=== PATIENT | male | born 1980 | race Caucasian/White ===

== ENCOUNTER 2017-03-26 13:15 | Emergency (ER) | payer OTHER ==
[2017-03-26] MEDS ORDERED: ASPIRIN 325 MG TABLET, ENT COATED PO ONE (13:55)
[2017-03-26] MEDS ORDERED: CLONIDINE HCL 0.2 MG TABLET PO ONE (13:55)
[2017-03-26] MEDS ORDERED: ASPIRIN 325 MG TABLET PO ONE (13:55)
--- NOTE | 2017-03-26 13:58 | ER Document Report ---
ED Medical Screen (RME) - General Chief Complaint: Cough Stated Complaint: CHEST PAIN Time Seen by Provider: 03/26/17 13:54 Mode of Arrival: Wheelchair Information source: Patient, Relative TRAVEL OUTSIDE OF THE [place] IN LAST 30 DAYS: No - HPI Patient complains to provider of: CP/legs swelling Onset: Other - Pt with SSCP for the past several days (has h/o IDDM and HTN) and bilateral leg swelling for the past several months. [place]. - Related Data Allergies/Adverse Reactions: clarithromycin [From Biaxin] Allergy (Verified 03/26/17 13:24) Past Medical History Renal/ Medical History: Denies: Hx Peritoneal Dialysis Physical Exam - Vital signs Vitals: Temp Pulse Resp BP Pulse Ox 98.1 F 87 14 209/116 H 96 03/26/17 13:23 03/26/17 13:23 03/26/17 13:23 03/26/17 13:23 03/26/17 13:23 Course - Vital Signs Vital signs: Temp Pulse Resp BP Pulse Ox 98.1 F 87 14 209/116 H 96 03/26/17 13:23 03/26/17 13:23 03/26/17 13:23 03/26/17 13:23 03/26/17 13:23
--- NOTE | 2017-03-26 14:43 | RADIOLOGY REPORT (SQ) ---
EXAM DESCRIPTION: CHEST PA/LAT COMPLETED DATE/TIME: 03/26/2017 2:32 pm REASON FOR STUDY: CP COMPARISON: None. EXAM PARAMETERS: NUMBER OF VIEWS: two views TECHNIQUE: Digital Frontal and Lateral radiographic views of the chest acquired. RADIATION DOSE: NA LIMITATIONS: none FINDINGS: LUNGS AND PLEURA: No opacities, masses or pneumothorax. No pleural effusion. MEDIASTINUM AND HILAR STRUCTURES: No masses or contour abnormalities. HEART AND VASCULAR STRUCTURES: Heart normal size. No evidence for failure. BONES: No acute findings. HARDWARE: None in the chest. OTHER: No other significant finding. IMPRESSION: NO SIGNIFICANT RADIOGRAPHIC FINDING IN THE CHEST. TECHNICAL DOCUMENTATION: JOB ID: [id number] [employer]- All Rights Reserved
[2017-03-26 14:44] LABS: ABSOLUTE BASOPHILS # (AUTO) 0.1 10^3/uL (0.0-0.2); ABSOLUTE EOSINOPHILS # (AUTO) 0.3 10^3/uL (0.0-0.6); ABSOLUTE LYMPHOCYTES (AUTO) 1.6 10^3/uL (0.5-4.7); ABSOLUTE MONOCYTES (AUTO) 0.5 10^3/uL (0.1-1.4); BASOPHILS % (AUTO) 1.8 % (0-2); HEMATOCRIT 37.5 % (37.9-51.0); HEMOGLOBIN 12.7 g/dL (13.5-17.0); HGB HCT DIFFERENCE 0.6; LYMPHOCYTES % (AUTO) 21.3 % (13-45); MEAN CORPUSCULAR HEMOGLOBIN 27.5 pg (27.0-33.4); MEAN CORPUSCULAR HGB CONC 33.7 g/dL (32.0-36.0); MEAN CORPUSCULAR VOLUME 82 fl (80-97); MONOCYTES % (AUTO) 6.4 % (3-13); RED CELL DISTRIBUTION WIDTH 12.5 % (11.5-14.0); SEGMENTED NEUTROPHILS % (AUTO) 66.5 % (42-78); WHITE BLOOD COUNT 7.5 10^3/uL (4.0-10.5)
[2017-03-26 14:51] LABS: ALANINE AMINOTRANSFERASE 31 U/L (21-72); ALBUMIN 3.4 g/dL (3.5-5.0); ALKALINE PHOSPHATASE 240 U/L (38-126); ANION GAP 10 (5-19); ASPARTATE AMINO TRANSFERASE 16 U/L (17-59); BILIRUBIN,DIRECT 0.4 mg/dL (0.0-0.4); BILIRUBIN,TOTAL 0.5 mg/dL (0.2-1.3); BLOOD UREA NITROGEN 28 mg/dL (7-20); CALCIUM 8.7 mg/dL (8.4-10.2); CARBON DIOXIDE 29 mmol/L (22-30); CHLORIDE 92 mmol/L (98-107); CREATINE KINASE 259 U/L (55-170); POTASSIUM 4.5 mmol/L (3.6-5.0); SODIUM 131.4 mmol/L (137-145); TOTAL PROTEIN 6.1 g/dL (6.3-8.2)
[2017-03-26 14:52] LABS: CREATININE RESULT 1.54 mg/dL (0.52-1.25)
[2017-03-26 15:03] LABS: CREATINE KINASE MB 7.44 ng/mL (<4.55)
[2017-03-26 15:08] LABS: TROPONIN I 0.036 ng/mL
[2017-03-26 15:09] LABS: GLUCOSE 502 mg/dL (75-110)
[2017-03-26] MEDS ORDERED: INSULIN REG, HUMAN 100 UNIT/ML 3 ML VIAL (PYX) SUBCUT ONE (15:14)
[2017-03-26] MEDS ORDERED: NORMAL SALINE 1000 ML 1,000 ML IV PRN (15:14)
[2017-03-26] MEDS ORDERED: FUROSEMIDE 20 MG TABLET PO ONE (15:46)
--- NOTE | 2017-03-26 17:02 | RADIOLOGY REPORT (SQ) ---
EXAM DESCRIPTION: HIP RIGHT AP/LATERAL COMPLETED DATE/TIME: 03/26/2017 4:50 pm REASON FOR STUDY: pain COMPARISON: None. NUMBER OF VIEWS: Two views. TECHNIQUE: AP pelvis and additional frog-leg view of the right hip. LIMITATIONS: None. FINDINGS: MINERALIZATION: Normal. RIGHT HIP: No fracture or dislocation. No worrisome bone lesions. No contour deformity. No joint sp eliecer narrowing. LEFT HIP: No fracture or dislocation. No worrisome bone lesions. PUBIS AND ISCHIUM: No fracture. PELVIS: No fracture. SACRUM: No fracture or dislocation. No worrisome bone lesions. LOWER LUMBAR SPINE: No fracture or dislocation. No worrisome bone lesions. No significant disc disea se. SOFT TISSUES: No findings. OTHER: No other significant finding. IMPRESSION: NEGATIVE STUDY OF THE RIGHT HIP. NO EXPLANATION FOR PAIN. TECHNICAL DOCUMENTATION: JOB ID: [id number] [employer]- All Rights Reserved
--- NOTE | 2017-03-26 17:32 | ER Document Report ---
ED Respiratory Problem - General Chief Complaint: Cough Stated Complaint: CHEST PAIN Time Seen by Provider: 03/26/17 13:54 Mode of Arrival: Wheelchair Information source: Patient TRAVEL OUTSIDE OF THE [place] IN LAST 30 DAYS: No - HPI Patient complains to provider of: Cough, Short of breath Onset: Other - 3 days Duration: Worse/persistent Quality of pain: Achy Severity: Mild Short of Breath: Mild Associated symptoms: Ankle/leg swelling, Congestion, Cough, Short of breath Notes: She is a 37-year-old male with a history of diabetes which is poorly controlled on metformin, presenting to the emergency room complaining of lower extremity swelling that has been going on for quite some time, with some chest tightness and coughing which led to vomiting earlier today, and right-sided hip pain, he denies any injury, no fevers, cough is nonproductive, he does also nonhealing wounds to the plantar surface of his right great toe that has been there for greater than 1 year - Related Data Allergies/Adverse Reactions: clarithromycin [From Biaxin] Allergy (Verified 03/26/17 13:24) Past Medical History - General Information source: Patient, Relative - Social History Smoking Status: Former Smoker Frequency of alcohol use: Rare Drug Abuse: None Family History: Reviewed & Not Pertinent - Past Medical History Cardiac Medical History: Reports: Hx Hypertension Endocrine Medical History: Reports: Hx Diabetes Mellitus Type 2 Renal/ Medical History: Denies: Hx Peritoneal Dialysis Review of Systems - Review of Systems Constitutional: No symptoms reported EENT: No symptoms reported Cardiovascular: See HPI Respiratory: See HPI Gastrointestinal: See HPI Genitourinary: No symptoms reported Male Genitourinary: No symptoms reported Musculoskeletal: See HPI Skin: No symptoms reported Hematologic/Lymphatic: No symptoms reported Neurological/Psychological: No symptoms reported -: Yes All other systems reviewed and negative Physical Exam - Vital signs Vitals: Temp Pulse Resp BP Pulse Ox 98.1 F 87 14 209/116 H 96 03/26/17 13:23 03/26/17 13:23 03/26/17 13:23 03/26/17 13:23 03/26/17 13:23 Interpretation: Hypertensive - General General appearance: Appears well, Alert In distress: None - HEENT Head: Normocephalic, Atraumatic Eyes: Normal Pupils: PERRL - Respiratory Respiratory status: No respiratory distress Chest status: Nontender Breath sounds: Normal Chest palpation: Normal - Cardiovascular Rhythm: Regular Heart sounds: Normal auscultation Murmur: No - Abdominal Inspection: Normal Distension: No distension Bowel sounds: Normal Tenderness: Nontender Organomegaly: No organomegaly - Back Back: Normal, Nontender - Extremities General upper extremity: Normal inspection, Nontender, Normal color, Normal ROM , Normal temperature General lower extremity: Tender - Tenderness to palpate over right greater trochanter laterally, Edema - Pitting to mid calf, Normal color, Normal ROM, Normal temperature, Normal weight bearing. No: Narda's sign Foot: Other - On the plantar surface of the right great toe is a 2 cm ulceration , it is mildly erythematous with granulation tissue, no active bleeding or drainage, no signs of infection - Neurological Neuro grossly intact: Yes Cognition: Normal Orientation: AAOx4 [place] Coma Scale Eye Opening: Spontaneous [place] Coma Scale Verbal: Oriented [place] Coma Scale Motor: Obeys Commands Patti Coma Scale Total: 15 Speech: Normal Motor strength normal: LUE, RUE, LLE, RLE Sensory: Normal - Psychological Associated symptoms: Normal affect, Normal mood - Skin Skin Temperature: Warm Skin Moisture: Dry Skin Color: Normal Course - Re-evaluation Re-evalutation: 03/26/17 18:07 Lab and imaging findings were discussed with patient and spouse at bedside including elevated blood sugar, insulin was ordered, however patient refused stating that that is not why he came to the emergency room and her blood sugar 502 is relatively low for him, his main complaint is the lower extremity swelling, the nonproductive cough and the chest tightness, as well as the right hip pain, symptoms are otherwise related to peripheral edema, I did discuss the implications of having long-term uncontrolled blood sugars in the end or begin damage that can come along with it including peripheral vascular disease leading to lower extremity edema and poor wound healing, I made a referral for patient to the wound care clinic, and he was given a prescription to increase his Lasix dosing to 60 mg once a day for the next week, advised to follow-up with a primary care provider for repeat lab work and evaluation order return if symptoms worsen, patient and spouse acknowledge understanding and agreement with this plan - Vital Signs Vital signs: Temp Pulse Resp BP Pulse Ox 98.1 F 79 16 164/93 H 94 03/26/17 13:23 03/26/17 17:46 03/26/17 17:46 03/26/17 17:46 03/26/17 17:46 - Laboratory Result Diagrams: 03/26/17 14:17 03/26/17 14:17 Laboratory results interpreted by me: 03/26/17 03/26/17 03/26/17 14:17 14:17 14:17 Hgb 12.7 L Hct 37.5 L Sodium 131.4 L Chloride 92 L BUN 28 H Creatinine 1.54 H Est GFR (Non-Af Amer) 51 L Glucose 502 H* AST 16 L Alkaline Phosphatase 240 H Creatine Kinase 259 H CK-MB (CK-2) 7.44 H Total Protein 6.1 L Albumin 3.4 L - Diagnostic Test Radiology reviewed: Image reviewed, Reports reviewed - EKG Interpretation by Me EKG shows normal: Sinus rhythm Rate: Normal Rhythm: NSR [place]/QRS: LAHB/LAFB Voltage: Consistant with [facility] Discharge - Discharge Clinical Impression: Peripheral edema, Hyperglycemia Hypertension Qualifiers: Hypertension type: unspecified Qualified Code(s): I10 - Essential (primary) hypertension Condition: Stable Disposition: HOME, SELF-CARE Instructions: Bursitis ([facility]), Dependent Edema ([facility]), High Blood Pressure ([facility]) , Hyperglycemia ([facility]) Additional Instructions: Follow up with your primary care provider in one to 2 days. Return to the emergency room immediately if symptoms worsen or any additional concerns. Prescriptions: Furosemide [Lasix 20 mg Tablet] 60 mg PO QAM #21 tablet Forms: Return to School
[2017-03-26 17:58] VITALS: BP 164/93
--- NOTE | 2017-03-26 19:27 | EKG REPORT ---
SEVERITY:- ABNORMAL ECG - SINUS RHYTHM LEFT ANTERIOR FASCICULAR BLOCK CONSIDER LEFT VENTRICULAR HYPERTROPHY : Confirmed by: Frankie Gordon MD 26-Mar-2017 19:26:46
== END 2017-03-26 17:49 | disposition home or self-care (01) ==
LOC: ER 13:15
DX: I10 Essential (primary) hypertension (principal); E11.65 Type 2 diabetes mellitus with hyperglycemia; Z79.84 Long term (current) use of oral hypoglycemic drugs; E11.621 Type 2 diabetes mellitus with foot ulcer; L97.519 Non-pressure chronic ulcer of other part of right foot with unspecified severity; R60.0 Localized edema; I44.4 Left anterior fascicular block; R05 Cough; R06.02 Shortness of breath; R07.89 Other chest pain; M25.551 Pain in right hip; R11.10 Vomiting, unspecified; Z88.1 Allergy status to other antibiotic agents; Z53.29 Procedure and treatment not carried out because of patient's decision for other reasons; Z79.899 Other long term (current) drug therapy
CPT/HCPCS: 93005; 99285; 36415; 82553; 82550; 85025; 80053; 84484; 71020; 73502; 93010; J1815

== ENCOUNTER 2017-07-29 15:49 | Inpatient (IN) | payer OTHER ==
[2017-07-29 19:33] LABS: APPEARANCE,URINE CLEAR; BILIRUBIN,URINE NEGATIVE (NEGATIVE); COLOR,URINE STRAW; GLUCOSE, URINE >=500 mg/dL (NEGATIVE); KETONES,URINE NEGATIVE (NEGATIVE); LEUKOCYTE ESTERASE,URINE NEGATIVE (NEGATIVE); NITRITE,URINE NEGATIVE (NEGATIVE); PROTEIN,URINE >=500 mg/dL (NEGATIVE); URINE SPECIFIC GRAVITY 1.012; UROBILINOGEN,URINE NEGATIVE mg/dL (<2.0)
--- NOTE | 2017-07-29 19:46 | ER Document Report ---
ED Medical Screen (RME) - General Chief Complaint: Swelling of Lower Extremity Stated Complaint: COUGH Time Seen by Provider: 07/29/17 19:37 Mode of Arrival: Ambulatory Information source: Patient Notes: 37-year-old male presents to ED for high blood pressure acute renal failure diabetes. He was sent over here by his program therapist Dr. Curtis for a blood pressure 210/120 diabetes type 2 and swelling up to his thigh. Patient states he has been in renal failure before and has a cardiovascular surgeon but is not sure of the doctor's name. His lungs at this time are clear he does have swelling up to his thigh. He states he has been having a cough. I have greeted and performed a rapid initial assessment of this patient. A comprehensive ED assessment and evaluation of the patient, analysis of test results and completion of medical decision making process will be conducted by an additional ED providers. TRAVEL OUTSIDE OF THE [place] IN LAST 30 DAYS: No - Related Data Allergies/Adverse Reactions: clarithromycin [From Biaxin] Allergy (Verified 07/29/17 15:51) Past Medical History - Social History Frequency of alcohol use: None Drug Abuse: None - Past Medical History Cardiac Medical History: Reports: Hx Hypertension Endocrine Medical History: Reports: Hx Diabetes Mellitus Type 2 Renal/ Medical History: Denies: Hx Peritoneal Dialysis Physical Exam - Vital signs Vitals: Temp Pulse Resp BP Pulse Ox 98.5 F 99 18 190/102 H 96 07/29/17 16:02 07/29/17 16:02 07/29/17 16:02 07/29/17 16:02 07/29/17 16:02 Course - Vital Signs Vital signs: Temp Pulse Resp BP Pulse Ox 97.9 F 96 16 193/114 H 95 07/29/17 19:31 07/29/17 19:31 07/29/17 19:31 07/29/17 19:31 07/29/17 19:31 - Laboratory Laboratory results interpreted by me: 07/29/17 18:25 Urine Protein >=500 H Urine Glucose (UA) >=500 H Urine Blood LARGE H
[2017-07-29 20:25] LABS: ABSOLUTE BASOPHILS # (AUTO) 0.1 10^3/uL (0.0-0.2); ABSOLUTE EOSINOPHILS # (AUTO) 0.4 10^3/uL (0.0-0.6); ABSOLUTE LYMPHOCYTES (AUTO) 1.5 10^3/uL (0.5-4.7); ABSOLUTE MONOCYTES (AUTO) 0.5 10^3/uL (0.1-1.4); ABSOLUTE NEUT (AUTO) 5.2 10^3/uL (1.7-8.2); BASOPHILS % (AUTO) 1.4 % (0-2); EOSINOPHILS % (AUTO) 5.2 % (0-6); HEMATOCRIT 33.5 % (37.9-51.0); HEMOGLOBIN 11.5 g/dL (13.5-17.0); LYMPHOCYTES % (AUTO) 19.6 % (13-45); MEAN CORPUSCULAR HEMOGLOBIN 27.6 pg (27.0-33.4); MEAN CORPUSCULAR HGB CONC 34.3 g/dL (32.0-36.0); MEAN CORPUSCULAR VOLUME 81 fl (80-97); MONOCYTES % (AUTO) 6.1 % (3-13); PLATELET COUNT 284 10^3/uL (150-450); RED BLOOD COUNT 4.16 10^6/uL (4.35-5.55); RED CELL DISTRIBUTION WIDTH 13.6 % (11.5-14.0); SEGMENTED NEUTROPHILS % (AUTO) 67.7 % (42-78); TOTAL CELLS COUNTED % (AUTO) 100 %; WHITE BLOOD COUNT 7.7 10^3/uL (4.0-10.5)
[2017-07-29 20:35] LABS: ALANINE AMINOTRANSFERASE 31 U/L (21-72); ALBUMIN 3.3 g/dL (3.5-5.0); ALKALINE PHOSPHATASE 135 U/L (38-126); ANION GAP 10 (5-19); ASPARTATE AMINO TRANSFERASE 20 U/L (17-59); BILIRUBIN,DIRECT 0.3 mg/dL (0.0-0.4); BILIRUBIN,TOTAL 0.4 mg/dL (0.2-1.3); BLOOD UREA NITROGEN 63 mg/dL (7-20); CALCIUM 9.3 mg/dL (8.4-10.2); CARBON DIOXIDE 26 mmol/L (22-30); CHLORIDE 100 mmol/L (98-107); CREATINE KINASE 324 U/L (55-170); POTASSIUM 4.9 mmol/L (3.6-5.0); SODIUM 136.4 mmol/L (137-145); TOTAL PROTEIN 6.1 g/dL (6.3-8.2)
[2017-07-29 20:48] LABS: GLUCOSE 478 mg/dL (75-110)
[2017-07-29] MEDS ORDERED: NORMAL SALINE 1000 ML 1,000 ML IV ONE (21:09)
[2017-07-29 21:29] LABS: VENOUS BLOOD BASE EXCESS 1.2 mmol/L; VENOUS BLOOD PCO2 47.8 mmHg (35-63); VENOUS BLOOD PH 7.37 (7.30-7.42)
[2017-07-29] MEDS ORDERED: IPRATROPIUM/ALBUTEROL 0.5-2.5 MG/3 ML AMPUL NEB ONE (22:35)
--- NOTE | 2017-07-29 22:36 | ER Document Report ---
ED General - General Mode of Arrival: Ambulatory Information source: Patient TRAVEL OUTSIDE OF THE [place] IN LAST 30 DAYS: No <AUTUMN STRINGER - Last Filed: 07/30/17 03:20> <ABENA HICKS - Last Filed: 07/30/17 04:01> - General Chief Complaint: Swelling of Lower Extremity Stated Complaint: COUGH Time Seen by Provider: 07/29/17 19:37 Notes: Patient is a 37-year-old male who presents to the emergency department today with complaints of "bad kidney function". Patient states he has a history of "kidney problems" but has had limited workups secondary to "not having enough money". Patient states he has only urinated twice today. Patient admits to having very uncontrolled diabetes. Patient now has a cough with associated wheezing. Patient denies any nausea, vomiting, or abdominal pain. (AUTUMN STRINGER) - Related Data Allergies/Adverse Reactions: clarithromycin [From Biaxin] Allergy (Verified 07/29/17 15:51) Past Medical History - General Information source: Patient - Social History Smoking Status: Former Smoker Cigarette use (# per day): No Frequency of alcohol use: None Drug Abuse: None Lives with: Family Family History: Reviewed & Not Pertinent Patient has suicidal ideation: No Patient has homicidal ideation: No - Past Medical History Cardiac Medical History: Reports: Hx Hypertension Endocrine Medical History: Reports: Hx Diabetes Mellitus Type 2 Surgical Hx: Negative <AUTUMN STRINGER - Last Filed: 07/30/17 03:20> Review of Systems - Review of Systems Constitutional: No symptoms reported EENT: No symptoms reported Cardiovascular: No symptoms reported Respiratory: See HPI, Cough, Wheezing Gastrointestinal: denies: Nausea, Vomiting Genitourinary: No symptoms reported Male Genitourinary: No symptoms reported Musculoskeletal: No symptoms reported Skin: No symptoms reported Hematologic/Lymphatic: No symptoms reported Neurological/Psychological: No symptoms reported -: Yes All other systems reviewed and negative <AUTUMN STRINGER - Last Filed: 07/30/17 03:20> Physical Exam <AUTUMN STRINGER - Last Filed: 07/30/17 03:20> <ABENA HICKS - Last Filed: 07/30/17 04:01> - Vital signs Vitals: Temp Pulse Resp BP Pulse Ox 98.5 F 99 18 190/102 H 96 07/29/17 16:02 07/29/17 16:02 07/29/17 16:02 07/29/17 16:02 07/29/17 16:02 - Notes Notes: Physical Exam: General: Alert, appears well. HEENT: Normocephalic. Atraumatic. PERRL. Extraocular movements intact. Oropharynx clear. Dry mucous membranes. Neck: Supple. Non-tender. Respiratory: No respiratory distress. Wheezing at the bases bilaterally. Cough. Cardiovascular: Regular rate and rhythm. Abdominal: Normal Inspection. Non-tender. No distension. Normal Bowel Sounds. Back: Non-tender. No deformity or step off. Extremities: Moves all four extremities. Upper extremities: Normal inspection. Normal ROM. Lower extremities: No pitting edema, mild edema bilaterally. Normal ROM. Neurological: Normal cognition. AAOx4. Normal speech. Psychological: Normal affect. Normal Mood. Skin: Warm. Dry. Normal color. No rashes. (AUTUMN STRINGER) Course - Laboratory Result Diagrams: 07/29/17 20:04 07/29/17 20:04 <AUTUMN STRINGER - Last Filed: 07/30/17 03:20> - Laboratory Result Diagrams: 07/29/17 20:04 07/29/17 20:04 - Diagnostic Test Radiology reviewed: Image reviewed, Reports reviewed <ABENA HICKS - Last Filed: 07/30/17 04:01> - Re-evaluation Re-evalutation: Patient is a 37-year-old male who presents from his doctor's office with concerns of renal failure. Patient states that he has had some lower extremity swelling. Also states that he has had a cough and has been wheezing recently. Patient does have a expiratory wheeze at his bases bilaterally. Some concern for fluid overload. Renal function is worse since the patient's last visit in March. Patient's blood sugar here in the emergency department is over 400. states that this is normal for the patient. Initially she did not want him to receive insulin because 400 is a normal blood sugar. Explained that I would strongly recommend that during this hospital stay we get the patient's blood sugar under control so he could be given a regimen to better control at home. Doppler of renal function performed with no acute findings. Some mild congestion on chest x-ray. Patient was discussed with the hospitalist service and will be admitted for further evaluation and treatment of his hyperglycemia. Consult has been placed to nephrology. Patient is agreeable to workup and staying in the hospital. Stable time of admission. (ABENA HICKS) - Vital Signs Vital signs: Temp Pulse Resp BP Pulse Ox 97.9 F 101 H 16 178/88 H 90 L 07/30/17 02:36 07/30/17 02:16 07/30/17 02:16 07/30/17 02:16 07/30/17 02:16 - Laboratory Laboratory results interpreted by me: 07/29/17 07/29/17 07/29/17 18:25 20:04 20:04 RBC 4.16 L Hgb 11.5 L Hct 33.5 L Sodium 136.4 L BUN 63 H Creatinine 3.08 H Est GFR ( Amer) 28 L Est GFR (Non-Af Amer) 23 L Glucose 478 H* POC Glucose Alkaline Phosphatase 135 H Creatine Kinase 324 H CK-MB (CK-2) Total Protein 6.1 L Albumin 3.3 L Urine Protein >=500 H Urine Glucose (UA) >=500 H Urine Blood LARGE H 07/29/17 07/29/17 20:04 22:19 RBC Hgb Hct Sodium BUN Creatinine Est GFR ( Amer) Est GFR (Non-Af Amer) Glucose POC Glucose 403 H* Alkaline Phosphatase Creatine Kinase CK-MB (CK-2) 15.10 H Total Protein Albumin Urine Protein Urine Glucose (UA) Urine Blood Discharge <AUTUMN STRINGER - Last Filed: 07/30/17 03:20> - Discharge Admitting Provider: Hospitalist [facility] Admitted: Telemetry <ABENA HICKS - Last Filed: 07/30/17 04:01> - Discharge Clinical Impression: Acute renal insufficiency, Uncontrolled hypertension, Wheezing Hyperglycemia due to type 2 diabetes mellitus Qualifiers: 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 insulin use: with termite renewal inspector use Qualified Code(s): E11.65 - Type 2 diabetes mellitus with hyperglycemia; Z79.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 (ABENA HICKS) Scribe Documentation - Scribe Written by Scribe:: Jesus Jarquin, 07/30/2017 0325 acting as scribe for :: Malik <AUTUMN STRINGER - Last Filed: 07/30/17 03:20>
--- NOTE | 2017-07-30 00:09 | RADIOLOGY REPORT (SQ) ---
EXAM DESCRIPTION: CHEST PA/LAT COMPLETED DATE/TIME: 07/29/2017 10:47 pm REASON FOR STUDY: cough, wheezing COMPARISON: Chest x-ray 03/26/2017. EXAM PARAMETERS: NUMBER OF VIEWS: two views TECHNIQUE: Digital Frontal and Lateral radiographic views of the chest acquired. RADIATION DOSE: NA LIMITATIONS: none FINDINGS: LUNGS AND PLEURA: No consolidation, pneumothorax or pleural effusion. MEDIASTINUM AND HILAR STRUCTURES: No masses or contour abnormalities. HEART AND VASCULAR STRUCTURES: Heart normal size. There is mild central vascular congestion. BONES: No acute findings. HARDWARE: None in the chest. IMPRESSION: Mild central vascular congestion. TECHNICAL DOCUMENTATION: JOB ID: [id number] [employer]- All Rights Reserved
--- NOTE | 2017-07-30 00:20 | RADIOLOGY REPORT (SQ) ---
EXAM DESCRIPTION: U/S LTD DUPLEX ART/RAGHAV FLOW COMPLETED DATE/TIME: 07/29/2017 11:41 pm REASON FOR STUDY: renal failure, evaluate blood flow . Diabetic patient. COMPARISON: None. TECHNIQUE: Grayscale images acquired of the kidneys and the urinary bladder. Selected color Doppler, velocities and spectral images recorded. LIMITATIONS: None. FINDINGS: RIGHT KIDNEY: RENAL ARTERY VELOCITIES: 103.1 cm/sec. Segmental artery velocity 77.6 cm/sec. RENAL VEIN: Patent. VELOCITY RATIO: 0.67. Normal waveforms. KIDNEY: Measures 11.3 cm in length. No hydronephrosis. LEFT KIDNEY: RENAL ARTERY VELOCITIES: 92.3 cm/sec. Segmental artery velocity 75.6 cm/sec. RENAL VEIN: Patent. VELOCITY RATIO: 0.60. Normal waveforms. KIDNEY: Measures 13 cm in length. No hydronephrosis. BLADDER: Bilateral ureteral jets were visualized. IMPRESSION: NO DOPPLER EVIDENCE OF HEMODYNAMICALLY SIGNIFICANT RENAL ARTERY STENOSIS. COMMENT: NORMAL RENAL ARTERY/AORTA VELOCITY RATIO IS LESS THAN OR EQUAL TO 3.5. TECHNICAL DOCUMENTATION: JOB ID: [id number] 2010 [employer] All Rights Reserved
[2017-07-30] MEDS ORDERED: ACETAMINOPHEN 325 MG TABLET PO PRN (01:58)
[2017-07-30] MEDS ORDERED: DEXTROSE 50%-WATER 25 GM/50 ML DISP.SYRIN IV PRN ×2 (02:10)
[2017-07-30] MEDS ORDERED: DEXTROSE 40% GEL 15 GM TUBE PO PRN ×2 (02:10)
[2017-07-30] MEDS ORDERED: MORPHINE SULFATE 10 MG/ML INJ IV ONE (02:10)
[2017-07-30] MEDS ORDERED: GLUCAGON,HUMAN RECOMB 1 MG INJ IM PRN (02:10)
[2017-07-30] MEDS ORDERED: INSULIN GLARGINE,HUM.REC.ANLOG 300 UNIT/3 ML INSULN.PEN SUBCUT ONE ×2 (02:30→02:42)
[2017-07-30] MEDS: NITROGLYCERIN 2% OINTMENT 1 GM PACKET TP SCH ×2 (02:43→06:07)
[2017-07-30 03:21] LABS: CREATINE KINASE MB 11.3 ng/mL (<4.55); TROPONIN I 0.034 ng/mL
[2017-07-30 03:27] LABS: FREE T4 (FREE THYROXINE) 1.33 ng/dL (0.78-2.19)
[2017-07-30 03:41] LABS: THYROID STIMULATING HORMONE 5.99 uIU/mL (0.47-4.68)
[2017-07-30] MEDS: HEPARIN SOD (PORCINE) 5,000 UNIT/ML 1 ML SYRINGE SUBCUT SCH ×2 (06:06→15:21)
--- NOTE | 2017-07-30 07:55 | EKG REPORT ---
SEVERITY:- ABNORMAL ECG - SINUS TACHYCARDIA PROBABLE LEFT ATRIAL ABNORMALITY LEFT ANTERIOR FASCICULAR BLOCK ABNRM R PROG, CONSIDER ASMI OR LEAD PLACEMENT NONSPECIFIC ST-T CHANGES- LATERAL LEADS : Confirmed by: Frankie Gordon MD 30-Jul-2017 07:54:31
[2017-07-30] MEDS ORDERED: HYDRALAZINE HCL INJ/PF 20 MG/1 ML SDV IV PRN (08:07)
--- NOTE | 2017-07-30 08:13 | PDOC H&P ---
History of Present Illness Admission Date/PCP: 07/30/17 00:38 HUGO RYDER MD History of Present Illness: CECILIO ALCAZAR JR is a 37 year old male With past medical history of hypertension , chronic kidney disease, poorly controlled diabetes mellitus who presents to the emergency department with acute renal failure. Patient was reported to be instructed to come to the emergency departmentby his revenue cycle administrator. He was found to have a blood pressure of 210/120. He reports he has been seeing endocrinology for his blood glucose and had this has been improving although normally his blood sugars in the 900-1000 range. He reports swelling in his lower extremities up to his thighs that has been worsening. He reports dyspnea on exertion as well as orthopnea. He has symptoms at rest. He is referred to the hospital service for acute on chronic renal failure, poorly controlled diabetes mellitus, and acute congestive heart failure. Patient does not have his medication list. Current list is automatically generated by [employer] and does not reflect an accurate description of his medications Past Medical History Cardiac Medical History: Reports: Hypertension Endocrine Medical History: Reports: Diabetes Mellitus Type 2 Past Surgical History Past Surgical History: Reports: None Social History Smoking Status: Former Smoker - Advance Directive Resuscitation Status: Full Code Surrogate healthcare decision maker:: Ev Gee, Family History Family History: CAD, DM Parental Family History Reviewed: Yes Children Family History Reviewed: No Sibling(s) Family History Reviewed.: Yes Medication/Allergy Allergies/Adverse Reactions: clarithromycin [From Biaxin] Allergy (Verified 07/29/17 15:51) Review of Systems Constitutional: PRESENT: fatigue. ABSENT: chills, fever(s), headache(s), weight gain, weight loss Eyes: ABSENT: visual disturbances Ears: ABSENT: hearing changes Cardiovascular: PRESENT: dyspnea on exertion, edema, orthropnea. ABSENT: chest pain, palpitations Respiratory: PRESENT: cough, dyspnea. ABSENT: hemoptysis, sputum Gastrointestinal: ABSENT: abdominal pain, constipation, diarrhea, hematemesis, hematochezia, melena, nausea, vomiting Genitourinary: ABSENT: dysuria, hematuria Musculoskeletal: ABSENT: joint swelling Integumentary: ABSENT: rash, wounds Neurological: ABSENT: abnormal gait, abnormal speech, confusion, dizziness, focal weakness, syncope Psychiatric: ABSENT: anxiety, depression, homidical ideation, suicidal ideation Endocrine: ABSENT: cold intolerance, heat intolerance, polydipsia, polyuria Hematologic/Lymphatic: ABSENT: easy bleeding, easy bruising Physical Exam Vital Signs: Temp Pulse Resp BP Pulse Ox 97.9 F 101 H 16 178/88 H 90 L 07/30/17 02:16 07/30/17 02:16 07/30/17 02:16 07/30/17 02:16 07/30/17 02:16 General appearance: PRESENT: mild distress, obese, well-developed, well- nourished Head exam: PRESENT: atraumatic, normocephalic Eye exam: PRESENT: conjunctiva pink, EOMI, PERRLA. ABSENT: scleral icterus Ear exam: PRESENT: normal external ear exam Mouth exam: PRESENT: moist, tongue midline Neck exam: PRESENT: JVD. ABSENT: lymphadenopathy, thyromegaly, tracheal deviation Respiratory exam: PRESENT: rales. ABSENT: rhonchi, wheezes Cardiovascular exam: PRESENT: RRR, +S1, +S2. ABSENT: diastolic murmur, rubs, systolic murmur Pulses: PRESENT: normal dorsalis pedis pul Vascular exam: PRESENT: normal capillary refill GI/Abdominal exam: PRESENT: normal bowel sounds, soft. ABSENT: distended, guarding, mass, organolmegaly, rebound, tenderness Rectal exam: PRESENT: deferred Extremities exam: PRESENT: full ROM, other - 3+ bilateral lower extremity edema. ABSENT: calf tenderness, clubbing Neurological exam: PRESENT: alert, awake, oriented to person, oriented to place , oriented to time, oriented to situation, CN II-XII grossly intact. ABSENT: motor sensory deficit Psychiatric exam: PRESENT: appropriate affect, normal mood. ABSENT: homicidal ideation, suicidal ideation Skin exam: PRESENT: dry, intact, warm. ABSENT: cyanosis, rash Results Impressions: Chest X-Ray 07/29/17 22:35 IMPRESSION: Mild central vascular congestion. Vascular Ultrasound 07/29/17 22:36 IMPRESSION: NO DOPPLER EVIDENCE OF HEMODYNAMICALLY SIGNIFICANT RENAL ARTERY STENOSIS. Assessment & Plan - Diagnosis (1) Acute congestive heart failure Qualifiers: Congestive heart failure type: unspecified Qualified Code(s): I50.9 - Heart failure, unspecified Is this a current diagnosis for this admission?: Yes Plan: Obtain echo. At this time avoid JOSUÉ/ARB secondary to renal dysfunction. No beta-taylor at this time due to patient's acute congestive heart failure status (2) Hyperglycemia due to type 2 diabetes mellitus Qualifiers: Diabetes mellitus prison insulin use: with prison use Qualified Code( s): E11.65 - Type 2 diabetes mellitus with hyperglycemia; Z79.4 - termination clerk ( current) use of insulin; Z79.4 - penitentiary (current) use of insulin; Z79.4 - penitentiary (current) use of insulin; Z79.4 - penitentiary (current) use of insulin Is this a current diagnosis for this admission?: Yes Plan: Continue patient on Lantus and increase this. Lispro before meals. ADA diet (3) Uncontrolled hypertension Is this a current diagnosis for this admission?: Yes Plan: PRN hydralazine (4) Acute on chronic renal failure Is this a current diagnosis for this admission?: Yes Plan: Consult Dr. Freedman of nephrology. Ultrasound of the kidney reveals no BRIA. Obtain a 24-hour urineCreatinine and protein. Concern for glomerulonephritis or glomerular nephrotic syndrome. Concern for glomerulonephritis comes from patient's hematuria. - Time Time Spent: 30 to 50 Minutes Medications reviewed and adjusted accordingly: Yes
[2017-07-30] MEDS: INSULIN LISPRO 100 UNIT/ML 3 ML VIAL SUBCUT SCH ×3 (09:06→16:32)
[2017-07-30] MEDS: BUMETANIDE INJ/PF 1 MG/4 ML SDV IV SCH ×2 (09:25→17:07)
[2017-07-30] MEDS: ONDANSETRON HCL INJ/PF 4 MG/2 ML SDV IV PRN ×2 (09:26→17:23)
[2017-07-30] MEDS: ASPIRIN 81 MG TABLET, ENT COATED PO SCH (09:27)
[2017-07-30] MEDS: AMLODIPINE BESYLATE 5 MG TABLET PO SCH ×2 (09:27→23:51)
[2017-07-30 10:15] LABS: ANION GAP 10 (5-19); BLOOD UREA NITROGEN 56 mg/dL (7-20); CALCIUM 9.3 mg/dL (8.4-10.2); CARBON DIOXIDE 26 mmol/L (22-30); CHLORIDE 104 mmol/L (98-107); CHOLESTEROL 170.73 mg/dL (0-200); CREATINE KINASE 302 U/L (55-170); GLUCOSE 241 mg/dL (75-110); POTASSIUM 4.2 mmol/L (3.6-5.0); SODIUM 139.9 mmol/L (137-145); TRIGLYCERIDES 104 mg/dL (<150)
[2017-07-30 10:20] LABS: TROPONIN I 0.055 ng/mL
[2017-07-30 10:26] LABS: DIRECT LDL 87 mg/dL (<100)
[2017-07-30] MEDS ORDERED: NITROGLYCERIN 2% OINTMENT 1 GM PACKET TP SCH (12:00)
--- NOTE | 2017-07-30 13:49 | PROGRESS NOTE E ---
Progress Note NAME: CECILIO ALCAZAR : 1980 AGE: 37Y DATE: 07/30/2017 ROOM: 415 SUBJECTIVE: The patient is lying in bed. The patient is quite easily agitated and is not very forthcoming with history. The patient states that he has been awakened too much and that the facility is not comfortable for him. The patient denies any shortness of breath, dizziness, or chest pain. The patient apparently had some nausea earlier this morning and has not taken his cardiac medications because of this, although the patient denied nausea to me. The patient has had no fevers, chills. No shortness of breath, dizziness. The patient states that he has only urinated once since being in the facility, and the patient does not voice any other concerns at this time. REVIEW OF SYSTEMS: Rest of review of systems negative. MEDICATIONS: Medications have been reviewed. OBJECTIVE: GENERAL: The patient is a 37-year-old male who is awake, alert. He is oriented to person, place, time, and situation. He does not appear to be distressed. VITAL SIGNS: Temperature is 98.2, pulse 92, respirations 16, blood pressure is 168/98, oxygen saturation is 95% on room air. SKIN: Warm and dry. He is quite pale. No rash. He is not diaphoretic. HEENT: Pupils equal, round, and reactive to light and accommodation. Conjunctiva is pink. The patient does have JVP up to the right ear. CARDIOVASCULAR SYSTEM: Heart is regular. I cannot appreciate a gallop. No rub. CHEST: Clear, symmetrical, unlabored. ABDOMEN: Soft, nontender, nondistended. BACK: No sacral edema. EXTREMITIES: The patient does have bilateral lower extremity trace pitting edema, much more so in his thighs. PSYCHIATRIC: The patient is not pleasant or verbally cooperative. DIAGNOSTICS: Lab values are as follows: Hematology obtained on 07/29/2017: WBCs are 7.7, hemoglobin is 11.5, hematocrit is 33.5, platelet count is 284,000. Chemistry obtained on 07/30/2017: Sodium is 139, potassium 4.2, chloride is 104, carbon dioxide 26, BUN 56, creatinine 3, glucose 241, calcium is 9.3, CK is 302. Troponin is 0.055. Triglycerides are 104, cholesterol 170, LDL 87, VLDL is 21, HDL is 40. IMPRESSION AND PLAN: 1. VOLUME OVERLOAD. THIS IS CHF VERSUS RENAL FAILURE. UNCERTAIN OF THE EXACT ETIOLOGY OF THIS. Echocardiogram is pending. Will continue to diurese the patient. Will appreciate Nephrology input with this. Do have a high suspicion for cardiomyopathy due to his poorly controlled hypertension and diabetes. 2. HYPERTENSIVE URGENCY. The patient is refusing medications. Will continue to cover with p.r.n. IV medications and follow. 3. ACUTE ON CHRONIC KIDNEY DISEASE, UNABLE TO FURTHER STAGE. It appears the patient did have a creatinine in the 1.9 range back in March, most likely an underlying stage 3. However, will await Nephrology's input for further classification. 4. DIABETES MELLITUS, MOST LIKELY TYPE 1. Will continue the patient's home insulins. The patient's glucose is much better controlled at this time. DISPOSITION: The patient is a FULL CODE. Pending patient's symptomatology and diagnostic findings, we will re-evaluate in the a.m. Time spent on this followup including assessment, plan, physical examination, patient education, review of records, specialty collaboration is 60 minutes. DICTATING PHYSICIAN: RONALD SWANSON NP [id number] PHY#: [id number] ID: [id number] JOB#: [id number] ACCT: [id number] cc: >
[2017-07-30 14:54] LABS: CREATINE KINASE MB 8.84 ng/mL (<4.55); TROPONIN I 0.046 ng/mL
--- NOTE | 2017-07-30 15:59 | PDOC CONSULTATION ---
Consultation Consult Date: 07/30/17 Attending physician:: GLEN SWANSON Consult reason:: I was asked by Dr. Peraza from the emergency room and the hospitalist service with Glen Swanson to see this patient because of worsening kidney failure. History of Present Illness Admission Date/PCP: 07/30/17 00:38 HUGO RYDER MD History of Present Illness: CECILIO ALCAZAR JR is a 37 year old male With past medical history of hypertension , chronic kidney disease, poorly controlled diabetes mellitus who presents to the emergency department with acute renal failure. Patient was reported to be instructed to come to the emergency departmentby his records supervisor. He was found to have a blood pressure of 210/120. He reports he has been seeing endocrinology for his blood glucose and had this has been improving although normally his blood sugars in the 900-1000 range. He reports swelling in his lower extremities up to his thighs that has been worsening. He reports dyspnea on exertion as well as orthopnea. He has symptoms at rest. He was admitted by hospital service for acute on chronic renal failure, poorly controlled diabetes mellitus, and acute congestive heart failure. I saw the patient in my office last month for the first time. His BUN/ creatinine from April 20, 2017 were 31 and 2.0 with EGFR of 39.09. Prior to that on March 26, 2017 had a BUN of 28, creatinine of 1.54 and EGFR of 51. When he came in this 1 this time he has a BUN of 63 and creatinine of 2.08 with estimated GFR of 23. Today he has a BUN of 56 creatinine 3.02 and estimated GFR 24. He is making some urine. Patient has significant proteinuria and microhematuria. He presented with this findings when I saw him a month ago and I did order blood work and urine testing which unfortunately the patient did not do. I was supposed to see him this week to review all the workup that he was supposed to do but he also canceled that because he went to [place]. Patient and his spouse went to [place] for 10 days for the holidays and just got back couple of days ago. Patient continues to experience above symptoms. He tells me he feels drained and his shortness of breath has been worse for the last couple of days. When I saw him last month in June he was having nausea and vomiting and so he was unable to tolerate his oral medications including blood pressure medications. His blood pressure usually runs 190-200/ 100-120. I gave him a clonidine patch 0.2 mg which he only use for a week. He claims that the nausea and vomiting improved after a week of seeing me and so he started taking his oral blood pressure medications. For his nausea and vomiting he was seeing filling mixer Dr. Broderick. He underwent EGD and colonoscopy showing antral erosions and some colon polyps. He was also seeing an cleaner and dyer at [facility] but his blood sugar is really running very high anyways. Currently he said his appetite is decreased today. He has some nonproductive cough and denies any fever no chills. At home he tells me that he is taking Lasix 20 mg 3 tablets once a day but reportedly his legs continues to swell. He could not really tell me what blood pressure medications he was taking at home orally. He is agreeable to doing workup for his kidney disease. 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 [employer] Lives with: Spouse/Significant other Smoking Status: Former Smoker Number of Years Smokin Frequency of Alcohol Use: Rare Hx Recreational Drug Use: No Drugs: None - Advance Directive Resuscitation Status: Full Code Family History Family History: CAD - Father, DM - Maternal grandmother and mother, Hypertension - Mother and father Parental Family History Reviewed: Yes Children Family History Reviewed: NA Sibling(s) Family History Reviewed.: Yes Medication/Allergy Allergies/Adverse Reactions: clarithromycin [From Biaxin] Allergy (Verified 07/29/17 15:51) Review of Systems All systems: reviewed and no additional remarkable complaints except as stated Review of Systems: Constitutional: ABSENT: chills, fever(s), headache(s), weight gain, weight loss ; admits fatigue, decrease in appetite Eyes: ABSENT: visual disturbances Ears: ABSENT: hearing changes Cardiovascular: ABSENT: chest pain, orthropnea, palpitations; admits worsening shortness of breath and lower extremity edema Respiratory: ABSENT: Hemoptysis; admits dry cough Gastrointestinal: ABSENT: abdominal pain, constipation, diarrhea, hematemesis, hematochezia; admits nausea, vomiting Genitourinary: ABSENT: dysuria, hematuria Musculoskeletal: ABSENT: joint swelling Integumentary: ABSENT: rash, wounds Neurological: ABSENT: abnormal gait, abnormal speech, confusion, dizziness, focal weakness, numbness, syncope Psychiatric: ABSENT: anxiety, depression Endocrine: ABSENT: cold intolerance, heat intolerance, polydipsia, polyuria Hematologic/Lymphatic: ABSENT: easy bleeding, easy bruising, lymphadenopathy Physical Exam Vital Signs: Temp Pulse Resp BP Pulse Ox 97.2 F 88 16 138/73 H 96 07/30/17 10:52 07/30/17 10:52 07/30/17 10:52 07/30/17 10:52 07/30/17 10:52 Intake & Output 07/29/17 07/30/17 07/31/17 06:59 06:59 06:59 Intake Total 50 Output Total 650 Balance -600 Weight 108.3 kg Exam: General appearance: no acute distress, cooperative, well-developed, well- nourished Head exam: PRESENT: atraumatic, normocephalic Eye exam: PRESENT: Conjunctiva mildly pale, EOMI, PERRLA. ABSENT: conjunctival injection, scleral icterus Mouth exam: PRESENT: moist, neck supple, tongue midline Neck exam: PRESENT: full ROM. ABSENT: carotid bruit, JVD, lymphadenopathy, thyromegaly Respiratory exam: PRESENT: clear to auscultation bilaterally. ABSENT: rales, rhonchi, stridor, wheezes Cardiovascular exam: PRESENT: RRR, +S1, +S2. ABSENT: systolic murmur Pulses: PRESENT: normal radial pulses, normal dorsalis pedis pulses GI/Abdominal exam: PRESENT: normal bowel sounds, soft. ABSENT: guarding, mass, tenderness Rectal exam: deferred Extremities exam: PRESENT: full ROM. Grade 2 bilateral lower extremity pitting edema which seems to have improved according to the patient and spouse ABSENT: calf tenderness Musculoskeletal: PRESENT: full ROM. ABSENT: deformity Neurological exam: PRESENT: alert, Awake, Oriented to person, Oriented to place , Oriented to time, reflexes normal, CN II-XII grossly intact. ABSENT: motor sensory deficit Psychiatric exam: PRESENT: appropriate affect, normal mood. ABSENT: homicidal ideation, suicidal ideation Skin exam: PRESENT: intact, dry, warm. ABSENT: rash Results Laboratory Results: 07/30/17 08:47 07/30/17 07/30/17 02:40 08:47 Sodium 139.9 Potassium 4.2 Chloride 104 Carbon Dioxide 26 Anion Gap 10 BUN 56 H Creatinine 3.02 H Est GFR ( Amer) 29 L Est GFR (Non-Af Amer) 24 L Glucose 241 H Calcium 9.3 Triglycerides 104 Cholesterol 170.73 LDL Cholesterol Direct 87 VLDL Cholesterol 21.0 HDL Cholesterol 40 TSH 5.99 H Free T4 1.33 07/30/17 07/30/17 07/30/17 02:40 02:40 08:47 Creatine Kinase 298 H 302 H CK-MB (CK-2) 11.30 H Troponin I 0.034 07/30/17 07/30/17 07/30/17 08:47 13:55 13:55 Creatine Kinase 260 H CK-MB (CK-2) 10.00 H 8.84 H Troponin I 0.055 0.046 Impressions: Chest X-Ray 07/29/17 22:35 IMPRESSION: Mild central vascular congestion. Vascular Ultrasound 07/29/17 22:36 IMPRESSION: NO DOPPLER EVIDENCE OF HEMODYNAMICALLY SIGNIFICANT RENAL ARTERY STENOSIS. Assessment & Plan - Diagnosis (1) Acute kidney injury superimposed on chronic kidney disease Is this a current diagnosis for this admission?: Yes Plan: This is most likely secondary to uncontrolled hypertension, hemodynamic factors and uncontrolled diabetes mellitus. Patient seems to have a very progressive chronic kidney disease because of the above. High likelihood that the patient has diabetic nephropathy and hypertensive nephrosclerosis however due to the presence of microhematuria with possible nephrotic range proteinuria we also need to rule out other glomerular disease. I will do workup to rule this out. Patient will also need a percutaneous renal biopsy with CT guidance for definitive diagnosis which can affect therapy and prognostication. At this time the patient does not need any renal replacement therapy. Continue to monitor kidney function and electrolytes. Agree with reinitiation of diuretics with Bumex. Hold off on any JOSUÉ inhibitors or ARB's. Avoid any further nephrotoxic agents including nonsteroidal anti-inflammatory agents and contrast. Adjust medications according to kidney function. I will arrange percutaneous kidney biopsy hopefully to be done on Wednesday. We will send all serologies for workup. I discussed my assessment and plan with the patient and her spouse at bedside. I also explained to them that the patient's kidney function seems to be deteriorating fast likely due to uncontrolled hypertension and diabetes which needs to be both controlled slowly. I also told him the possibility of patient ending up possibility on dialysis if his kidney function continues to deteriorate. I will monitor closely while here in the hospital. (2) Proteinuria Is this a current diagnosis for this admission?: Yes (3) Microhematuria Is this a current diagnosis for this admission?: Yes (4) Uncontrolled hypertension Is this a current diagnosis for this admission?: Yes Plan: Since the patient is very used to systolic blood pressure of 190s-200s, I think our target systolic blood pressure should not be any less than 150-170s. I change parameters for his as needed hydralazine. Lowering the blood pressure of this patient to fast may actually cause damage to the kidneys more. His initial duplex of renal arteries did not show any renal artery stenosis. We will workup further for any other secondary causes of hypertension here in the hospital. (5) Uncontrolled type 2 diabetes mellitus Qualifiers: Diabetes mellitus complication status: with neurologic complications Diabetes mellitus complication detail: with autonomic neuropathy Is this a current diagnosis for this admission?: Yes Plan: Defer to the hospitalist service. (6) Anemia in chronic kidney disease (CKD) Is this a current diagnosis for this admission?: Yes (7) Hypervolemia Is this a current diagnosis for this admission?: Yes Plan: Continue Bumex. (8) Nausea and vomiting Is this a current diagnosis for this admission?: Yes Plan: With a history of uncontrolled diabetes mellitus there is a very high likelihood that the patient has diabetic gastroparesis. - Notes Notes: Thank you very much for allowing me to participate in the care of this patient. Discussed impression and plan with the patient and his spouse. Also discussed the case with Glen Swanson and the patient's nurse for today. - Time Time Spent: Greater than 70 Minutes
[2017-07-31] MEDS ORDERED: INSULIN GLARGINE,HUM.REC.ANLOG 300 UNIT/3 ML INSULN.PEN SUBCUT ONE
[2017-07-31] MEDS: HEPARIN SOD (PORCINE) 5,000 UNIT/ML 1 ML SYRINGE SUBCUT SCH ×2 (00:04→05:38)
[2017-07-31] MEDS: INSULIN GLARGINE,HUM.REC.ANLOG 300 UNIT/3 ML INSULN.PEN SUBCUT SCH ×2 (00:13→21:24)
[2017-07-31 03:55] LABS: 24 HR URINE CREAT RESULT 0.9 mg/day (0.8-2.0); URINE CREATININE 45.9 mg/dL (24-392)
[2017-07-31 04:02] LABS: 24 HOUR URINE PROTEIN RESULT 6213 mg/day (42-225)
[2017-07-31] MEDS: TRAMADOL HCL 50 MG TABLET PO PRN ×2 (04:36→21:28)
[2017-07-31 04:42] LABS: URINE CREATININE 45.9 mg/dL (24-392)
[2017-07-31 05:16] LABS: ABSOLUTE BASOPHILS # (AUTO) 0.1 10^3/uL (0.0-0.2); ABSOLUTE EOSINOPHILS # (AUTO) 0.5 10^3/uL (0.0-0.6); ABSOLUTE LYMPHOCYTES (AUTO) 1.8 10^3/uL (0.5-4.7); ABSOLUTE MONOCYTES (AUTO) 0.5 10^3/uL (0.1-1.4); ABSOLUTE NEUT (AUTO) 3.9 10^3/uL (1.7-8.2); BASOPHILS % (AUTO) 1.9 % (0-2); EOSINOPHILS % (AUTO) 6.7 % (0-6); HEMATOCRIT 26.8 % (37.9-51.0); LYMPHOCYTES % (AUTO) 26.9 % (13-45); MEAN CORPUSCULAR HGB CONC 35.3 g/dL (32.0-36.0); MEAN CORPUSCULAR VOLUME 79 fl (80-97); MONOCYTES % (AUTO) 7.2 % (3-13); PLATELET COUNT 248 10^3/uL (150-450); RED BLOOD COUNT 3.38 10^6/uL (4.35-5.55); RED CELL DISTRIBUTION WIDTH 13.8 % (11.5-14.0); SEGMENTED NEUTROPHILS % (AUTO) 57.3 % (42-78); TOTAL CELLS COUNTED % (AUTO) 100 %; WHITE BLOOD COUNT 6.9 10^3/uL (4.0-10.5)
[2017-07-31 05:17] LABS: INTERNATIONAL RATION (INR) 0.99; PARTIAL THROMBOPLASTIN TIME 33.1 SEC (23.5-35.8); PROTHROMBIN TIME 13.8 SEC (11.4-15.4)
[2017-07-31 05:18] LABS: HEMOGLOBIN 9.4 g/dL (13.5-17.0)
[2017-07-31 05:23] LABS: CREATININE 3.26 mg/dL (0.52-1.25)
[2017-07-31 05:59] LABS: ANION GAP 9 (5-19); BLOOD UREA NITROGEN 54 mg/dL (7-20); CALCIUM 8.9 mg/dL (8.4-10.2); CARBON DIOXIDE 25 mmol/L (22-30); CHLORIDE 106 mmol/L (98-107); GLUCOSE 102 mg/dL (75-110); SODIUM 139.6 mmol/L (137-145)
[2017-07-31] MEDS: INSULIN LISPRO 100 UNIT/ML 3 ML VIAL SUBCUT SCH ×3 (07:38→16:55)
[2017-07-31] MEDS: BUMETANIDE INJ/PF 1 MG/4 ML SDV IV SCH (09:49)
[2017-07-31] MEDS: ASPIRIN 81 MG TABLET, ENT COATED PO SCH (09:51)
[2017-07-31] MEDS: AMLODIPINE BESYLATE 5 MG TABLET PO SCH (09:51)
[2017-07-31] MEDS ORDERED: ONDANSETRON 4 MG TAB.RAPDIS PO PRN (11:01)
[2017-07-31] MEDS ORDERED: HYOSCYAMINE SULFATE 0.125 MG TABLET PO PRN (11:02)
--- NOTE | 2017-07-31 12:04 | PROGRESS NOTE E ---
Progress Note NAME: CECILIO ALCAZAR : 1980 AGE: 37Y DATE: 07/31/2017 ROOM: 415 SUBJECTIVE: The patient is currently lying in bed. The patient would hardly open his eyes to engage, stating that he was resting. The patient has had no reported episodes of vomiting nor diarrhea today. He did have some nausea last night with his dinner. The patient was seen by Dr. Freedman and has agreed to complete nephrologic workup. Blood pressures have been low for him with systolics in the 130s, and the patient does not voice any other concerns at this time. REVIEW OF SYSTEMS: Rest of the review of systems negative. MEDICATIONS: Have been reviewed. OBJECTIVE: GENERAL: The patient is a 37-year-old male who will awaken. He does not appear to be distressed. VITAL SIGNS: Temperature is 98.4, pulse 86, respirations 18, blood pressure 136/74, oxygen saturation is 98% on room air. SKIN: Warm and dry. No rash. He is not diaphoretic. HEENT: Pupils equal, round, reactive to light and accommodation. Conjunctivae are pink. There is no evidence of JVP. CARDIOVASCULAR: Heart is regular. There is no murmur or rub. CHEST: Clear, symmetrical, unlabored. ABDOMEN: Soft, nontender, nondistended. BACK: No CVA tenderness or sacral edema. EXTREMITIES: No clubbing, cyanosis, or edema. PSYCHIATRIC: Appropriate affect. Pleasant mood. DIAGNOSTICS: Lab values are as follow: Hematology obtained on 07/31/2017: WBCs are 6.9, hemoglobin is 9.4, hematocrit is 26.8, platelet count is 248,000. Chemistry obtained on 07/31/2017: Sodium is 139, potassium 4.0, chloride is 106, carbon dioxide 25, BUN 54, creatinine 3.15, glucose 102, calcium is 8.9, magnesium is 2.0. IMPRESSION AND PLAN: 1. [id number] KIDNEY DISEASE. Unable to further stage. The patient has been seen by Nephrology. Will have a kidney biopsy on Wednesday. Workup is ongoing. 2. VOLUME OVERLOAD. Workup again is ongoing. Echocardiogram is pending. Will transition to oral diuresis tomorrow since his edema has resolved. 3. HYPERTENSIVE URGENCY. Will hopefully maintain blood pressures between 150 and 160. 4. DIABETES MELLITUS, MOST LIKELY TYPE 1. Will continue the patient's home insulin. His glucose has been well controlled. DISPOSITION: The patient is a FULL CODE. Pending patient's symptomatology and diagnostic findings, we will re-evaluate in the a.m. Time spent on this followup including assessment, plan, physical examination, patient education, review of records, and specialty collaboration is 35 minutes. DICTATING PHYSICIAN: RONALD SWANSON NP [id number] PHY#: [id number] ID: [id number] JOB#: [id number] ACCT: [id number] cc: >
[2017-08-01 07:38] LABS: HEPATITS B SURFACE ANTIGEN Negative (Negative)
[2017-08-01] MEDS: INSULIN LISPRO 100 UNIT/ML 3 ML VIAL SUBCUT SCH (08:45)
[2017-08-01 08:55] LABS: HEPATITIS B CORE AB TOT Negative (Negative); HEPATITIS B SURFACE AB QUANT <3.1 mIU/mL (Immunity>9.9)
[2017-08-01] MEDS: FUROSEMIDE 20 MG TABLET PO SCH (10:41)
[2017-08-01] MEDS: METOPROLOL SUCCINATE 25 MG TAB.SR.24H PO SCH (10:42)
--- NOTE | 2017-08-01 11:15 | RADIOLOGY REPORT (SQ) ---
EXAM DESCRIPTION: HIP BILATERAL COMPLETED DATE/TIME: 08/01/2017 11:01 am REASON FOR STUDY: Pain COMPARISON: None. NUMBER OF VIEWS: Two views TECHNIQUE: AP pelvis and additional frog-leg view of both hips. LIMITATIONS: None. FINDINGS: MINERALIZATION: Normal. HIPS: No acute fracture or dislocation. No worrisome bone lesions. Mild degenerative changes with quirino int space narrowing. PELVIS AND SACRUM: No acute fracture or dislocation. No worrisome bone lesions. PUBIS AND ISCHIUM: No acute fracture. LOWER LUMBAR SPINE: No significant findings as visualized. SOFT TISSUES: No findings. OTHER: No other significant finding. IMPRESSION: Mild degenerative changes. TECHNICAL DOCUMENTATION: JOB ID: [id number] [employer]- All Rights Reserved
--- NOTE | 2017-08-01 19:24 | PROGRESS NOTE E ---
Progress Note NAME: CECILIO ALCAZAR : 1980 AGE: 37Y DATE: 08/01/2017 ROOM: 415 SUBJECTIVE: The patient is lying in bed. The patient is aware he is to have a kidney biopsy in the a.m. The patient has had no reported episodes of vomiting or diarrhea. The patient does complain of a right hip pain, which he says is bursitis. The patient has been afebrile. His blood pressures have been in the target area. Blood sugars have been a little on the low side. I did discuss decreasing basal dose of insulin and the patient does appear to be in a persistent state of irritation, and does admit to some lightheadedness. BRIEF HISTORY: The patient is a 37-year-old male with a past medical history of uncontrolled diabetes mellitus type 2, as well as hypertension. The patient presented to the emergency department, due to edema of the lower extremities. The patient has been seen on an outpatient basis by Dr. Freedman; however, he was sent out for labs, and the patient has never returned to follow up with his marine geologist. The patient was also referred to Endocrinology; however, the patient stated that the installation and repair technician could not get his blood sugars below "1000." The patient on admission was found to have a creatinine of 3.08, and current creatinine is 3.15. The patient did not appear to be intravascularly volume-depleted and actually appeared to be volume-overloaded and subsequently was diuresed. The patient did have improvement of the edema of his extremities, except for his feet. The patient claims that "Lasix does not work on me." The patient is scheduled for a kidney biopsy in the a.m. Additionally, I have discussed obtaining images of his hips, given that the patient states that he is having persistent hip pain, to ensure there is no other underlying etiology. REVIEW OF SYSTEMS: The rest of the review of systems was negative. MEDICATIONS: Reviewed. OBJECTIVE: GENERAL: The patient is a 37-year-old male, who is awake, alert. He is oriented to person, place, time, situation. Interaction does appear to be inconvenient for him. He does not appear to be distressed. VITAL SIGNS: Temperature is 98.2, pulse 84, respirations 18, blood pressure is 154/86, oxygen saturation 98% on room air. SKIN: Pale. No rash. He is not diaphoretic. HEENT: Pupils are reactive. NECK: There is no evidence of JVP. CVS: Heart is regular. No rub. CHEST: Clear, symmetrical, unlabored. ABDOMEN: Nondistended. EXTREMITIES: The patient does have nonpitting bilateral lower extremity edema; however, the edema from the knees through the thighs appears to have resolved. PSYCHIATRIC: The patient is very easily agitated. DIAGNOSTICS: Lab values are as follows: Hematology obtained on 07/31/2017: WBC 6.9, hemoglobin 9.4, hematocrit is 26.8, platelet count is 248,000. Chemistry obtained on 07/31/2017: Sodium is 136, potassium 4.0, chloride is 106, carbon dioxide 25, BUN 54, creatinine 3.15, glucose 102, calcium is 8.9, magnesium is 2.0. IMPRESSION AND PLAN: 1. ACUTE ON CHRONIC KIDNEY DISEASE, UNABLE TO FURTHER STAGE. The patient has been seen by Nephrology and will have a kidney biopsy in the a.m. Other workup is still ongoing. 2. VOLUME OVERLOAD. Again, workup is ongoing. Echocardiogram is pending. The patient has been transitioned to oral diuresis and the most significant edema has resolved. He still has some edema of his lower extremities. 3. HYPERTENSIVE URGENCY. The patient's blood pressure goal at this time is between a systolic of 150 and 160, given his chronic elevations. 4. DIABETES MELLITUS, TYPE 2, POORLY CONTROLLED. The patient's glycemic control has been excellent in the hospital, although his A1c is nearly 12. The patient's presenting glucose was 403. Actually had a low of 59. Have decreased basal dose insulin by 10 units and will only use sliding scale coverage. DISPOSITION: The patient is a FULL CODE. Pending patient's symptomatology and diagnostic findings, will reevaluate in the a.m. Time spent on this followup, including assessment, plan, physical examination, patient education, review of records is 25 minutes. DICTATING PHYSICIAN: RONALD SWANSON NP [id number] PHY#: [id number] ID: [id number] JOB#: [id number] ACCT: [id number] cc: >
[2017-08-02] MEDS: INSULIN GLARGINE,HUM.REC.ANLOG 300 UNIT/3 ML INSULN.PEN SUBCUT SCH ×2 (00:02→22:20)
[2017-08-02] MEDS: HYDRALAZINE HCL INJ/PF 20 MG/1 ML SDV IV PRN (01:16)
[2017-08-02] MEDS ORDERED: BUMETANIDE INJ/PF 1 MG/4 ML SDV IV ONE (01:18)
[2017-08-02] MEDS ORDERED: NITROGLYCERIN 2% OINTMENT 1 GM PACKET TP ONE (01:18)
[2017-08-02 07:05] LABS: ABSOLUTE BASOPHILS # (AUTO) 0.1 10^3/uL (0.0-0.2); ABSOLUTE EOSINOPHILS # (AUTO) 0.4 10^3/uL (0.0-0.6); ABSOLUTE LYMPHOCYTES (AUTO) 1.9 10^3/uL (0.5-4.7); ABSOLUTE MONOCYTES (AUTO) 0.7 10^3/uL (0.1-1.4); ABSOLUTE NEUT (AUTO) 4.1 10^3/uL (1.7-8.2); BASOPHILS % (AUTO) 1.8 % (0-2); EOSINOPHILS % (AUTO) 5.5 % (0-6); HEMATOCRIT 28.3 % (37.9-51.0); HEMOGLOBIN 9.8 g/dL (13.5-17.0); LYMPHOCYTES % (AUTO) 26.3 % (13-45); MEAN CORPUSCULAR HEMOGLOBIN 27.6 pg (27.0-33.4); MEAN CORPUSCULAR HGB CONC 34.5 g/dL (32.0-36.0); MEAN CORPUSCULAR VOLUME 80 fl (80-97); MONOCYTES % (AUTO) 9.8 % (3-13); PLATELET COUNT 261 10^3/uL (150-450); RED BLOOD COUNT 3.54 10^6/uL (4.35-5.55); SEGMENTED NEUTROPHILS % (AUTO) 56.6 % (42-78); TOTAL CELLS COUNTED % (AUTO) 100 %; WHITE BLOOD COUNT 7.2 10^3/uL (4.0-10.5)
[2017-08-02 07:26] LABS: ALANINE AMINOTRANSFERASE 28 U/L (21-72); ALBUMIN 2.4 g/dL (3.5-5.0); ALKALINE PHOSPHATASE 78 U/L (38-126); ANION GAP 7 (5-19); ASPARTATE AMINO TRANSFERASE 24 U/L (17-59); BILIRUBIN,DIRECT 0.2 mg/dL (0.0-0.4); BILIRUBIN,TOTAL 0.2 mg/dL (0.2-1.3); BLOOD UREA NITROGEN 46 mg/dL (7-20); CALCIUM 8.7 mg/dL (8.4-10.2); CARBON DIOXIDE 29 mmol/L (22-30); CHLORIDE 104 mmol/L (98-107); GLUCOSE 77 mg/dL (75-110); MAGNESIUM 1.9 mg/dL (1.6-2.3); POTASSIUM 4.5 mmol/L (3.6-5.0); SODIUM 140.2 mmol/L (137-145); TOTAL PROTEIN 4.9 g/dL (6.3-8.2)
[2017-08-02 09:37] LABS: HEPATITIS C QUANTITATION HCV Not Detected IU/mL (.)
[2017-08-02] MEDS: FUROSEMIDE 20 MG TABLET PO SCH (10:21)
[2017-08-02] MEDS: METOPROLOL SUCCINATE 25 MG TAB.SR.24H PO SCH (10:21)
[2017-08-02 11:14] LABS: GLOMERULAR BASMENT MEMBRANE AB 3 units (0-20)
--- NOTE | 2017-08-02 13:14 | XCELERA REPORT ---
[address] [address] Transthoracic Echocardiogram Report Name: CECILIO ALCAZAR JR Age: 37 yrs Gender: Male : 1980 Patient Status: Inpatient Patient Location: [address] [place] [address] Study Date: 08/02/2017 11:53 AM Height: 74 in Weight: 238 lb BSA: 2.3 m2 Procedure: A two-dimensional transthoracic echocardiogram with color flow and Doppler was performed. Study Quality: Fair. Reason For Study: chf History: CHF. Ordering Physician: MYRTLE MORALES Performed By: Sejal Cabrera Interpretation Summary The left ventricle is normal in size. There is normal left ventricular wall thickness. LV EF is 55% Left ventricular systolic function is low normal. LV diastolic function not assessed. The left ventricular wall motion is normal. There is no thrombus. The right ventricle is grossly normal size. The right ventricular apex is not well visualized. The right atrium is normal. The left atrium is mildly dilated. The interatrial septum is intact with no evidence for an atrial septal defect. There is no evidence of mitral valve prolapse. There is no vegetation seen on the mitral valve. There is no mitral valve stenosis. There is a mild amount of mitral regurgitation There is no aortic valvular vegetation. There is no aortic valve stenosis There is no LVOT obstruction. No aortic regurgitation is present. There is no tricuspid stenosis. There is a mild amount of tricuspid regurgitation There is servere pulmonary hypertension by echo RVSP is 86 to 91 mm of Hg , with RA mean of 5 to 10. The aortic root is normal size. There is no pericardial effusion. Moderate size left pleural effusion. MMode/2D Measurements & Calculations RVDd: 2.7 cm LVIDd: 5.3 cm FS: 29.6 % Ao root diam: 2.3 cm IVSd: 0.96 cm LVIDs: 3.7 cm EDV(Teich): 132.8 ml LVPWd: 0.99 cm ESV(Teich): 58.1 ml Ao root area: 4.3 cm2 EF(Teich): 56.3 % Doppler Measurements & Calculations MV E max [place]: MV dec slope: Ao V2 max: LV V1 max P.0 cm/sec 110.5 cm/sec 3.8 mmHg 607.2 cm/sec2 Ao max PG: LV V1 max: MV dec time: 4.9 mmHg 98.0 cm/sec 0.16 sec PA V2 max: TR max [place]: 92.4 cm/sec 450.0 cm/sec PA max PG: TR max P.0 mmHg 3.4 mmHg Left Ventricle The left ventricle is normal in size. There is normal left ventricular wall thickness. LV EF is 55%. Left ventricular systolic function is low normal. LV diastolic function not assessed. The left ventricular wall motion is normal. There is no thrombus. There is no ventricular septal defect visualized. Right Ventricle The right ventricle is grossly normal size. The right ventricular apex is not well visualized. Atria The right atrium is normal. The left atrium is mildly dilated. The interatrial septum is intact with no evidence for an atrial septal defect. Mitral Valve There is no evidence of mitral valve prolapse. There is no vegetation seen on the mitral valve. There is no mitral valve stenosis. There is a mild amount of mitral regurgitation. Aortic Valve There is no aortic valvular vegetation. There is no aortic valve stenosis. There is no LVOT obstruction. No aortic regurgitation is present. Tricuspid Valve There is no tricuspid stenosis. There is a mild amount of tricuspid regurgitation. There is servere pulmonary hypertension by echo. RVSP is 86 to 91 mm of Hg , with RA mean of 5 to 10. Pulmonic Valve There is no pulmonic valvular stenosis. There is no pulmonic valvular regurgitation. Great Vessels The aortic root is normal size. The inferior vena cava appeared normal and decreased > 50% with respiration (RAP 5-10 mmHg). Effusions There is no pericardial effusion. Moderate size left pleural effusion. : MYRTLE MORALES > Etelvina Sewell
[2017-08-02 14:15] LABS: VITAMIN D 25-HYDROXY 11.8 ng/mL (30.0-100.0)
[2017-08-02 16:39] LABS: ALBUMIN URINE 24HR 71.4 % (.); ALPHA-1-GLOBULIN URINE 24HR 0.7 % (.); ALPHA-2-GLOBULIN URINE 24HR 4.6 % (.); GAMMA GLOBULIN URINE 24HR 12.5 % (.); PROTEIN TOTAL UR 24HR 5713 mg/24 hr (30-150)
--- NOTE | 2017-08-02 16:47 | PDOC PROGRESS REPORT ---
Subjective Progress Note for:: 08/02/17 Subjective:: He did not feel well this morning. His blood sugar had decreased to 70 and he is used to it being in the 400-600 range. His sugar readings have been doing better today on his current insulin regiment and by watching his diet. He was NPO this morning due to renal biopsy. The renal biopsy has been postponed until tomorrow. His renal function has improved slightly since admission but for the most part has remained close to Cr of 3. Still unsure of his exact baseline. Nephrology continues to follow. His echocardiogram this morning was unremarkable with of EF 55% Reason For Visit: ACUTE HEART FAILURE HEMATURIA Physical Exam Vital Signs: Temp Pulse Resp BP Pulse Ox 98.0 F 89 20 162/91 H 95 08/02/17 12:00 08/02/17 14:00 08/02/17 12:00 08/02/17 12:00 08/02/17 12:00 Intake & Output 08/01/17 08/02/17 08/03/17 06:59 06:59 06:59 Intake Total 1450 1249 Output Total 825 Balance 1450 424 Weight 101.4 kg 95 kg General appearance: PRESENT: no acute distress, cooperative Head exam: PRESENT: normocephalic Mouth exam: PRESENT: moist Throat exam: ABSENT: tonsillogmegaly Neck exam: PRESENT: full ROM. ABSENT: carotid bruit, JVD, lymphadenopathy, thyromegaly, tracheal deviation Respiratory exam: PRESENT: clear to auscultation juan pablo. ABSENT: accessory muscle use, retraction Cardiovascular exam: PRESENT: RRR. ABSENT: gallop, rubs Pulses: PRESENT: normal carotid pulses, +1 pedal pulses bilateral Vascular exam: PRESENT: normal capillary refill GI/Abdominal exam: PRESENT: normal bowel sounds, soft. ABSENT: ascites, guarding, organolmegaly, tenderness Extremities exam: ABSENT: calf tenderness Neurological exam: PRESENT: alert, oriented to person, oriented to place, oriented to time, oriented to situation Skin exam: PRESENT: normal color. ABSENT: pallor, rash, skin tears Results Laboratory Results: 08/02/17 06:38 08/02/17 06:38 08/02/17 08/02/17 06:38 06:38 WBC 7.2 RBC 3.54 L Hgb 9.8 L Hct 28.3 L MCV 80 MCH 27.6 MCHC 34.5 RDW 14.0 Plt Count 261 Seg Neutrophils % 56.6 Lymphocytes % 26.3 Monocytes % 9.8 Eosinophils % 5.5 Basophils % 1.8 Absolute Neutrophils 4.1 Absolute Lymphocytes 1.9 Absolute Monocytes 0.7 Absolute Eosinophils 0.4 Absolute Basophils 0.1 Sodium 140.2 Potassium 4.5 Chloride 104 Carbon Dioxide 29 Anion Gap 7 BUN 46 H Creatinine 2.96 H Est GFR ( Amer) 29 L Est GFR (Non-Af Amer) 24 L Glucose 77 Calcium 8.7 Magnesium 1.9 Total Bilirubin 0.2 AST 24 ALT 28 Alkaline Phosphatase 78 Total Protein 4.9 L Albumin 2.4 L 07/30/17 07/30/17 07/30/17 02:40 02:40 08:47 Creatine Kinase 298 H 302 H CK-MB (CK-2) 11.30 H Troponin I 0.034 NT-Pro-B Natriuret Pep 07/30/17 07/30/17 07/30/17 08:47 13:55 13:55 Creatine Kinase 260 H CK-MB (CK-2) 10.00 H 8.84 H Troponin I 0.055 0.046 NT-Pro-B Natriuret Pep 07/31/17 04:38 Creatine Kinase CK-MB (CK-2) Troponin I NT-Pro-B Natriuret Pep 3150 H Impressions: Chest X-Ray 07/29/17 22:35 IMPRESSION: Mild central vascular congestion. Vascular Ultrasound 07/29/17 22:36 IMPRESSION: NO DOPPLER EVIDENCE OF HEMODYNAMICALLY SIGNIFICANT RENAL ARTERY STENOSIS. Hip X-Ray 08/01/17 00:00 IMPRESSION: Mild degenerative changes. Assessment & Plan - Diagnosis (1) Acute congestive heart failure Qualifiers: Congestive heart failure type: unspecified Qualified Code(s): I50.9 - Heart failure, unspecified Is this a current diagnosis for this admission?: Yes Plan: continue current medications. appears to be euvolemic at this point. still awaiting normal renal function for patient (2) Acute on chronic renal failure Qualifiers: Acute renal failure type: unspecified Is this a current diagnosis for this admission?: Yes Plan: awaiting renal biopsy in AM, will be NPO after midnight in anticipation of biopsy in the morning (3) Uncontrolled hypertension Is this a current diagnosis for this admission?: Yes Plan: better on current regiment. will need better compliance and home monitoring outpatient (4) Uncontrolled type 2 diabetes mellitus Qualifiers: Diabetes mellitus complication status: with neurologic complications Diabetes mellitus complication detail: with autonomic neuropathy Is this a current diagnosis for this admission?: Yes Plan: also has nephropathy secondary to uncontrolled BP and DM. Currently with better control during admission. have discussed the need for compliance with diet and medications. Supposed to be meeting with sql database administrator this afternoon - Time Time Spent with patient: 25-34 minutes Medications reviewed and adjusted accordingly: Yes Anticipated discharge: Home Within: within 48 hours
[2017-08-02] MEDS: INSULIN LISPRO 100 UNIT/ML 3 ML VIAL SUBCUT PRN (17:15)
--- NOTE | 2017-08-02 18:47 | PDOC PROGRESS REPORT ---
Subjective Progress Note for:: 08/02/17 Subjective:: Events overnight and throughout the weekend noted. Patient relates that yesterday he started being short of breath and he was given a dose of IV Bumex. He was also given Nitropaste. He claims that he does not think that the Lasix is working as good as the Bumex. He claims that her leg swelling today is worse than yesterday. He is making urine but not a lot. Unfortunately his kidney biopsy was postponed today by radiology. It is rescheduled for tomorrow morning. This morning he also had an episode of hypoglycemia relative to his usual blood sugars at home. Blood sugar went down to as low as 68 so he needed to be given D50 /50 intravenously. His blood sugars is been quite acceptable within our goal. He said when his blood sugar is too low he feels weak and he feels dizzy. Patient is requesting me to complete some paperwork for his insurance. Reason For Visit: DEBI/CKD Physical Exam Vital Signs: Temp Pulse Resp BP Pulse Ox 98.0 F 89 20 162/91 H 95 08/02/17 12:00 08/02/17 14:00 08/02/17 12:00 08/02/17 12:00 08/02/17 12:00 Intake & Output 08/01/17 08/02/17 08/03/17 06:59 06:59 06:59 Intake Total 1450 1249 0 Output Total 825 Balance 1450 424 0 Weight 101.4 kg 95 kg Exam: General appearance: PRESENT: no acute distress, cooperative, well-developed, well-nourished Head exam: PRESENT: atraumatic, normocephalic Eye exam: PRESENT: conjunctiva pink, PERRLA. ABSENT: scleral icterus Neck exam: ABSENT: JVD Respiratory exam: PRESENT: Normal breath sounds. ABSENT: crackles, rales, rhonchi, unlabored, wheezes Cardiovascular exam: PRESENT: Regular rate rhythm -+S1, +S2. ABSENT: diastolic murmur, systolic murmur GI/Abdominal exam: PRESENT: normal bowel sounds, soft. ABSENT: guarding, mass, tenderness Extremities exam: Grade 1 bilateral lower extremity pitting edema Neurological exam: PRESENT: alert, awake, oriented to person, place and time. Skin exam: PRESENT: dry, warm, Results Laboratory Results: 08/02/17 06:38 01/15/18 06:38 08/02/17 08/02/17 06:38 06:38 WBC 7.2 RBC 3.54 L Hgb 9.8 L Hct 28.3 L MCV 80 MCH 27.6 MCHC 34.5 RDW 14.0 Plt Count 261 Seg Neutrophils % 56.6 Lymphocytes % 26.3 Monocytes % 9.8 Eosinophils % 5.5 Basophils % 1.8 Absolute Neutrophils 4.1 Absolute Lymphocytes 1.9 Absolute Monocytes 0.7 Absolute Eosinophils 0.4 Absolute Basophils 0.1 Sodium 140.2 Potassium 4.5 Chloride 104 Carbon Dioxide 29 Anion Gap 7 BUN 46 H Creatinine 2.96 H Est GFR ( Amer) 29 L Est GFR (Non-Af Amer) 24 L Glucose 77 Calcium 8.7 Magnesium 1.9 Total Bilirubin 0.2 AST 24 ALT 28 Alkaline Phosphatase 78 Total Protein 4.9 L Albumin 2.4 L 07/30/17 07/30/17 07/30/17 02:40 02:40 08:47 Creatine Kinase 298 H 302 H CK-MB (CK-2) 11.30 H Troponin I 0.034 NT-Pro-B Natriuret Pep 07/30/17 07/30/17 07/30/17 08:47 13:55 13:55 Creatine Kinase 260 H CK-MB (CK-2) 10.00 H 8.84 H Troponin I 0.055 0.046 NT-Pro-B Natriuret Pep 07/31/17 04:38 Creatine Kinase CK-MB (CK-2) Troponin I NT-Pro-B Natriuret Pep 3150 H Impressions: Chest X-Ray 07/29/17 22:35 IMPRESSION: Mild central vascular congestion. Vascular Ultrasound 07/29/17 22:36 IMPRESSION: NO DOPPLER EVIDENCE OF HEMODYNAMICALLY SIGNIFICANT RENAL ARTERY STENOSIS. Hip X-Ray 08/01/17 00:00 IMPRESSION: Mild degenerative changes. Assessment & Plan - Diagnosis (1) Acute kidney injury superimposed on chronic kidney disease Is this a current diagnosis for this admission?: Yes Plan: This is most likely secondary to uncontrolled hypertension, hemodynamic factors and uncontrolled diabetes mellitus. Patient seems to have a very progressive chronic kidney disease because of the above. High likelihood that the patient has diabetic nephropathy and hypertensive nephrosclerosis however due to the presence of microhematuria with possible nephrotic range proteinuria we also need to rule out other glomerular disease. Worked up currently pending. Patient will also need a percutaneous renal biopsy with CT guidance for definitive diagnosis which can affect therapy and prognostication. This was rescheduled for tomorrow morning. At this time the patient does not need any renal replacement therapy. Continue to monitor kidney function and electrolytes. Agree with reinitiation of diuretics with Bumex. Hold off on any JOSUÉ inhibitors or ARB's. Avoid any further nephrotoxic agents including nonsteroidal anti-inflammatory agents and contrast. Adjust medications according to kidney function. At this time his kidney function seems to be stable if not slightly better which indicated that he probably does not have a rapidly progressive glomerulonephritis and we can wait for a kidney biopsy report prior to initiation of any further treatment if needed. I discussed my assessment and plan with the patient and her spouse at bedside last week. I also explained to them that the patient's kidney function seems to be deteriorating fast likely due to uncontrolled hypertension and diabetes which needs to be both controlled slowly. I also told him the possibility of patient ending up possibility on dialysis if his kidney function continues to deteriorate. I will monitor closely while here in the hospital. Some of the preliminary results of the workup included a 24-hour urine proteinuria of 6213 mg with a creatinine clearance of 19 mL/min. He has normal complement levels, normal anti-GBM, and normal hepatitis B and C panels. His vitamin D is low. We will start him in some vitamin D supplementation. All the risks of the workup are still pending. (2) Proteinuria Is this a current diagnosis for this admission?: Yes Plan: This is within nephrotic range based on a 24 hour urine showing about 6213 mg of proteinuria. (3) Microhematuria Is this a current diagnosis for this admission?: Yes (4) Uncontrolled hypertension Is this a current diagnosis for this admission?: Yes Plan: I will change his Lasix to Bumex 1 mg p.o. twice daily to start with. If blood pressure continues to be still slightly elevated we will need to increase the Toprol. (5) Uncontrolled type 2 diabetes mellitus Qualifiers: Diabetes mellitus complication status: with neurologic complications Diabetes mellitus complication detail: with autonomic neuropathy Is this a current diagnosis for this admission?: Yes Plan: Defer to the hospitalist service. (6) Anemia in chronic kidney disease (CKD) Qualifiers: Chronic kidney disease stage: stage 4 (severe) Qualified Code(s): N18.4 - Chronic kidney disease, stage 4 (severe); D63.1 - Anemia in chronic kidney disease; D63.1 - Anemia in chronic kidney disease Is this a current diagnosis for this admission?: Yes Plan: We will check iron panel. (7) Hypervolemia Is this a current diagnosis for this admission?: Yes Plan: Continue Bumex. (8) Vitamin D deficiency Is this a current diagnosis for this admission?: Yes Plan: Start vitamin D supplementation. (9) Nausea and vomiting Is this a current diagnosis for this admission?: Yes Plan: Resolved. - Notes Notes: Plan discussed with patient. Answered all questions. - Time Time with patient: Greater than 35 minutes
[2017-08-02] MEDS ORDERED: BUMETANIDE 1 MG TABLET PO ONE (20:00)
[2017-08-02 23:36] LABS: NORMETANEPHRINE 16 pg/mL (0-145)
[2017-08-03] MEDS: HYDRALAZINE HCL INJ/PF 20 MG/1 ML SDV IV PRN ×2 (00:43→21:31)
[2017-08-03 06:33] LABS: ABSOLUTE BASOPHILS # (AUTO) 0.2 10^3/uL (0.0-0.2); ABSOLUTE EOSINOPHILS # (AUTO) 0.4 10^3/uL (0.0-0.6); ABSOLUTE LYMPHOCYTES (AUTO) 1.8 10^3/uL (0.5-4.7); ABSOLUTE MONOCYTES (AUTO) 0.7 10^3/uL (0.1-1.4); ABSOLUTE NEUT (AUTO) 4.6 10^3/uL (1.7-8.2); ABSOLUTE RETICS # 0.064 10^6/uL (0.028-0.122); BASOPHILS % (AUTO) 2.1 % (0-2); EOSINOPHILS % (AUTO) 5.2 % (0-6); HEMATOCRIT 28.4 % (37.9-51.0); HEMOGLOBIN 9.7 g/dL (13.5-17.0); LYMPHOCYTES % (AUTO) 23.9 % (13-45); MEAN CORPUSCULAR HEMOGLOBIN 27.5 pg (27.0-33.4); MEAN CORPUSCULAR HGB CONC 34.3 g/dL (32.0-36.0); MEAN CORPUSCULAR VOLUME 80 fl (80-97); MONOCYTES % (AUTO) 8.7 % (3-13); PLATELET COUNT 257 10^3/uL (150-450); RED BLOOD COUNT 3.54 10^6/uL (4.35-5.55); RED CELL DISTRIBUTION WIDTH 13.9 % (11.5-14.0); RETICULOCYTE COUNT (AUTO) 1.81 % (0.66-2.85); SEGMENTED NEUTROPHILS % (AUTO) 60.1 % (42-78); TOTAL CELLS COUNTED % (AUTO) 100 %; WHITE BLOOD COUNT 7.7 10^3/uL (4.0-10.5)
[2017-08-03 07:00] LABS: ANION GAP 6 (5-19); BLOOD UREA NITROGEN 45 mg/dL (7-20); CALCIUM 8.7 mg/dL (8.4-10.2); CARBON DIOXIDE 31 mmol/L (22-30); CHLORIDE 103 mmol/L (98-107); GLUCOSE 200 mg/dL (75-110); IRON(TIBC) 20.6 ug/dL (49-181); POTASSIUM 4.8 mmol/L (3.6-5.0)
[2017-08-03 07:23] LABS: METANEPHRINE <10 pg/mL (0-62); PROTEIN TOTAL URINE 300.7 mg/dL (Not Estab.)
[2017-08-03] MEDS ORDERED: MIDAZOLAM 2 MG/2 ML INJ ONE (09:02)
[2017-08-03] MEDS ORDERED: FENTANYL CITRATE INJ/PF 100 MCG/2 ML AMPUL ONE (09:02)
[2017-08-03 11:40] LABS: A/G RATIO. 0.9 (0.7-1.7); ALBUMIN 3 2.4 g/dL (2.9-4.4); ALPHA-1-GLOBULIN 0.2 g/dL (0.0-0.4); BETA GLOBULIN 0.9 g/dL (0.7-1.3); GAMMA GLOBULINS 0.8 g/dL (0.4-1.8); IMMUNOGLOBULIN A 353 mg/dL (90-386); IMMUNOGLOBULIN G 885 mg/dL (700-1600); IMMUNOGLOBULIN M 90 mg/dL (20-172); MONOCLONAL-SPIKE Not Observed g/dL (Not Observed); PROTEIN TOTAL SERUM 5.1 g/dL (6.0-8.5)
--- NOTE | 2017-08-03 11:53 | RADIOLOGY REPORT (SQ) ---
EXAM DESCRIPTION: CT BIOPSY RENAL; CT NEEDLE PLACEMENT COMPLETED DATE/TIME: 08/03/2017 9:48 am; 08/03/2017 9:47 am REASON FOR STUDY: DEBI/CKD, Proteinuria,hematuria; RENAL BIOPSY COMPARISON: None. RADIATION DOSE: CT Rad equipment meets quality standard of care and radiation dose reduction techniq ues were employed. CTDIvol: 4.0 - 20.3 mGy. DLP: 569 mGy-cm. mGy. LIMITATIONS: None. PROCEDURE: Procedure was discussed with the patient and the patient agreed to the procedure. Preliminary CT scanning to localize the biopsy site was performed. A site was marked on the left low er pole kidney and time out was performed. Procedure was performed using CT fluoroscopy. Total expos ure time: 4.8 s. IV sedation was administered and physician direction by the registered nurse using 1.5 milligrams of Versed and 75 micrograms of fentanyl. Physiologic monitoring was provided before, during, and after s edation. The total sedation time was 38 minutes. Documentation face to face time, the performing proceduralist, spent monitoring the patient: 1 8minut es. After sterile skin prep with ChloraPrep, local lidocaine for skin and deep tissue anesthesia, the lef t lower pole kidney was localized. A coaxial 18 gauge needle was used to obtain 6 cores of tissue fro m the left lower pole kidney. The biopsy tract was embolized with Gelfoam. All CT scanners at this facility use dose modulation, iterative reconstruction, and/or weight based d osing when appropriate to reduce radiation dose to as low as reasonably achievable (ALARA). [facility]: Dose Right [facility]: CareDose [facility]: Dose Right [facility]: Teradose 4D [facility]: Meetmeals FINDINGS: There were no immediate complications. Specimen was carried to cytology on sterile saline gauze and submitted to the ux visual designer for processing. Pathology is pending at the time of dict ation. IMPRESSION: CT GUIDED LEFT KIDNEY CORTICAL BIOPSY. COMMENT: Patient medication list reviewed:Yes- Quality ID# [id number]:Eligible professional attests to docu menting in the medical record they obtained, updated, or reviewed the patient's current medications.. TECHNICAL DOCUMENTATION: JOB ID: [id number] Quality ID #[id number]: Final reports for procedures using fluoroscopy that document radiation exposure erum emiliano, or exposure time and number of fluorographic images (if radiation exposure indices are not avail able) Quality ID # [id number]: Final reports with documentation of one or more dose reduction techniques (e.g., Au tomated exposure control, adjustment of the mA and/or kV according to patient size, use of iterative reconstruction technique) 2010 [employer]- All Rights Reserved
--- NOTE | 2017-08-03 11:53 | RADIOLOGY REPORT (SQ) ---
EXAM DESCRIPTION: CT BIOPSY RENAL; CT NEEDLE PLACEMENT COMPLETED DATE/TIME: 08/03/2017 9:48 am; 08/03/2017 9:47 am REASON FOR STUDY: DEBI/CKD, Proteinuria,hematuria; RENAL BIOPSY COMPARISON: None. RADIATION DOSE: CT Rad equipment meets quality standard of care and radiation dose reduction techniq ues were employed. CTDIvol: 4.0 - 20.3 mGy. DLP: 569 mGy-cm. mGy. LIMITATIONS: None. PROCEDURE: Procedure was discussed with the patient and the patient agreed to the procedure. Preliminary CT scanning to localize the biopsy site was performed. A site was marked on the left low er pole kidney and time out was performed. Procedure was performed using CT fluoroscopy. Total expos ure time: 4.8 s. IV sedation was administered and physician direction by the registered nurse using 1.5 milligrams of Versed and 75 micrograms of fentanyl. Physiologic monitoring was provided before, during, and after s edation. The total sedation time was 38 minutes. Documentation face to face time, the performing proceduralist, spent monitoring the patient: 1 8minut es. After sterile skin prep with ChloraPrep, local lidocaine for skin and deep tissue anesthesia, the lef t lower pole kidney was localized. A coaxial 18 gauge needle was used to obtain 6 cores of tissue fro m the left lower pole kidney. The biopsy tract was embolized with Gelfoam. All CT scanners at this facility use dose modulation, iterative reconstruction, and/or weight based d osing when appropriate to reduce radiation dose to as low as reasonably achievable (ALARA). [facility]: Dose Right [facility]: CareDose [facility]: Dose Right [facility]: Teradose 4D [facility]: VetDC FINDINGS: There were no immediate complications. Specimen was carried to cytology on sterile saline gauze and submitted to the electric motor winder for processing. Pathology is pending at the time of dict ation. IMPRESSION: CT GUIDED LEFT KIDNEY CORTICAL BIOPSY. COMMENT: Patient medication list reviewed:Yes- Quality ID# [id number]:Eligible professional attests to docu menting in the medical record they obtained, updated, or reviewed the patient's current medications.. TECHNICAL DOCUMENTATION: JOB ID: [id number] Quality ID #[id number]: Final reports for procedures using fluoroscopy that document radiation exposure erum emiliano, or exposure time and number of fluorographic images (if radiation exposure indices are not avail able) Quality ID # [id number]: Final reports with documentation of one or more dose reduction techniques (e.g., Au tomated exposure control, adjustment of the mA and/or kV according to patient size, use of iterative reconstruction technique) 2010 [employer]- All Rights Reserved
[2017-08-03 14:39] LABS: EPINEPHRINE 34 pg/mL (0-62); NOREPINEPHRINE 241 pg/mL (0-874)
[2017-08-03 15:04] LABS: DOPAMINE <30 pg/mL (0-48)
[2017-08-03] MEDS: BUMETANIDE 1 MG TABLET PO SCH ×2 (15:18→18:35)
[2017-08-03] MEDS: INSULIN LISPRO 100 UNIT/ML 3 ML VIAL SUBCUT PRN ×2 (15:19→18:31)
[2017-08-03] MEDS: METOPROLOL SUCCINATE 25 MG TAB.SR.24H PO SCH (15:19)
[2017-08-03] MEDS: TRAMADOL HCL 50 MG TABLET PO PRN (16:13)
--- NOTE | 2017-08-03 16:49 | PDOC PROGRESS REPORT ---
Subjective Progress Note for:: 08/03/17 Subjective:: Patient underwent a successful CT-guided percutaneous kidney biopsy today by the interventional radiologist. It was uneventful. Patient just complains of some soreness on his back. He did not have any initial microhematuria when he went to the bathroom. He complains of his hip pain other than that he does not have any other complaints. His blood pressure seems to be at target goal, however he still required a dose of hydralazine steel manager today. Blood sugar seems to be acceptable as well. Reason For Visit: DEBI/CKD Physical Exam Vital Signs: Temp Pulse Resp BP Pulse Ox 98.2 F 95 14 162/85 H 97 08/03/17 15:33 08/03/17 15:33 08/03/17 15:33 08/03/17 15:33 08/03/17 15:33 Intake & Output 08/02/17 08/03/17 08/04/17 06:59 06:59 06:59 Intake Total 1249 985 Output Total 825 Balance 424 985 Weight 95 kg 97.6 kg Exam: General appearance: PRESENT: no acute distress, cooperative, well-developed, well-nourished Head exam: PRESENT: atraumatic, normocephalic Eye exam: PRESENT: conjunctiva pale, PERRLA. ABSENT: scleral icterus Neck exam: ABSENT: JVD Respiratory exam: PRESENT: Normal breath sounds. ABSENT: crackles, rales, rhonchi, unlabored, wheezes Cardiovascular exam: PRESENT: Regular rate rhythm -+S1, +S2. ABSENT: diastolic murmur, systolic murmur GI/Abdominal exam: PRESENT: normal bowel sounds, soft. ABSENT: guarding, mass, tenderness Extremities exam: Grade 1 bilateral lower extremity pitting edema, seems slightly better today. Neurological exam: PRESENT: alert, awake, oriented to person, place and time. Skin exam: PRESENT: dry, warm, Results Laboratory Results: 08/03/17 05:30 08/03/17 05:30 07/30/17 07/30/17 08/03/17 16:10 16:10 05:30 WBC 7.7 RBC 3.54 L Hgb 9.7 L Hct 28.4 L MCV 80 MCH 27.5 MCHC 34.3 RDW 13.9 Plt Count 257 Seg Neutrophils % 60.1 Lymphocytes % 23.9 Monocytes % 8.7 Eosinophils % 5.2 Basophils % 2.1 H Absolute Neutrophils 4.6 Absolute Lymphocytes 1.8 Absolute Monocytes 0.7 Absolute Eosinophils 0.4 Absolute Basophils 0.2 Retic Count (auto) 1.81 Absolute Retic 0.064 Sodium Potassium Chloride Carbon Dioxide Anion Gap BUN Creatinine Est GFR ( Amer) Est GFR (Non-Af Amer) Glucose Calcium Iron TIBC % Saturation Ferritin Total Protein 5.1 L Albumin 2.4 L Vitamin B12 Folate Ur Albumin 24 Hour 71.4 Ur Total Protein 24 Hr 5713 H U PEP M-Nakul % 24 Hr Not Observed U PEP M-Nakul 24 Hr TNP 08/03/17 05:30 WBC RBC Hgb Hct MCV MCH MCHC RDW Plt Count Seg Neutrophils % Lymphocytes % Monocytes % Eosinophils % Basophils % Absolute Neutrophils Absolute Lymphocytes Absolute Monocytes Absolute Eosinophils Absolute Basophils Retic Count (auto) Absolute Retic Sodium 140.0 Potassium 4.8 Chloride 103 Carbon Dioxide 31 H Anion Gap 6 BUN 45 H Creatinine 3.15 H Est GFR ( Amer) 27 L Est GFR (Non-Af Amer) 22 L Glucose 200 H Calcium 8.7 Iron 20.6 L TIBC 241 L % Saturation 9 Ferritin 270.00 Total Protein Albumin Vitamin B12 365.0 Folate 9.90 Ur Albumin 24 Hour Ur Total Protein 24 Hr U PEP M-Nakul % 24 Hr U PEP M-Nakul 24 Hr 07/30/17 07/30/17 07/30/17 02:40 02:40 08:47 Creatine Kinase 298 H 302 H CK-MB (CK-2) 11.30 H Troponin I 0.034 NT-Pro-B Natriuret Pep 07/30/17 07/30/17 07/30/17 08:47 13:55 13:55 Creatine Kinase 260 H CK-MB (CK-2) 10.00 H 8.84 H Troponin I 0.055 0.046 NT-Pro-B Natriuret Pep 07/31/17 04:38 Creatine Kinase CK-MB (CK-2) Troponin I NT-Pro-B Natriuret Pep 3150 H Impressions: Chest X-Ray 07/29/17 22:35 IMPRESSION: Mild central vascular congestion. Vascular Ultrasound 07/29/17 22:36 IMPRESSION: NO DOPPLER EVIDENCE OF HEMODYNAMICALLY SIGNIFICANT RENAL ARTERY STENOSIS. Hip X-Ray 08/01/17 00:00 IMPRESSION: Mild degenerative changes. Guidance Needle Placement CT 08/03/17 00:00 IMPRESSION: CT GUIDED LEFT KIDNEY CORTICAL BIOPSY. Renal Biopsy CT 08/03/17 07:00 IMPRESSION: CT GUIDED LEFT KIDNEY CORTICAL BIOPSY. Assessment & Plan - Diagnosis (1) Acute kidney injury superimposed on chronic kidney disease Is this a current diagnosis for this admission?: Yes Plan: This is most likely secondary to uncontrolled hypertension, hemodynamic factors and uncontrolled diabetes mellitus. Patient seems to have a very progressive chronic kidney disease because of the above. High likelihood that the patient has diabetic nephropathy and hypertensive nephrosclerosis however due to the presence of microhematuria with nephrotic range proteinuria we also need to rule out other glomerular disease. Work-up currently pending. Patient underwent a percutaneous renal biopsy with CT guidance for definitive diagnosis which can affect therapy and prognostication. At this time the patient does not need any renal replacement therapy. Continue to monitor kidney function and electrolytes. Agree with reinitiation of diuretics with Bumex. Hold off on any JOSUÉ inhibitors or ARB's. Avoid any further nephrotoxic agents including nonsteroidal anti-inflammatory agents and contrast. Adjust medications according to kidney function. At this time his kidney function seems to be stable if not slightly better which indicated that he probably does not have a rapidly progressive glomerulonephritis and we can wait for a kidney biopsy report prior to initiation of any further treatment if needed. I discussed my assessment and plan with the patient and her spouse at bedside last week. I also explained to them that the patient's kidney function seems to be deteriorating fast likely due to uncontrolled hypertension and diabetes which needs to be both controlled slowly. I also told him the possibility of patient ending up possibility on dialysis if his kidney function continues to deteriorate. Some of the preliminary results of the workup included a 24-hour urine proteinuria of 6213 mg with a creatinine clearance of 19 mL/min. He has normal complement levels, normal anti-GBM, and normal hepatitis B and C panels. His vitamin D is low. We will start him in some vitamin D supplementation. His serum protein electrophoresis, urine protein electrophoresis and immune electrophoresis all came out to be negative for any monoclonal spike. All the rest of the workup are still pending. I think patient is almost at his baseline kidney function at this point. So basically he does have chronic kidney disease stage IV. Since the patient is stable he does not need to wait for the kidney biopsy results which can take about a week. I think he can go home tomorrow provided that he continues to be stable like today. I will need to see him in my office in about a week, sometime later next week to discuss the biopsy and further treatment. (2) Proteinuria Is this a current diagnosis for this admission?: Yes Plan: This is within nephrotic range based on a 24 hour urine showing about 6213 mg of proteinuria. (3) Microhematuria Is this a current diagnosis for this admission?: Yes (4) Uncontrolled hypertension Is this a current diagnosis for this admission?: Yes Plan: I will change his Lasix to Bumex 1 mg p.o. twice daily to start with. Increase Toprol to 50 mg daily starting tomorrow. Patient needs to be discharged with the same medications as he is receiving here in the hospital. (5) Uncontrolled type 2 diabetes mellitus Is this a current diagnosis for this admission?: Yes Plan: Defer to the hospitalist service. (6) Anemia in chronic kidney disease (CKD) Qualifiers: Qualified Code(s): N18.4 - Chronic kidney disease, stage 4 (severe); D63.1 - Anemia in chronic kidney disease; D63.1 - Anemia in chronic kidney disease Is this a current diagnosis for this admission?: Yes Plan: Patient has low iron and transferrin saturation. I will give him a dose of IV Feraheme 1 dose today prior to discharge. He needs to continue taking oral ferrous sulfate upon discharge. (7) Hypervolemia Is this a current diagnosis for this admission?: Yes Plan: Continue Bumex. Improved. (8) Vitamin D deficiency Is this a current diagnosis for this admission?: Yes Plan: Start vitamin D supplementation. - Notes Notes: From nephrology standpoint patient can be discharged home tomorrow if he remains to be stable. Follow-up with me later next week. - Time Time with patient: 15-25 minutes
--- NOTE | 2017-08-03 16:54 | PDOC PROGRESS REPORT ---
Subjective Progress Note for:: 08/03/17 Subjective:: The patient is seen on morning rounds following his guided kidney biopsy and remains quite tired. He does wake for a brief period of time to ask about the plans for discharge. He tells me that he was under the impression that he would remain in patient until his biopsy results came back. I informed him that I spoke with Dr. Freedman this morning who felt that he could comfortably be discharged in the morning after a day of observation following his procedure. The patient states that he would be comfortable with this along as the discharge could be arranged around his 's work schedule. He does complain of a slight headache and hip pain. He states that he is already spoken to his nurse about pain medications and that she should be bringing some shortly. He states that the headache is typical for him. He has no other questions or concerns at this time. Reason For Visit: ACUTE HEART FAILURE HEMATURIA Physical Exam Vital Signs: Temp Pulse Resp BP Pulse Ox 98.2 F 95 14 162/85 H 97 08/03/17 15:33 08/03/17 15:33 08/03/17 15:33 08/03/17 15:33 08/03/17 15:33 Intake & Output 08/02/17 08/03/17 08/04/17 06:59 06:59 06:59 Intake Total 1249 985 Output Total 825 Balance 424 985 Weight 95 kg 97.6 kg General appearance: PRESENT: no acute distress, well-developed, well-nourished Head exam: PRESENT: atraumatic, normocephalic Eye exam: PRESENT: conjunctiva pink, EOMI, PERRLA. ABSENT: scleral icterus Ear exam: PRESENT: normal external ear exam Mouth exam: PRESENT: moist, tongue midline Neck exam: ABSENT: carotid bruit, JVD, lymphadenopathy, thyromegaly Respiratory exam: PRESENT: clear to auscultation juan pablo, symmetrical, unlabored. ABSENT: rales, rhonchi, wheezes Cardiovascular exam: PRESENT: RRR, +S1, +S2. ABSENT: diastolic murmur, rubs, systolic murmur Pulses: PRESENT: normal dorsalis pedis pul Vascular exam: PRESENT: normal capillary refill GI/Abdominal exam: PRESENT: normal bowel sounds, soft. ABSENT: distended, guarding, mass, organolmegaly, rebound, tenderness Rectal exam: PRESENT: deferred Extremities exam: PRESENT: full ROM. ABSENT: calf tenderness, clubbing, pedal edema Neurological exam: PRESENT: alert, awake, oriented to person, oriented to place , oriented to time, oriented to situation, CN II-XII grossly intact. ABSENT: motor sensory deficit Psychiatric exam: PRESENT: appropriate affect, normal mood. ABSENT: homicidal ideation, suicidal ideation Skin exam: PRESENT: dry, intact, warm. ABSENT: cyanosis, rash Results Laboratory Results: 08/03/17 05:30 08/03/17 05:30 07/30/17 07/30/17 08/03/17 16:10 16:10 05:30 WBC 7.7 RBC 3.54 L Hgb 9.7 L Hct 28.4 L MCV 80 MCH 27.5 MCHC 34.3 RDW 13.9 Plt Count 257 Seg Neutrophils % 60.1 Lymphocytes % 23.9 Monocytes % 8.7 Eosinophils % 5.2 Basophils % 2.1 H Absolute Neutrophils 4.6 Absolute Lymphocytes 1.8 Absolute Monocytes 0.7 Absolute Eosinophils 0.4 Absolute Basophils 0.2 Retic Count (auto) 1.81 Absolute Retic 0.064 Sodium Potassium Chloride Carbon Dioxide Anion Gap BUN Creatinine Est GFR ( Amer) Est GFR (Non-Af Amer) Glucose Calcium Iron TIBC % Saturation Ferritin Total Protein 5.1 L Albumin 2.4 L Vitamin B12 Folate Ur Albumin 24 Hour 71.4 Ur Total Protein 24 Hr 5713 H U PEP M-Nakul % 24 Hr Not Observed U PEP M-Nakul 24 Hr TNP 08/03/17 05:30 WBC RBC Hgb Hct MCV MCH MCHC RDW Plt Count Seg Neutrophils % Lymphocytes % Monocytes % Eosinophils % Basophils % Absolute Neutrophils Absolute Lymphocytes Absolute Monocytes Absolute Eosinophils Absolute Basophils Retic Count (auto) Absolute Retic Sodium 140.0 Potassium 4.8 Chloride 103 Carbon Dioxide 31 H Anion Gap 6 BUN 45 H Creatinine 3.15 H Est GFR ( Amer) 27 L Est GFR (Non-Af Amer) 22 L Glucose 200 H Calcium 8.7 Iron 20.6 L TIBC 241 L % Saturation 9 Ferritin 270.00 Total Protein Albumin Vitamin B12 365.0 Folate 9.90 Ur Albumin 24 Hour Ur Total Protein 24 Hr U PEP M-Nakul % 24 Hr U PEP M-Nakul 24 Hr 07/30/17 07/30/17 07/30/17 02:40 02:40 08:47 Creatine Kinase 298 H 302 H CK-MB (CK-2) 11.30 H Troponin I 0.034 NT-Pro-B Natriuret Pep 07/30/17 07/30/17 07/30/17 08:47 13:55 13:55 Creatine Kinase 260 H CK-MB (CK-2) 10.00 H 8.84 H Troponin I 0.055 0.046 NT-Pro-B Natriuret Pep 07/31/17 04:38 Creatine Kinase CK-MB (CK-2) Troponin I NT-Pro-B Natriuret Pep 3150 H Impressions: Chest X-Ray 07/29/17 22:35 IMPRESSION: Mild central vascular congestion. Vascular Ultrasound 07/29/17 22:36 IMPRESSION: NO DOPPLER EVIDENCE OF HEMODYNAMICALLY SIGNIFICANT RENAL ARTERY STENOSIS. Hip X-Ray 08/01/17 00:00 IMPRESSION: Mild degenerative changes. Guidance Needle Placement CT 08/03/17 00:00 IMPRESSION: CT GUIDED LEFT KIDNEY CORTICAL BIOPSY. Renal Biopsy CT 08/03/17 07:00 IMPRESSION: CT GUIDED LEFT KIDNEY CORTICAL BIOPSY. Assessment & Plan - Diagnosis (1) Acute congestive heart failure Qualifiers: Congestive heart failure type: unspecified Qualified Code(s): I50.9 - Heart failure, unspecified Is this a current diagnosis for this admission?: Yes Plan: Resolved. The patient initially presented with acute CHF exacerbation and fluid volume overload. He appears to be euvolemic at this time. Echocardiogram was obtained and demonstrated LVEF of 55%. Systolic function was borderline normal and diastolic function was not assessed. We will continue metoprolol 50 mg daily, Bumex 1 mg twice daily, and daily aspirin. (2) Acute on chronic renal failure Qualifiers: Acute renal failure type: unspecified Is this a current diagnosis for this admission?: Yes Plan: Acutely worsened renal function. Creatinine is currently 3.15 which is up from 1.54 as of March 2017. Likely secondary to uncontrolled hypertension, uncontrolled diabetes mellitus, and acute CHF exacerbation. Nephrology has been consulted; appreciate their evaluation and recommendations. We will avoid nephrotoxic medications; including JOSUÉ/ARB. Kidney biopsy was competed this morning. (3) Uncontrolled hypertension Is this a current diagnosis for this admission?: Yes Plan: Improved; however, blood pressures do remain elevated at 155/81. This is improved from blood pressures of 187/100s earlier on during this admission. We will continue metoprolol 50 mg daily and Bumex 1 mg twice daily. He does have hydralazine 10 mg every 4 hours available as needed. He will continue to require further blood pressure medication adjustments as an outpatient. (4) Uncontrolled type 2 diabetes mellitus Qualifiers: Diabetes mellitus complication status: with neurologic complications Diabetes mellitus complication detail: with autonomic neuropathy Is this a current diagnosis for this admission?: Yes Plan: The patient's A1c is noted to be 11.7%. His blood glucose has been relatively well-controlled with a range of 59 to 221 over the last 72 hours. Is to continue on a consistent carb diet. Will ask the health educator and registered dietitian to meet with the patient as time allows. He is provided Lantus 30 units subcutaneous nightly with Humalog for sliding scale coverage. - Time Time Spent with patient: 25-34 minutes Medications reviewed and adjusted accordingly: Yes Anticipated discharge: Home
[2017-08-03] MEDS ORDERED: FERUMOXYTOL 510 MG in NORMAL SALINE 100 ML IV ONE (17:30)
[2017-08-03 17:37] LABS: ANTIMYELOPEROXIDASE (MPO) AB <9.0 U/mL (0.0-9.0); ANTIPROTEINASE 3 (PR-3) AB <3.5 U/mL (0.0-3.5); CYTOPLASMIC (C-ANCA) <1:20 titer (Neg:<1:20)
[2017-08-03] MEDS ORDERED: ERGOCALCIFEROL (VITAMIN D2) 50000 UNIT (1.25 MG) CAPSULE PO SCH (18:48)
[2017-08-03] MEDS: INSULIN GLARGINE,HUM.REC.ANLOG 300 UNIT/3 ML INSULN.PEN SUBCUT SCH (21:34)
[2017-08-04 07:38] LABS: ATYPICAL PANCA <1:20 titer (Neg:<1:20); PERINUCLEAR (P-ANCA) <1:20 titer (Neg:<1:20)
[2017-08-04] MEDS: BUMETANIDE 1 MG TABLET PO SCH (09:46)
[2017-08-04] MEDS ORDERED: METOPROLOL SUCCINATE 50 MG TAB.SR.24H PO SCH (10:00)
[2017-08-04] MEDS ORDERED: FERROUS SULFATE 325 MG TABLET PO SCH (10:00)
[2017-08-04] MEDS: TRAMADOL HCL 50 MG TABLET PO PRN (11:48)
[2017-08-04 12:32] VITALS: BP 172/96
--- NOTE | 2017-08-04 12:42 | PDOC DISCHARGE SUMMARY ---
General - Admit/Disc Date/PCP Admission Date/Primary Care Provider: 07/30/17 00:38 HUGO RYDER MD Discharge Date: 08/04/17 - Discharge Diagnosis (1) Acute congestive heart failure Is this a current diagnosis for this admission?: Yes (2) Acute on chronic renal failure Is this a current diagnosis for this admission?: Yes (3) Uncontrolled hypertension Is this a current diagnosis for this admission?: Yes (4) Uncontrolled type 2 diabetes mellitus Is this a current diagnosis for this admission?: Yes - Additional Information Resuscitation Status: Full Code Discharge Diet: Cardiac, Diabetic, Other (Comments) Discharge Activity: Activity As Tolerated, Balance Activity w/Rest, Weigh Daily Prescriptions: Aspirin [Ecotrin 81 mg EC Tablet] 162 mg PO DAILY #90 tabec Bumetanide [Bumex 1 mg Tablet] 1 mg PO BID #60 tablet Insulin Glargine,Hum.rec.anlog [Lantus Insulin 100 Unit/mL] 30 unit SUBCUT QHS # 3 insuln.pen Insulin Lispro [Humalog Insulin (Lispro) 100 unit/mL] 0 - 12 unit SUBCUT ACHSP PRN #100 unit PRN Reason: Syring-Needl,Disp,Insul,0.3 ml [Insulin Syringe 0.3 mL] 1 syr MC QIDP PRN #100 syringe PRN Reason: per sliding scale insulin Tramadol HCl [Ultram 50 mg Tablet] 50 mg PO Q8HP PRN #12 tablet PRN Reason: Home Medications: Hyoscyamine Sulfate [Levsin 0.125 Tablet] 0.125 mg PO Q4HP PRN 07/30/17 Metoprolol Succinate [Toprol Xl 25 mg Tab.sr] 25 mg PO DAILY 07/30/17 Ondansetron HCl [Zofran 8 mg Tablet] 8 mg PO Q8 07/30/17 Aspirin [Ecotrin 81 mg EC Tablet] 162 mg PO DAILY #90 tabec 08/04/17 Bumetanide [Bumex 1 mg Tablet] 1 mg PO BID #60 tablet 08/04/17 Insulin Glargine,Hum.rec.anlog [Lantus Insulin 100 Unit/mL] 30 unit SUBCUT QHS # 3 insuln.pen 08/04/17 Insulin Lispro [Humalog Insulin (Lispro) 100 unit/mL] 0 - 12 unit SUBCUT ACHSP PRN #100 unit 08/04/17 Syring-Needl,Disp,Insul,0.3 ml [Insulin Syringe 0.3 mL] 1 syr MC QIDP PRN #100 syringe 08/04/17 Tramadol HCl [Ultram 50 mg Tablet] 50 mg PO Q8HP PRN #12 tablet 08/04/17 History of Present Illness History of Present Illness: CECILIO ALCAZAR JR is a 37 year old male with a past medical history of hypertension, chronic kidney disease, poorly controlled diabetes mellitus who presents to the emergency department with acute renal failure. Patient was reported to be instructed to come to the emergency department by his grocery team member. He was found to have blood pressure of 210/120. He reports he has been seeing endocrinology for his blood glucose and that this has been improving although normally has blood sugars are in the 900-1000 range. He reports swelling in his lower extremities up to his thighs that has been worsening. He reports dyspnea on exertion as well as orthopnea. He has symptoms at rest. He is referred to the hospitalist service for acute on chronic renal failure, poorly controlled diabetes mellitus, and acute congestive heart failure. Hospital Course Hospital Course: The patient was managed with IV furosemide that was transitioned to p.o. Bumex with adequate response. An echocardiogram was obtained demonstrating LVEF is 55 % with low normal ventricular systolic function. His blood pressures were adequately maintained with metoprolol, bumex and as needed hydralazine. Blood glucose control was obtained with Lantus and sliding scale Humalog. Blood glucose over the last 24 hours has ranged from 124-212. Nephrology services were consulted. A renal ultrasound was obtained without Doppler evidence of hemodynamically significant renal artery stenosis. A follow -up renal biopsy was obtained on 08/03/17. His overall kidney function remains unimproved with a eGFR or 22. The patient is instructed to follow up with nephrology next week to review biopsy results. He is to follow-up with his grocery team member as scheduled and to follow-up with his primary care provider within 1-2 weeks. On day of discharge, the patient is stable and with adequate pain control. Physical Exam Vital Signs: Temp Pulse Resp BP Pulse Ox 98.7 F 80 18 153/92 H 95 08/04/17 07:20 08/04/17 07:20 08/04/17 07:20 08/04/17 07:20 08/04/17 07:20 Intake & Output 08/03/17 08/04/17 08/05/17 06:59 06:59 06:59 Intake Total 985 433 Balance 985 433 Weight 97.6 kg 93.5 kg General appearance: PRESENT: no acute distress, well-developed, well-nourished, other - overweight Head exam: PRESENT: atraumatic, normocephalic Eye exam: PRESENT: conjunctiva pink, EOMI, PERRLA. ABSENT: scleral icterus Ear exam: PRESENT: normal external ear exam Mouth exam: PRESENT: moist, tongue midline Neck exam: ABSENT: carotid bruit, JVD, lymphadenopathy, thyromegaly Respiratory exam: PRESENT: clear to auscultation juan pablo, symmetrical, unlabored. ABSENT: rales, rhonchi, wheezes Cardiovascular exam: PRESENT: RRR, +S1, +S2. ABSENT: diastolic murmur, rubs, systolic murmur Pulses: PRESENT: normal dorsalis pedis pul Vascular exam: PRESENT: normal capillary refill GI/Abdominal exam: PRESENT: normal bowel sounds, soft. ABSENT: distended, guarding, mass, organolmegaly, rebound, tenderness Rectal exam: PRESENT: deferred Extremities exam: PRESENT: full ROM. ABSENT: calf tenderness, clubbing, pedal edema Neurological exam: PRESENT: alert, awake, oriented to person, oriented to place , oriented to time, oriented to situation, CN II-XII grossly intact. ABSENT: motor sensory deficit Psychiatric exam: PRESENT: appropriate affect, normal mood. ABSENT: homicidal ideation, suicidal ideation Skin exam: PRESENT: dry, intact, warm. ABSENT: cyanosis, rash Results Laboratory Results: 08/03/17 05:30 08/03/17 05:30 07/30/17 08/03/17 16:10 05:30 Transferrin 168 L Total Protein 5.1 L Albumin 2.4 L 07/30/17 07/30/17 07/30/17 02:40 02:40 08:47 Creatine Kinase 298 H 302 H CK-MB (CK-2) 11.30 H Troponin I 0.034 NT-Pro-B Natriuret Pep 07/30/17 07/30/17 07/30/17 08:47 13:55 13:55 Creatine Kinase 260 H CK-MB (CK-2) 10.00 H 8.84 H Troponin I 0.055 0.046 NT-Pro-B Natriuret Pep 07/31/17 04:38 Creatine Kinase CK-MB (CK-2) Troponin I NT-Pro-B Natriuret Pep 3150 H Impressions: Chest X-Ray 07/29/17 22:35 IMPRESSION: Mild central vascular congestion. Vascular Ultrasound 07/29/17 22:36 IMPRESSION: NO DOPPLER EVIDENCE OF HEMODYNAMICALLY SIGNIFICANT RENAL ARTERY STENOSIS. Hip X-Ray 08/01/17 00:00 IMPRESSION: Mild degenerative changes. Guidance Needle Placement CT 08/03/17 00:00 IMPRESSION: CT GUIDED LEFT KIDNEY CORTICAL BIOPSY. Renal Biopsy CT 08/03/17 07:00 IMPRESSION: CT GUIDED LEFT KIDNEY CORTICAL BIOPSY. Qualifiers PATEINT BEING DISCHARGED WITH ANY OF THE FOLLOWING DIAGNOSIS?: No
[2017-08-04 13:27] LABS: ALDOSTERONE <1.0 ng/dL (0.0-30.0); RENIN ACTIVITY <0.167 ng/mL/hr (0.167-5.380)
== END 2017-08-04 14:29 | disposition home or self-care (01) | DRG 292 ==
LOC: ER 15:49 → EH 07-30 00:38 → 4N 07-30 03:12
PROVIDERS: ADMIT Family Medicine; ATTEND Family Medicine
PROC: 0TB13ZX Excision of Left Kidney, Percutaneous Approach, Diagnostic (ICD-10-PCS; principal; 2017-08-03)
DX: I13.0 Hypertensive heart and chronic kidney disease with heart failure and stage 1 through stage 4 chronic kidney disease, or unspecified chronic kidney disease (principal); N17.9 Acute kidney failure, unspecified; N18.4 Chronic kidney disease, stage 4 (severe); E11.22 Type 2 diabetes mellitus with diabetic chronic kidney disease; E11.65 Type 2 diabetes mellitus with hyperglycemia; I50.9 Heart failure, unspecified; D63.1 Anemia in chronic kidney disease; M19.90 Unspecified osteoarthritis, unspecified site; E11.43 Type 2 diabetes mellitus with diabetic autonomic (poly)neuropathy; Z87.891 Personal history of nicotine dependence; Z88.1 Allergy status to other antibiotic agents; E55.9 Vitamin D deficiency, unspecified
CPT/HCPCS: 36415; 50200; 71046; 73522; 77012; 80048; 80053; 80061; 81001; 82088; 82306; 82383; 82533; 82550; 82553; 82570; 82575; 82595; 82607; 82728; 82746; 82803; 82962; 83036; 83516; 83540; 83550; 83735; 83835; 83880; 83970; 84100; 84156; 84166; 84244; 84439; 84443; 84466; 84484; 85025; 85045; 85610; 85652; 85730; 86160; 86256; 86317; 86320; 86704; 87086; 87340; 87522; 88313; 88346; 88348; 93005; 93010; 93306; 93976; 94640; 99285; J0360; J1644; J1815; J2250; J2270; J2405; J3010; J3490; J7030; J7620; Q0138; S0119

== ENCOUNTER 2017-08-16 21:03 | Emergency (ER) | payer OTHER ==
[2017-08-16 22:36] LABS: ABSOLUTE BASOPHILS # (AUTO) 0.2 10^3/uL (0.0-0.2); ABSOLUTE EOSINOPHILS # (AUTO) 0.4 10^3/uL (0.0-0.6); ABSOLUTE LYMPHOCYTES (AUTO) 1.6 10^3/uL (0.5-4.7); ABSOLUTE MONOCYTES (AUTO) 0.5 10^3/uL (0.1-1.4); ABSOLUTE NEUT (AUTO) 4.9 10^3/uL (1.7-8.2); BASOPHILS % (AUTO) 2.2 % (0-2); EOSINOPHILS % (AUTO) 5.2 % (0-6); HEMOGLOBIN 11.9 g/dL (13.5-17.0); LYMPHOCYTES % (AUTO) 20.7 % (13-45); MEAN CORPUSCULAR HEMOGLOBIN 27.6 pg (27.0-33.4); MEAN CORPUSCULAR VOLUME 79 fl (80-97); MONOCYTES % (AUTO) 6.5 % (3-13); PLATELET COUNT 321 10^3/uL (150-450); RED BLOOD COUNT 4.32 10^6/uL (4.35-5.55); RED CELL DISTRIBUTION WIDTH 13.9 % (11.5-14.0); SEGMENTED NEUTROPHILS % (AUTO) 65.4 % (42-78); TOTAL CELLS COUNTED % (AUTO) 100 %; WHITE BLOOD COUNT 7.5 10^3/uL (4.0-10.5)
[2017-08-16 22:55] LABS: ALANINE AMINOTRANSFERASE 32 U/L (21-72); ALBUMIN 3.4 g/dL (3.5-5.0); ALKALINE PHOSPHATASE 109 U/L (38-126); ANION GAP 8 (5-19); ASPARTATE AMINO TRANSFERASE 23 U/L (17-59); BILIRUBIN,DIRECT 0.3 mg/dL (0.0-0.4); BILIRUBIN,TOTAL 0.3 mg/dL (0.2-1.3); BLOOD UREA NITROGEN 50 mg/dL (7-20); CALCIUM 9.1 mg/dL (8.4-10.2); CARBON DIOXIDE 30 mmol/L (22-30); CHLORIDE 99 mmol/L (98-107); GLUCOSE 142 mg/dL (75-110); POTASSIUM 4.9 mmol/L (3.6-5.0); SODIUM 137.4 mmol/L (137-145); TOTAL PROTEIN 6.5 g/dL (6.3-8.2)
[2017-08-16] MEDS ORDERED: OXYCODONE-ACETAMINOPHEN 5-325 MG TABLET PO ONE (23:10)
--- NOTE | 2017-08-16 23:10 | ER Document Report ---
ED General - General Chief Complaint: Flank Pain Stated Complaint: FLANK PAIN Time Seen by Provider: 08/16/17 22:37 Notes: Patient is a 37-year-old male who presents emergency department with a chief complaint of left lower chest/flank pain. Patient was recently discharged on August 04 after hospitalization for acute on chronic renal failure, acute on chronic congestive heart failure secondary to uncontrolled diabetes. Patient had a biopsy in the hospital and has not had those results yet. Patient denies any fevers, chills, decreased urinary output, worsening shortness of breath, difficulty breathing, lower extremity edema. He admits to constant ache/ stabbing pain in his left lower back above his left flank and is been persistent since his discharge. He does admit to some shortness of breath but that is only with exertion trying to walk further than his normal. Patient has been taking his home medications as directed. Patient has not followed up with his relay man or multimedia artist since discharge. Patient states that he is due to follow-up with nephrology on and cardiology on Wednesday. TRAVEL OUTSIDE OF THE [place] IN LAST 30 DAYS: No - Related Data Allergies/Adverse Reactions: clarithromycin [From [employer]] Allergy (Verified 07/29/17 15:51) Past Medical History - Social History Smoking Status: Smoker,Current Status Unk Family History: CAD, DM - Past Medical History Cardiac Medical History: Reports: Hx Hypertension Endocrine Medical History: Reports: Hx Diabetes Mellitus Type 2 Renal/ Medical History: Denies: Hx Peritoneal Dialysis Musculoskeltal Medical History: Reports Hx Arthritis Past Surgical History: Reports: Other - EGD and colonoscopy recently Review of Systems - Review of Systems Constitutional: No symptoms reported Cardiovascular: No symptoms reported Respiratory: See HPI Gastrointestinal: No symptoms reported Musculoskeletal: See HPI Skin: No symptoms reported -: Yes All other systems reviewed and negative Physical Exam - Vital signs Vitals: Temp Pulse Resp BP Pulse Ox 97.9 F 92 20 181/103 H 100 08/16/17 21:37 08/16/17 21:37 08/16/17 21:37 08/16/17 21:37 08/16/17 21:37 - Notes Notes: PHYSICAL EXAM GENERAL: Alert, interacts well. HEAD: Normocephalic, atraumatic. EYES: Pupils equal, round, and reactive to light. Extraocular movements intact. ENT: Oral mucosa moist, tongue midline. NECK: Full range of motion. Supple. Trachea midline. LUNGS: Clear to auscultation bilaterally, no wheezes, rales, or rhonchi. No respiratory distress. HEART: Regular rate and rhythm. No murmurs, gallops, or rubs. ABDOMEN: Soft, nondistended, nontender. No guarding, rebound, or rigidity.. Bowel sounds present in all 4 quadrants. EXTREMITIES: Moves all 4 extremities spontaneously. 1+ edema bilateral, radial and dorsalis pedis pulses 2/4 bilaterally. No cyanosis. NEUROLOGICAL: Alert and oriented x4. Normal speech. PSYCH: Normal affect, normal mood. SKIN: Warm, dry, normal turgor. No rashes or lesions noted. Course - Re-evaluation Re-evalutation: 08/17/17 02:30 Patient is a 37-year-old male who is hemodynamically stable, no acute distress and afebrile. CBC stable without evidence of leukocytosis or anemia. Chemistry is stable with baseline creatinine with comparison to previous labs prior to discharge. Troponin lower than before. BNP at 2300. Chest x-ray shows mild left pleural effusion. Renal ultrasound does not show any evidence of abscess which should be of concern status post biopsy. No evidence of renal stones, hydronephrosis. Patient able to ambulate on pulse ox with the lowest saturation of 97% on room air. Orthostatics also stable. I did consult Dr. Ness regarding this patient who agrees that patient's labs are consistent with his baseline from discharge and that he does not meet inpatient criteria for congestive heart failure. We will continue his home Bumex as directed and will have him follow-up with nephrology and cardiology as scheduled. Discussed strict return precautions. Patient and at the bedside are agreeable with plan. - Vital Signs Vital signs: Temp Pulse Resp BP Pulse Ox 98.6 F 76 18 186/103 H 96 08/17/17 03:00 08/17/17 03:00 08/17/17 03:00 08/17/17 03:00 08/17/17 03:00 - Laboratory Result Diagrams: 08/16/17 22:25 08/16/17 22:25 Laboratory results interpreted by me: 08/16/17 08/16/17 08/16/17 22:25 22:25 22:25 RBC 4.32 L Hgb 11.9 L Hct 34.0 L MCV 79 L Basophils % 2.2 H BUN 50 H Creatinine 3.17 H Est GFR ( Amer) 27 L Est GFR (Non-Af Amer) 22 L Glucose 142 H Creatine Kinase 189 H CK-MB (CK-2) NT-Pro-B Natriuret Pep Albumin 3.4 L Lipase 16.0 L Urine Protein Urine Glucose (UA) Urine Blood 08/16/17 08/16/17 22:25 22:25 RBC Hgb Hct MCV Basophils % BUN Creatinine Est GFR ( Amer) Est GFR (Non-Af Amer) Glucose Creatine Kinase CK-MB (CK-2) 12.60 H NT-Pro-B Natriuret Pep 2450 H Albumin Lipase Urine Protein >=500 H Urine Glucose (UA) 50 H Urine Blood MODERATE H - Diagnostic Test Radiology reviewed: Image reviewed, Reports reviewed - EKG Interpretation by Me EKG shows normal: Sinus rhythm Rate: Normal Rhythm: NSR When compared to previous EKG there are: No significant change Discharge - Discharge Clinical Impression: Left flank pain Chronic renal failure Qualifiers: Chronic kidney disease stage: unspecified stage Qualified Code(s): N18.9 - Chronic kidney disease, unspecified Congestive heart failure Qualifiers: Congestive heart failure type: unspecified Congestive heart failure chronicity : unspecified Qualified Code(s): I50.9 - Heart failure, unspecified Condition: Stable Disposition: HOME, SELF-CARE Additional Instructions: Your pain today is likely related to the biopsy you had done recently that has showed evidence of inflammatory fluid around your lung. Please take your pain medication as directed. Please follow-up with your relay man and multimedia artist as scheduled this week. Please continue to take your diuretic as you have been. Pleurisy Your chest pain has been diagnosed as pleuritis (pleurisy). This is an inflammation of the surface of the lung tissue. It can be caused by a virus or , occasionally, old scar tissue. It is painful but, for the most part, not a serious problem. This pain is usually made worse by deep breathing, coughing, or sudden movements of the upper body or arms. The treatment is relief of symptoms. It includes rest, antiinflammatory medication, and pain medicine. Resolution of the pain is usually rapid once antiinflammatory medication is started. Warning signs of a more serious problem include: a fever, shortness of breath, pain that radiates to your jaw, shoulders or arms, or coughing up bloody sputum. If any of these symptoms occur, call the physician at once. Prescriptions: Tramadol HCl 50 mg PO Q6HP PRN #15 tablet PRN Reason: Oxycodone HCl/Acetaminophen [Percocet 5-325 mg Tablet] 1 - 2 tab PO Q4H PRN #10 tablet PRN Reason: Forms: Parent Work Note Referrals: HUGO RYDER MD [Primary Care Provider] - Follow up in 1 week
[2017-08-16 23:41] LABS: CREATINE KINASE MB 12.6 ng/mL (<4.55); TROPONIN I 0.023 ng/mL
[2017-08-17 00:30] LABS: APPEARANCE,URINE SLIGHTLY-CLOUDY; BILIRUBIN,URINE NEGATIVE (NEGATIVE); COLOR,URINE YELLOW; GLUCOSE, URINE 50 mg/dL (NEGATIVE); KETONES,URINE NEGATIVE (NEGATIVE); LEUKOCYTE ESTERASE,URINE NEGATIVE (NEGATIVE); NITRITE,URINE NEGATIVE (NEGATIVE); PROTEIN,URINE >=500 mg/dL (NEGATIVE); UROBILINOGEN,URINE NEGATIVE mg/dL (<2.0)
--- NOTE | 2017-08-17 01:44 | RADIOLOGY REPORT (SQ) ---
EXAM DESCRIPTION: U/S RETROPERITON LTD CLINICAL HISTORY: 37 years, Male, left flank pain, previous bx COMPARISON: CR chest, 08/16/2017. LIMITATIONS: None. FINDINGS: Small left pleural effusion. Mild increased echogenicity of the left kidney. 10.5 cm right kidney, 13.1 cm left kidney, and urinary bladder appear otherwise unremarkable. Bilateral ureteral jet flow is demonstrated. IMPRESSION: Small left pleural effusion. No acute sonographic findings of the renal system.
--- NOTE | 2017-08-17 01:47 | RADIOLOGY REPORT (SQ) ---
EXAM DESCRIPTION: CHEST PA/LAT CLINICAL HISTORY: 37 years, Male, CASITLL[place], SOB h/o CHF COMPARISON: Ultrasound, retroperitoneum, 08/17/2017. NUMBER OF VIEWS: 2 LIMITATIONS: None. FINDINGS: Minimal left pleural effusion is also demonstrated on concurrent sonogram. Clear lungs. Normal cardiac silhouette. Minimal chronic anterior vertebral wedging of the thoracolumbar junctional levels. IMPRESSION: Minimal left pleural effusion. Else, unremarkable.
[2017-08-17 03:59] VITALS: BP 186/103
--- NOTE | 2017-08-17 07:41 | EKG REPORT ---
SEVERITY:- ABNORMAL ECG - SINUS RHYTHM LEFT ANTERIOR FASCICULAR BLOCK CONSIDER LEFT VENTRICULAR HYPERTROPHY : Confirmed by: Frankie Gordon MD 17-Aug-2017 07:41:23
== END 2017-08-17 03:00 | disposition home or self-care (01) ==
LOC: ER 21:03
DX: I50.9 Heart failure, unspecified (principal); N18.9 Chronic kidney disease, unspecified; R10.32 Left lower quadrant pain; E11.9 Type 2 diabetes mellitus without complications; M54.5 Low back pain; R06.02 Shortness of breath; R60.0 Localized edema; F17.200 Nicotine dependence, unspecified, uncomplicated
CPT/HCPCS: 36415; 71046; 76775; 80053; 81001; 82550; 82553; 83690; 83880; 84484; 85025; 93005; 93010; 99284

== ENCOUNTER 2017-09-24 13:34 | Emergency (ER) | payer BC, OTHER ==
[2017-09-24 13:46] VITALS: BP 179/109
--- NOTE | 2017-09-24 14:07 | ER Document Report ---
ED Medical Screen (RME) - General Chief Complaint: Flank Pain Stated Complaint: BACK/FLANK PAIN Notes: RME DISCLOSURE I have seen this patient as part of a Rapid Medical Evaluation and, if applicable, placed any initially appropriate orders. The patient will be seen and fully evaluated, including a full history and physical exam, by a provider ( in Main ED or Fast Track) when a room becomes available. 37-year-old male PMH acute renal failure here with complaints of leg swelling that started several days ago, both sides, and left flank pain that started this morning. He was hospitalized last month for renal failure and reports that his kidney function improved without dialysis. He did have a left kidney biopsy performed. His flank pain and his leg swelling then resolved after discharge until this episode. He is afraid he is in renal failure again. Exam BLE pitting edema present Mild to moderate left flank tenderness to palpation TRAVEL OUTSIDE OF THE [place] IN LAST 30 DAYS: No - Related Data Allergies/Adverse Reactions: clarithromycin [From Biaxin] Allergy (Verified 09/24/17 13:38) Past Medical History - Social History Frequency of alcohol use: Rare Drug Abuse: None - Past Medical History Cardiac Medical History: Reports: Hx Hypertension Endocrine Medical History: Reports: Hx Diabetes Mellitus Type 2 Renal/ Medical History: Denies: Hx Peritoneal Dialysis Musculoskeltal Medical History: Reports Hx Arthritis Past Surgical History: Reports: Other - EGD and colonoscopy recently - Immunizations History of Influenza Vaccine for 04/2017 - 09/2017 Season: Refused Physical Exam - Vital signs Vitals: Temp Pulse Resp BP Pulse Ox 98.5 F 79 18 179/109 H 95 09/24/17 13:45 09/24/17 13:45 09/24/17 13:45 09/24/17 13:45 09/24/17 13:45 Course - Vital Signs Vital signs: Temp Pulse Resp BP Pulse Ox 98.5 F 79 18 179/109 H 95 09/24/17 13:45 09/24/17 13:45 09/24/17 13:45 09/24/17 13:45 09/24/17 13:45
[2017-09-24] MEDS ORDERED: ACETAMINOPHEN 325 MG TABLET PO ONE (14:08)
[2017-09-24 14:34] LABS: ABSOLUTE BASOPHILS # (AUTO) 0.1 10^3/uL (0.0-0.2); ABSOLUTE EOSINOPHILS # (AUTO) 0.6 10^3/uL (0.0-0.6); ABSOLUTE LYMPHOCYTES (AUTO) 1.6 10^3/uL (0.5-4.7); ABSOLUTE MONOCYTES (AUTO) 0.5 10^3/uL (0.1-1.4); BASOPHILS % (AUTO) 1.5 % (0-2); EOSINOPHILS % (AUTO) 8.2 % (0-6); HEMATOCRIT 29.5 % (37.9-51.0); HEMOGLOBIN 10.3 g/dL (13.5-17.0); LYMPHOCYTES % (AUTO) 20.2 % (13-45); MEAN CORPUSCULAR HEMOGLOBIN 27.8 pg (27.0-33.4); MEAN CORPUSCULAR HGB CONC 34.8 g/dL (32.0-36.0); MEAN CORPUSCULAR VOLUME 80 fl (80-97); MONOCYTES % (AUTO) 6.1 % (3-13); PLATELET COUNT 294 10^3/uL (150-450); RED BLOOD COUNT 3.69 10^6/uL (4.35-5.55); TOTAL CELLS COUNTED % (AUTO) 100 %; WHITE BLOOD COUNT 7.9 10^3/uL (4.0-10.5)
[2017-09-24 15:06] LABS: APPEARANCE,URINE CLEAR; BILIRUBIN,URINE NEGATIVE (NEGATIVE); COLOR,URINE STRAW; GLUCOSE, URINE >=500 mg/dL (NEGATIVE); KETONES,URINE NEGATIVE (NEGATIVE); LEUKOCYTE ESTERASE,URINE NEGATIVE (NEGATIVE); NITRITE,URINE NEGATIVE (NEGATIVE); PROTEIN,URINE >=500 mg/dL (NEGATIVE); URINE SPECIFIC GRAVITY 1.012; UROBILINOGEN,URINE NEGATIVE mg/dL (<2.0)
[2017-09-24 15:40] LABS: ANION GAP 9 (5-19); BLOOD UREA NITROGEN 65 mg/dL (7-20); CALCIUM 8.8 mg/dL (8.4-10.2); CARBON DIOXIDE 24 mmol/L (22-30); CHLORIDE 104 mmol/L (98-107); GLUCOSE 223 mg/dL (75-110); POTASSIUM 5.1 mmol/L (3.6-5.0); SODIUM 136.7 mmol/L (137-145)
--- NOTE | 2017-09-24 15:55 | ER Document Report ---
ED General - General Chief Complaint: Flank Pain Stated Complaint: BACK/FLANK PAIN Time Seen by Provider: 09/24/17 14:08 Mode of Arrival: Ambulatory Information source: Patient, Parent TRAVEL OUTSIDE OF THE [place] IN LAST 30 DAYS: No - HPI Notes: 37-year-old male with a history of type 2 diabetes, chronic renal failure, hypertension presents today with complaints of bilateral lower leg swelling, left flank pain started 2 days ago. 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 Patient is currently on Bumex 1 mg twice a day which was prescribed by his manager cardiovascular Dr. Martinez. Patient states he only has 22% of his renal function, with stage V chronic kidney failure. Patient has not been seen by cardiology or nephrology until the last few months because of his health insurance, which recently changed her he is able to see more providers. Take metoprolol 50 mg once a day, Patient states his blood pressure is chronically elevated. Did have a stress test as well as echo done by Dr. Sewell approximately 3 months ago where everything came back normal.patient is also on Lantus for his diabetes. Patient states his A1c used to be 22, is now down to 12 though he does not know the exact number. Denies fevers, chills, chest pain,palpitations, shortness of breath, dyspnea, nausea , vomiting, diarrhea, abdominal pain, hematuria,blurred vision, double vision, loss of vision, speech changes, LH, dizziness, syncope, headaches, wheezing, ST , URI, neck pain, weakness, bowel or bladder dysfunction, saddle anesthesia, numbness or tingling in bilateral upper or lower extremities equally, muscle paralysis, weakness in bilateral upper or lower extremities equally or rash. Denies IV drug use. - Related Data Allergies/Adverse Reactions: clarithromycin [From Biaxin] Allergy (Verified 09/24/17 13:38) Past Medical History - General Information source: Patient, Relative - - Social History Smoking Status: Former Smoker Frequency of alcohol use: Rare Drug Abuse: None Family History: CAD, DM Patient has suicidal ideation: No Patient has homicidal ideation: No - Past Medical History Cardiac Medical History: Reports: Hx Hypertension, Other - Diabetes, stage V kidney failure, hypertension Endocrine Medical History: Reports: Hx Diabetes Mellitus Type 2 Renal/ Medical History: Denies: Hx Peritoneal Dialysis Musculoskeltal Medical History: Reports Hx Arthritis Past Surgical History: Reports: Other - EGD and colonoscopy recently Review of Systems - Review of Systems Notes: REVIEW OF SYSTEMS: CONSTITUTIONAL : Denies fever, chills, or sweats. Denies recent illness. EENT: Denies eye, ear, throat, or mouth pain or symptoms. Denies nasal or sinus congestion or discharge. Denies throat, tongue, or mouth swelling or difficulty swallowing. CARDIOVASCULAR: Denies chest pain. Denies palpitations or racing or irregular heart beat. Denies ankle edema. RESPIRATORY: Denies cough, cold, or chest congestion. Denies shortness of breath, difficulty breathing, or wheezing. GASTROINTESTINAL: + left flank pain. Denies abdominal pain or distention. Denies nausea, vomiting, or diarrhea. Denies blood in vomitus, stools, or per rectum. Denies black, tarry stools. Denies constipation. Left cva tenderness. GENITOURINARY: Denies difficulty urinating, painful urination, burning, frequency, blood in urine, or discharge. MUSCULOSKELETAL: Denies back or neck pain or stiffness. Denies joint pain or swelling. SKIN: Denies rash, lesions or sores. + bilateral leg swelling. HEMATOLOGIC : Denies easy bruising or bleeding. LYMPHATIC: Denies swollen, enlarged glands. NEUROLOGICAL: Denies confusion or altered mental status. Denies passing out or loss of consciousness. Denies dizziness or lightheadedness. Denies headache. Denies weakness or paralysis or loss of use of either side. Denies problems with gait or speech. Denies sensory loss, numbness, or tingling. Denies seizures. PSYCHIATRIC: Denies anxiety or stress. Denies depression, suicidal ideation, or homicidal ideation. ALL OTHER SYSTEMS REVIEWED AND NEGATIVE. Dictation was performed using [employer] voice recognition software PHYSICAL EXAMINATION: GENERAL: Well-appearing, well-nourished and in no acute distress. HEAD: Atraumatic, normocephalic. EYES: Pupils equal round and reactive to light, extraocular movements intact, sclera anicteric, conjunctiva are normal. ENT: Nares patent, oropharynx clear without exudates. Moist mucous membranes. NECK: Normal range of motion, supple without lymphadenopathy LUNGS: Breath sounds clear to auscultation bilaterally and equal. No wheezes rales or rhonchi. HEART: Regular rate and rhythm without murmurs ABDOMEN: Soft, nontender, nondistended abdomen. No guarding, no rebound. No masses appreciated. L sided CVA tenderness. No right-sided CVA tenderness appreciated. Musculoskeletal: Normal range of motion, no pitting or edema. No cyanosis. NEUROLOGICAL: Cranial nerves grossly intact. Normal speech, normal gait. Normal sensory, motor exams PSYCH: Normal mood, normal affect. SKIN: Warm, Dry, normal turgor, no rashes or lesions noted. Distal pulses +2 in bilateral lower extremities. Warm to touch. Noted pedal edema bilaterally equally. Homans test negative bilaterally. DTR +2 bilateral lower extremities equally. Full motor and sensory function in bilateral lower extremities equally. Strength 5 out of 5 in bilateral lower extremities equally. Normal gait. Cap refill less than 3 seconds in bilateral lower extremities equally. Physical Exam - Vital signs Vitals: Temp Pulse Resp BP Pulse Ox 98.5 F 79 18 179/109 H 95 09/24/17 13:45 09/24/17 13:45 09/24/17 13:45 09/24/17 13:45 09/24/17 13:45 Course - Re-evaluation Re-evalutation: A chronically ill but healthy-appearing male presents today for complaints of worsening bilateral leg swelling that has been occurring over the last months due to his chronic renal failure as well as left CVA tenderness. CBC unremarkable anemia or leukocytosis, creatinine 3.82. Potassium 5.1, urinalysis shows proteinuria, hematuria and glucouria. Chest x-ray negative for any acute findings, venous congestion noticed or pleural effusions consulted with Dr. Perez, nephrology on-call, regarding patient's creatinine. Advised to double his Bumex give him a IVP Bumex and to have him follow-up with Dr. maria on Wednesday which is his manager cardiovascular. Discussed findings with patient, all questions and concerns answered by this provider. Discussed with patient to continue taking all medications but I will be adding medications such as hydrochlorothiazide 12.5mg/losartan 25 mg orally for blood pressure as well as also a diuretic. Will double Bumex 2 4 mg in the morning and 4 mg at night as this is not exceed the 10 mg per day. Patient's potassium has remained in the high range of normal at 5.1 so I do not believe this to be an issue in regards to his potassium. Advised patient that reducing does need to speak with his manager cardiovascular on wednesday. Advised patient to return to the emergency room if not limited to fevers, chills, chest pain,palpitations, shortness of breath, dyspnea, nausea, vomiting, diarrhea, abdominal pain, hematuria,blurred vision, double vision, loss of vision, speech changes, LH, dizziness, syncope, headaches, wheezing, ST, URI, neck pain, weakness, bowel or bladder dysfunction, saddle anesthesia, numbness or tingling in bilateral upper or lower extremities equally, muscle paralysis, weakness in bilateral upper or lower extremities equally or rash. She verbalized understanding of these instructions and agree with plan of care. All questions and concerns answered by this provider. Patient discharged home, will be driving him. - Vital Signs Vital signs: Temp Pulse Resp BP Pulse Ox 98.5 F 79 18 179/109 H 95 09/24/17 13:45 09/24/17 13:45 09/24/17 13:45 09/24/17 13:45 09/24/17 13:45 - Laboratory Result Diagrams: 09/24/17 14:20 09/24/17 14:56 Laboratory results interpreted by me: 09/24/17 09/24/17 09/24/17 14:20 14:20 14:56 RBC 3.69 L Hgb 10.3 L Hct 29.5 L Eosinophils % 8.2 H Sodium 136.7 L Potassium 5.1 H BUN 65 H Creatinine 3.82 H Est GFR ( Amer) 22 L Est GFR (Non-Af Amer) 18 L Glucose 223 H NT-Pro-B Natriuret Pep Urine Protein >=500 H Urine Glucose (UA) >=500 H Urine Blood MODERATE H 09/24/17 14:56 RBC Hgb Hct Eosinophils % Sodium Potassium BUN Creatinine Est GFR ( Amer) Est GFR (Non-Af Amer) Glucose NT-Pro-B Natriuret Pep 3540 H Urine Protein Urine Glucose (UA) Urine Blood Discharge - Discharge Clinical Impression: Chronic renal failure, Hypertension Acute on chronic renal failure Qualifiers: Acute renal failure type: unspecified Chronic kidney disease stage: unspecified stage Qualified Code(s): N17.9 - Acute kidney failure, unspecified Condition: Good Instructions: High Blood Pressure ([facility]), Kidney Failure ([facility]) Additional Instructions: Kidney Failure When your kidneys no longer filter the blood adequately, we call this "kidney failure." While kidney failure can happen suddenly, usually it's the result of many years of slow damage. Kidneys can be injured by many different medical problems including infections, diabetes, high blood pressure, kidney stones, drug toxicity, and immune reactions. The symptoms of kidney failure do not develop until most of the normal kidney tissue has been lost. Early kidney failure usually has no symptoms. As it gets worse, symptoms can include weakness, confusion, high blood pressure, swelling, nausea, anemia, and itching. The seriousness of kidney failure is determined by measuring kidney function tests such as BUN or creatinine. The cause of kidney failure may be obvious from the medical history, but occasionally requires special tests such as an angiogram or kidney biopsy. Kidney failure can cause high blood pressure, and uncontrolled hypertension damages kidneys. Good control of blood pressure is important. If you have diabetes, good blood sugar control helps prevent further kidney damage. Fluid retention can be monitored by checking your weight daily. It's best to eat a diet low in protein, potassium, and salt. When kidney failure becomes severe, dialysis or kidney transplant may be required. Call the doctor or return if you develop significant weakness, repeated vomiting, severe lightheadedness, confusion, severe headache, or other serious change in your health. HYPERGLYCEMIA (HIGH BLOOD SUGAR): You have an abnormally high blood sugar. Not all high blood sugar requires long-term treatment. High blood sugar can be due to medications, , or the stress of illness. (These cases are "borderline diabetes.") If the doctor feels your high blood sugar might resolve with time, you may not require treatment now. It's very important that you follow through, to see if the blood sugar returns to normal levels. Uncontrolled high blood sugar leads to early heart disease, strokes, nerve damage, eye damage, and kidney damage. Call the physician if there is faintness, excess sleepiness, or very rapid breathing. DIABETES: You have an abnormally high blood sugar, suspicious for diabetes. Not all high blood sugar requires long-term treatment. High blood sugar can be due to medications, , or the stress of illness. (These cases are "borderline diabetes.") If the doctor feels your high blood sugar might get better with time, you may not require treatment now. It's very important that you follow through. Uncontrolled high blood sugar leads to early heart disease, strokes, nerve damage, eye damage, and kidney damage. All diabetics should follow a diet designed to control the blood sugar. Overweight diabetics should exercise regularly and lose weight. If this is not sufficient to control the blood sugar, pills or insulin shots are necessary. Younger people who develop diabetes almost always require insulin daily. Home testing of blood sugars or urine sugar is required. Diabetic teaching is available to help you figure insulin doses and monitor the blood sugar. Call the physician if there is faintness, excess sleepiness, or very rapid breathing. If hypoglycemia (LOW blood sugar) develops, symptoms are shakiness, weakness, sweating, and confusion. In this case, you should eat or drink something with sugar at once. INSULIN: Insulin is a natural hormone that lowers blood sugar. Normal blood sugar prevents complications of diabetes. For most diabetics, insulin is the best way to treat the illness. Be sure you know how to measure the insulin correctly. Insulin is measured in "units." There are three types of insulin: N (NPH or long acting), R (regular or short acting), and L (Lente or very long acting). Be sure you are using the right amount of each type. Insulin must be injected into the fat. You can use the abdomen, upper arms , and thighs. Select a different injection site every time. Wipe the site with alcohol before injecting. When first starting insulin, some adjusting of the insulin dose is necessary. Keep a record of each insulin dose and time of injection, and of the blood sugar and the time you test it. Sometimes insulin can make the blood sugar too low. If you become dizzy, sweaty, shaky, or confused, you may be having a hypoglycemic episode. Immediately use juice or some other sweet food. Call the doctor if the symptoms don't go away. FOLLOW-UP CARE: If you have been referred to a physician for follow-up care, call the physician s office for an appointment as you were instructed or within the next two days. If you experience worsening or a significant change in your symptoms, notify the physician immediately or return to the Emergency Department at any time for re-evaluation. follow-up with your manager cardiovascular on Wednesday. I will increase your Bumex, you will take 4 mg in the morning and 4 mg at night. start hydrochlorothiazide and losartan to help reduce her blood pressure. Monitor your blood pressures at home. Advised to elevate your legs while you are home. Follow low-sodium diet. Prescriptions: Bumetanide [Bumex 1 mg Tablet] 2 mg PO BID #10 tablet Losartan/Hydrochlorothiazide [Hyzaar 50-12.5 Tablet] 1 each PO DAILY #10 tablet Forms: Parent Work Note, Return to Work Referrals: HUGO RYDER MD [Primary Care Provider] - Follow up as needed KANDI MARTINEZ MD [ACTIVE STAFF] - 09/27/17
[2017-09-24] MEDS ORDERED: HYDROCODONE/ACETAMINOPHEN 5-325 MG TABLET PO ONE (15:56)
[2017-09-24] MEDS ORDERED: NORMAL SALINE 1000 ML 1,000 ML IV ONE (15:57)
[2017-09-24] MEDS ORDERED: LOSARTAN POTASSIUM 50 MG TABLET PO ONE (16:56)
[2017-09-24] MEDS ORDERED: NORMAL SALINE 500 ML IV PRN (17:04)
[2017-09-24] MEDS ORDERED: FUROSEMIDE INJ/PF 40 MG/4 ML SDV IV ONE (17:16)
--- NOTE | 2017-09-24 17:30 | RADIOLOGY REPORT (SQ) ---
EXAM DESCRIPTION: CT ABD/PELVIS NO ORAL OR IV COMPLETED DATE/TIME: 09/24/2017 4:58 pm REASON FOR STUDY: L flank pain COMPARISON: None. TECHNIQUE: CT scan of the abdomen and pelvis performed without intravenous or oral contrast. Images reviewed with lung, soft tissue, and bone windows. Reconstructed coronal and sagittal MPR images revi ewed. All images stored on PACS. All CT scanners at this facility use dose modulation, iterative reconstruction, and/or weight based d osing when appropriate to reduce radiation dose to as low as reasonably achievable (ALARA). [facility]: Dose Right [facility]: CareDose [facility]: Dose Right [facility]: Teradose 4D [facility]: Smart FanIQ RADIATION DOSE: CT Rad equipment meets quality standard of care and radiation dose reduction techniq ues were employed. CTDIvol: 14.0 mGy. DLP: 828 mGy-cm.mGy. LIMITATIONS: None. FINDINGS: LOWER CHEST: There are moderate bilateral pleural effusions with mild compressive atelecta sis in the lower lobes. NON-CONTRASTED LIVER, SPLEEN, ADRENALS: Evaluation limited by lack of IV contrast. No identified sign ificant masses. PANCREAS: No masses. No peripancreatic inflammatory changes. GALLBLADDER: No identified stones by CT criteria. No inflammatory changes to suggest cholecystitis. RIGHT KIDNEY AND URETER: No suspicious masses. Assessment limited by lack of IV contrast. No signif icant calcifications. No hydronephrosis or hydroureter. LEFT KIDNEY AND URETER: No suspicious masses. Assessment limited by lack of IV contrast. No signifi cant calcifications. No hydronephrosis or hydroureter. AORTA AND RETROPERITONEUM: No aneurysm. No retroperitoneal masses or adenopathy. BOWEL AND PERITONEAL CAVITY: No obvious masses or inflammatory changes. No free fluid. APPENDIX: Normal. PELVIS, BLADDER, AND ABDOMINAL WALL:No abnormal masses. No free fluid. Bladder normal. BONES: No significant findings. OTHER: There is mild subcutaneous edema. IMPRESSION: 1. Bilateral pleural effusions and mild subcutaneous edema. 2. There is no urinary pathology. COMMENT: Quality ID # [id number]: Final reports with documentation of one or more dose reduction techniques (e.g., Automated exposure control, adjustment of the mA and/or kV according to patient size, use of iterative reconstruction technique) TECHNICAL DOCUMENTATION: JOB ID: [id number]- All Rights Reserved Reading location - IP/workstation name: [email or web address]
--- NOTE | 2017-09-24 17:37 | RADIOLOGY REPORT (SQ) ---
EXAM DESCRIPTION: CHEST SINGLE VIEW COMPLETED DATE/TIME: 09/24/2017 5:26 pm REASON FOR STUDY: bilateral leg swelling COMPARISON: None. EXAM PARAMETERS: NUMBER OF VIEWS: One view. TECHNIQUE: Single frontal radiographic view of the chest acquired. RADIATION DOSE: NA LIMITATIONS: None. FINDINGS: LUNGS AND PLEURA: No opacities, masses or pneumothorax. No pleural effusion. MEDIASTINUM AND HILAR STRUCTURES: No masses. Contour normal. HEART AND VASCULAR STRUCTURES: Heart normal in size. Normal vasculature. BONES: No acute findings. HARDWARE: None in the chest. OTHER: No other significant finding. IMPRESSION: NO ACUTE RADIOGRAPHIC FINDING IN THE CHEST. TECHNICAL DOCUMENTATION: JOB ID: [id number] [employer]- All Rights Reserved Reading location - IP/workstation name: [email or web address]
[2017-09-24] MEDS ORDERED: BUMETANIDE 1 MG TABLET PO ONE (18:35)
[2017-09-24] MEDS ORDERED: HYDROCODONE/ACETAMINOPHEN 5-325 MG (6 TAB/ER DISP) PO PRN (18:36)
[2017-09-24] MEDS ORDERED: HYDROMORPHONE HCL INJ/PF 2 MG/ML AMPULE IV ONE (18:36)
[2017-09-24] MEDS ORDERED: BUMETANIDE INJ/PF 1 MG/4 ML SDV IV ONE (18:37)
== END 2017-09-24 19:21 | disposition home or self-care (01) ==
LOC: ER 13:34
DX: R10.9 Unspecified abdominal pain (principal); N17.9 Acute kidney failure, unspecified; I12.9 Hypertensive chronic kidney disease with stage 1 through stage 4 chronic kidney disease, or unspecified chronic kidney disease; E11.22 Type 2 diabetes mellitus with diabetic chronic kidney disease; N18.9 Chronic kidney disease, unspecified; Z79.4 Long term (current) use of insulin
CPT/HCPCS: 99284; 96361; 96374; 96375; 36415; 85025; 80048; 81001; 83880; 71045; 74176; J3490; J1170; J7030

== ENCOUNTER 2017-10-07 10:41 | Emergency (ER) | payer BC ==
[2017-10-07] MEDS ORDERED: METOCLOPRAMIDE HCL INJ/PF 10 MG/2 ML SDV IV ONE (11:40)
[2017-10-07] MEDS ORDERED: FENTANYL CITRATE INJ/PF 100 MCG/2 ML AMPUL IV ONE (11:40)
--- NOTE | 2017-10-07 11:41 | ER Document Report ---
ED Medical Screen (RME) - General Chief Complaint: Dizziness Stated Complaint: VOMITING Time Seen by Provider: 10/07/17 11:30 Mode of Arrival: Ambulatory Information source: Patient Notes: 37-year-old male stage IV kidney disease presents with complaints of flank pain as well as dizziness. Patient has history of diabetes hypertension seen by Dr. Freedman Patient noted to be hypotensive I have greeted and performed a rapid initial assessment of this patient. A comprehensive ED assessment and evaluation of the patient, analysis of test results and completion of the medical decision making process will be conducted by additional ED providers. PHYSICAL EXAMINATION: GENERAL: mild distress HEAD: Atraumatic, normocephalic. EYES: Pupils equal round extraocular movements intact, conjunctiva are normal. ENT: Nares patent NECK: Normal range of motion LUNGS: No respiratory distress Musculoskeletal: Normal range of motion NEUROLOGICAL: Normal speech, normal gait. PSYCH: Normal mood, normal affect. SKIN: Warm, Dry, normal turgor, no rashes or lesions noted. TRAVEL OUTSIDE OF THE [place] IN LAST 30 DAYS: No - Related Data Allergies/Adverse Reactions: clarithromycin [From Biaxin] Allergy (Verified 10/07/17 11:27) Past Medical History - Social History Chew tobacco use (# tins/day): No Frequency of alcohol use: None Drug Abuse: None - Past Medical History Cardiac Medical History: Reports: Hx Hypertension Endocrine Medical History: Reports: Hx Diabetes Mellitus Type 2 Renal/ Medical History: Denies: Hx Peritoneal Dialysis Musculoskeltal Medical History: Reports Hx Arthritis Past Surgical History: Reports: Other - EGD and colonoscopy recently - Immunizations History of Influenza Vaccine for 04/2017 - 09/2017 Season: Refused Physical Exam - Vital signs Vitals: Temp Pulse BP Pulse Ox 97.8 F 70 92/53 L 100 10/07/17 11:23 10/07/17 11:23 10/07/17 11:23 10/07/17 11:23 Course - Vital Signs Vital signs: Temp Pulse Resp BP Pulse Ox 97.8 F 70 92/53 L 100 10/07/17 11:23 10/07/17 11:23 10/07/17 11:23 10/07/17 11:23
--- NOTE | 2017-10-07 12:42 | ER Document Report ---
ED General - General Chief Complaint: Dizziness Stated Complaint: VOMITING Time Seen by Provider: 10/07/17 11:30 Mode of Arrival: Ambulatory Notes: The patient is a 37-year-old male, past medical history stage IV kidney disease , diabetes, hypertension, presents with left flank pain and feeling lightheaded. Patient vomited earlier today, but he no longer feels nausea. Patient has had multiple CAT scans for the same pain in the past, which do not show any acute abnormalities. He denies hematuria, fevers, dysuria, diarrhea or constipation. He follows with Dr. Martinez and has an appointment in 6 days. TRAVEL OUTSIDE OF THE [place] IN LAST 30 DAYS: No - Related Data Allergies/Adverse Reactions: clarithromycin [From Biaxin] Allergy (Verified 10/07/17 11:27) Past Medical History - General Information source: Patient - Social History Smoking Status: Former Smoker Chew tobacco use (# tins/day): No Frequency of alcohol use: None Drug Abuse: None Family History: CAD, DM Patient has suicidal ideation: No Patient has homicidal ideation: No - Past Medical History Cardiac Medical History: Reports: Hx Hypertension Endocrine Medical History: Reports: Hx Diabetes Mellitus Type 2 Renal/ Medical History: Denies: Hx Peritoneal Dialysis Musculoskeltal Medical History: Reports Hx Arthritis Past Surgical History: Reports: Other - EGD and colonoscopy recently Review of Systems - Review of Systems Notes: REVIEW OF SYSTEMS: CONSTITUTIONAL: -fevers, -chills EENT: -eye pain, -difficulty swallowing, -nasal congestion CARDIOVASCULAR: -chest pain, -syncope. RESPIRATORY: -cough, -SOB GASTROINTESTINAL: -abdominal pain, -nausea, -vomiting, -diarrhea GENITOURINARY: -dysuria, -hematuria MUSCULOSKELETAL: +flank pain, -neck pain SKIN: -rash or skin lesions. HEMATOLOGIC: -easy bruising or bleeding. LYMPHATIC: -swollen, enlarged glands. NEUROLOGICAL: -altered mental status or loss of consciousness, -headache, - neurologic symptoms PSYCHIATRIC: -anxiety, -depression. ALL OTHER SYSTEMS REVIEWED AND NEGATIVE. Physical Exam - Vital signs Vitals: Temp Pulse BP Pulse Ox 97.8 F 70 92/53 L 100 10/07/17 11:23 10/07/17 11:23 10/07/17 11:23 10/07/17 11:23 - Notes Notes: PHYSICAL EXAMINATION: GENERAL: Well-appearing, well-nourished and in no acute distress. Sleeping. HEAD: Atraumatic, normocephalic. EYES: Pupils equal round and reactive to light, extraocular movements intact, sclera anicteric, conjunctiva are normal. ENT: nares patent, oropharynx clear without exudates. Moist mucous membranes. NECK: Normal range of motion, supple without lymphadenopathy LUNGS: Breath sounds clear to auscultation bilaterally and equal. No wheezes rales or rhonchi. HEART: Regular rate and rhythm without murmurs ABDOMEN: Soft, nontender, normoactive bowel sounds. No guarding, no rebound. No masses appreciated. EXTREMITIES: Normal range of motion, no pitting or edema. No cyanosis. NEUROLOGICAL: Cranial nerves grossly intact. Normal speech, normal gait. Normal sensory and motor exams. PSYCH: Normal mood, normal affect. SKIN: Warm, Dry, normal turgor, no rashes or lesions noted. Course - Re-evaluation Re-evalutation: Patient with chronic left flank pain. He has already had multiple CT scans without evidence of an acute process. He is unable to urinate, but does not have fevers, CVA tenderness or leukocytosis to suggest pyelonephritis. 10/07/17 13:[address] Martinez (rn documentation specialist) about his updated renal function tests. The patient has an appointment with her this week. Will discharge patient home with return precautions. Patient asking for pain medications, but told that narcotics cannot be given for what seems to be a chronic pain issue without underlying etiology. He is to follow-up with his primary care physician for further evaluation and pain control. - Vital Signs Vital signs: Temp Pulse Resp BP Pulse Ox 97.8 F 70 14 128/83 H 96 10/07/17 11:23 10/07/17 11:23 10/07/17 12:20 10/07/17 12:20 10/07/17 12:20 - Laboratory Result Diagrams: 10/07/17 12:23 10/07/17 12:23 Laboratory results interpreted by me: 10/07/17 10/07/17 12:23 12:23 RBC 3.73 L Hgb 10.2 L Hct 29.7 L RDW 14.4 H Basophils % 2.2 H BUN 76 H Creatinine 4.56 H Est GFR ( Amer) 18 L Est GFR (Non-Af Amer) 15 L Albumin 3.2 L Discharge - Discharge Clinical Impression: Left flank pain Nausea and vomiting Qualifiers: Vomiting type: unspecified Vomiting Intractability: non-intractable Qualified Code(s): R11.2 - Nausea with vomiting, unspecified Condition: Stable Disposition: HOME, SELF-CARE Additional Instructions: Flank Pain We weren't able to prove an exact cause for your flank pain. Pain in the flank can be caused by a muscle strain or spasm. Sometimes a kidney stone causes pain, but can't be found on our tests. Infection in the kidney should be evident on a urine test. Early shingles can occasionally cause flank pain, without the rash that proves the diagnosis. On rare occasions, disease of the pancreas, aorta, spleen, or colon can create pain in the flank. At this time, there's no evidence of a dangerous condition, and it seems safe for you to be at home. If the pain goes away and does not come back, no further testing will be needed. If pain persists, or becomes more severe, we may need to repeat some tests or order additional new testing. Blood in the urine, urgency to urinate frequently, and pain that radiates to the groin can indicate a kidney stone. Fever may mean that the pain is due to infection, either of the kidney or the colon (diverticulitis). If your pain is early shingles, you should develop an eruption of blisters in the painful area within a few days. Call the doctor or return if you have pain that is spreading or becoming more severe, pain that does not resolve with time, fever, or any other new symptoms. Prescriptions: Ondansetron [Zofran Odt 4 mg Tablet] 1 - 2 tab PO Q4H PRN #15 tab.rapdis PRN Reason: For Nausea/Vomiting Forms: Elevated Blood Pressure, Return to Work Referrals: KANDI MARTINEZ MD [ACTIVE STAFF] - Follow up as needed
[2017-10-07 12:47] LABS: ABSOLUTE BASOPHILS # (AUTO) 0.2 10^3/uL (0.0-0.2); ABSOLUTE EOSINOPHILS # (AUTO) 0.5 10^3/uL (0.0-0.6); ABSOLUTE LYMPHOCYTES (AUTO) 1.9 10^3/uL (0.5-4.7); ABSOLUTE MONOCYTES (AUTO) 0.8 10^3/uL (0.1-1.4); ABSOLUTE NEUT (AUTO) 5.9 10^3/uL (1.7-8.2); BASOPHILS % (AUTO) 2.2 % (0-2); EOSINOPHILS % (AUTO) 5.6 % (0-6); HEMATOCRIT 29.7 % (37.9-51.0); HEMOGLOBIN 10.2 g/dL (13.5-17.0); LYMPHOCYTES % (AUTO) 20.1 % (13-45); MEAN CORPUSCULAR HEMOGLOBIN 27.5 pg (27.0-33.4); MEAN CORPUSCULAR HGB CONC 34.5 g/dL (32.0-36.0); MEAN CORPUSCULAR VOLUME 80 fl (80-97); MONOCYTES % (AUTO) 8.8 % (3-13); PLATELET COUNT 291 10^3/uL (150-450); RED BLOOD COUNT 3.73 10^6/uL (4.35-5.55); RED CELL DISTRIBUTION WIDTH 14.4 % (11.5-14.0); SEGMENTED NEUTROPHILS % (AUTO) 63.3 % (42-78); TOTAL CELLS COUNTED % (AUTO) 100 %; WHITE BLOOD COUNT 9.3 10^3/uL (4.0-10.5)
[2017-10-07 13:07] LABS: ALANINE AMINOTRANSFERASE 33 U/L (21-72); ALBUMIN 3.2 g/dL (3.5-5.0); ALKALINE PHOSPHATASE 116 U/L (38-126); ANION GAP 8 (5-19); ASPARTATE AMINO TRANSFERASE 17 U/L (17-59); BILIRUBIN,DIRECT 0.2 mg/dL (0.0-0.4); BILIRUBIN,TOTAL 0.2 mg/dL (0.2-1.3); BLOOD UREA NITROGEN 76 mg/dL (7-20); CALCIUM 8.9 mg/dL (8.4-10.2); CARBON DIOXIDE 30 mmol/L (22-30); CHLORIDE 99 mmol/L (98-107); GLUCOSE 100 mg/dL (75-110); POTASSIUM 4.3 mmol/L (3.6-5.0); TOTAL PROTEIN 6.3 g/dL (6.3-8.2)
[2017-10-07] MEDS ORDERED: NORMAL SALINE 500 ML IV ONE (13:37)
[2017-10-07 15:16] VITALS: BP 147/99
--- NOTE | 2017-10-07 21:53 | EKG REPORT ---
SEVERITY:- ABNORMAL ECG - SINUS RHYTHM ABNORMAL T, CONSIDER ISCHEMIA, LATERAL LEADS vs LVH RELATED ST ELEV, PROBABLE NORMAL EARLY REPOL PATTERN BORDERLINE PROLONGED QT INTERVAL : Confirmed by: Cindy Prater 07-Oct-2017 21:52:18
== END 2017-10-07 15:11 | disposition home or self-care (01) ==
LOC: ER 10:41
DX: R11.2 Nausea with vomiting, unspecified (principal); R10.9 Unspecified abdominal pain; R42 Dizziness and giddiness; E11.22 Type 2 diabetes mellitus with diabetic chronic kidney disease; I12.0 Hypertensive chronic kidney disease with stage 5 chronic kidney disease or end stage renal disease; N18.5 Chronic kidney disease, stage 5
CPT/HCPCS: 93005; 99284; 96361; 96374; 96375; 36415; 85025; 80053; 93010; J3010; J2765; J7040

== ENCOUNTER 2017-11-05 17:55 | Emergency (ER) | payer BC ==
[2017-11-05 19:06] LABS: HEMATOCRIT 31.1 % (37.9-51.0); HEMOGLOBIN 10.9 g/dL (13.5-17.0); MEAN CORPUSCULAR HEMOGLOBIN 27.4 pg (27.0-33.4); MEAN CORPUSCULAR HGB CONC 35.1 g/dL (32.0-36.0); MEAN CORPUSCULAR VOLUME 78 fl (80-97); PLATELET COUNT 313 10^3/uL (150-450); RED BLOOD COUNT 3.99 10^6/uL (4.35-5.55); RED CELL DISTRIBUTION WIDTH 13.4 % (11.5-14.0); WHITE BLOOD COUNT 8.9 10^3/uL (4.0-10.5)
--- NOTE | 2017-11-05 19:22 | ER Document Report ---
ED General - General Mode of Arrival: Ambulatory Information source: Patient TRAVEL OUTSIDE OF THE [place] IN LAST 30 DAYS: No <CHRISTIANO JOHNSON - Last Filed: 11/05/17 19:47> <EDOUARD VERGARA - Last Filed: 11/05/17 22:28> - General Chief Complaint: Nausea/Vomiting Stated Complaint: VOMITING,BACK PAIN Time Seen by Provider: 11/05/17 18:25 Notes: 37 y.o male with a PMHx of stage IV kidney disease, diabetes and HTN presents to the ED with chronic nausea and vomiting and chronic LT flank pain. He states that his vomiting was intermittent but has now become consistent for about a week. Patient's BP is 200/120 which he and his at bedside state is low for him. Patient has not started to do dialysis for his renal failure. (CHRISTIANO JOHNSON) - Related Data Allergies/Adverse Reactions: clarithromycin [From Biaxin] Allergy (Verified 11/05/17 17:57) Past Medical History - General Information source: Patient - Social History Smoking Status: Former Smoker - quit 2 years ago Chew tobacco use (# tins/day): No Frequency of alcohol use: None Drug Abuse: None Family History: CAD, DM Patient has suicidal ideation: No Patient has homicidal ideation: No - Past Medical History Cardiac Medical History: Reports: Hx Hypertension Endocrine Medical History: Reports: Hx Diabetes Mellitus Type 2 Renal/ Medical History: Denies: Hx Peritoneal Dialysis Musculoskeltal Medical History: Reports Hx Arthritis Past Surgical History: Reports: Other - EGD and colonoscopy recently <CHRISTIANO JOHNSON - Last Filed: 11/05/17 19:47> Review of Systems - Review of Systems Constitutional: No symptoms reported EENT: No symptoms reported Cardiovascular: No symptoms reported Respiratory: No symptoms reported Gastrointestinal: See HPI, Nausea, Vomiting Genitourinary: See HPI, Flank pain - LT Male Genitourinary: No symptoms reported Musculoskeletal: No symptoms reported Skin: No symptoms reported Hematologic/Lymphatic: No symptoms reported Neurological/Psychological: No symptoms reported -: Yes All other systems reviewed and negative <CHRISTIANO JOHNSON - Last Filed: 11/05/17 19:47> Physical Exam <CHRISTIANO JOHNSON - Last Filed: 11/05/17 19:47> <EDOUARD VERGARA - Last Filed: 11/05/17 22:28> - Vital signs Vitals: Temp Pulse Resp BP Pulse Ox 98.5 F 90 18 174/106 H 99 11/05/17 18:14 11/05/17 18:14 11/05/17 18:14 11/05/17 18:14 11/05/17 18:14 - Notes Notes: General: Alert, appears well. HEENT: Normocephalic. Atraumatic. PERRL. Extraocular movements intact. Oropharynx clear. Neck: Supple. Non-tender. Respiratory: No respiratory distress. Clear and equal breath sounds bilaterally. Cardiovascular: Regular rate and rhythm. Abdominal: Obese, soft. Non-tender. No distension. Normal Bowel Sounds. Back: No deformity or step off. Percussion over LT flank not tender. Back not tender to palpation. Extremities: Moves all four extremities. Upper extremities: Normal inspection. Normal ROM. Lower extremities: Normal inspection. No edema. Normal ROM. Neurological: Normal cognition. AAOx4. Normal speech. Psychological: Normal affect. Normal Mood. Skin: Warm. Dry. Normal color. (CHRISTIANO JOHNSON) Course - Laboratory Result Diagrams: 11/05/17 18:56 11/05/17 18:56 <CHRISTIANO JOHNSON - Last Filed: 11/05/17 19:47> - Laboratory Result Diagrams: 11/05/17 18:56 11/05/17 18:56 - EKG Interpretation by [place] EKG shows normal: Sinus rhythm, [place], QRS Complexes, ST-T Waves. abnormal: Intervals - QT interval Rate: Normal - 90 Rhythm: NSR [place]/QRS: LAHB/LAFB Voltage: Consistant with LVH P Waves: LAE When compared to previous EKG there are: No significant change <EDOUARD VERGARA - Last Filed: 11/05/17 22:28> - Re-evaluation Re-evalutation: 11/05/17 21:31 Patient's blood pressure is now down to 160/93, and his nausea is mostly controlled after receiving the hydralazine and Reglan IV. Patient states that Zofran used to help was nauseousness and he has been taking it since July but is not helping now. 11/05/17 22:07 The patient is supposed to be on sliding scale regular insulin and Lantus. His reports that he does take his medicines. He has not been checking his blood sugars recently because he did not feel good. This time the patient just wants to leave and go home and have his IV removed. The wants to know what were going to do about his chronic left flank pain that has been evaluated with multiple CT scans and no clear diagnosis. 11/05/17 22:26 The nurse just informed me that the patient refused the IV insulin that was ordered. His A1c is 11.9, his blood sugar was 418. I suspect the patient is upset because I informed them that I would not write narcotic prescriptions for his chronic pain. It is obvious the patient does not want to take his medications to control his blood pressure or his diabetes. (EDOUARD VERGARA) - Vital Signs Vital signs: Temp Pulse Resp BP Pulse Ox 98.5 F 90 20 160/93 H 97 11/05/17 18:14 11/05/17 18:14 11/05/17 21:03 11/05/17 21:03 11/05/17 21:03 - Laboratory Laboratory results interpreted by me: 11/05/17 11/05/17 11/05/17 18:56 18:56 18:56 RBC 3.99 L Hgb 10.9 L Hct 31.1 L MCV 78 L Eosinophils % (Manual) 8 H Absolute Eos (Manual) 0.7 H Sodium 135.3 L Chloride 96 L BUN 51 H Creatinine 4.23 H Est GFR ( Amer) 19 L Est GFR (Non-Af Amer) 16 L Glucose 418 H* Hemoglobin A1c % 11.9 H Alkaline Phosphatase 134 H Total Protein 6.2 L Albumin 3.1 L Urine Protein Urine Glucose (UA) Urine Blood 11/05/17 20:55 RBC Hgb Hct MCV Eosinophils % (Manual) Absolute Eos (Manual) Sodium Chloride BUN Creatinine Est GFR ( Amer) Est GFR (Non-Af Amer) Glucose Hemoglobin A1c % Alkaline Phosphatase Total Protein Albumin Urine Protein >=500 H Urine Glucose (UA) >=500 H Urine Blood MODERATE H Discharge <CHRISTIANO JOHNSON - Last Filed: 11/05/17 19:47> <EDOUARD VERGARA - Last Filed: 11/05/17 22:28> - Discharge Clinical Impression: Left flank pain, chronic, Uncontrolled hypertension, Chronic renal failure, stage 4 (severe) Hyperglycemia due to type 2 diabetes mellitus Qualifiers: Diabetes mellitus urban anthropologist insulin use: with urban anthropologist use Qualified Code(s): E11.65 - Type 2 diabetes mellitus with hyperglycemia Condition: Stable Disposition: HOME, SELF-CARE Additional Instructions: Flank Pain: We weren't able to prove an exact cause for your flank pain. Pain in the flank can be caused by a muscle strain or spasm. Sometimes a kidney stone causes pain, but can't be found on our tests. Infection in the kidney should be evident on a urine test. Early shingles can occasionally cause flank pain, without the rash that proves the diagnosis. On rare occasions, disease of the pancreas, aorta, spleen, or colon can create pain in the flank. At this time, there's no evidence of a dangerous condition, and it seems safe for you to be at home. If the pain goes away and does not come back, no further testing will be needed. If pain persists, or becomes more severe, we may need to repeat some tests or order additional new testing. Blood in the urine, urgency to urinate frequently, and pain that radiates to the groin can indicate a kidney stone. Fever may mean that the pain is due to infection, either of the kidney or the colon (diverticulitis). If your pain is early shingles, you should develop an eruption of blisters in the painful area within a few days. Call the doctor or return if you have pain that is spreading or becoming more severe, pain that does not resolve with time, fever, or any other new symptoms. Hyperglycemia (High Blood Sugar) You have an abnormally high blood sugar. Not all high blood sugar requires long-term treatment. Uncontrolled high blood sugar leads to early heart disease, strokes, nerve damage, eye damage, and kidney damage. Call the physician if there is faintness, excess sleepiness, or very rapid breathing. High Blood Pressure: When your blood pressure was taken today it was elevated. If left untreated, hypertension greatly enhances your risk for developing heart disease and strokes. Please don't ignore this problem. Chronic Pain Control: We do not manage chronic pain in the Emergency Department. We will try to appropriately help you through an acute flare of your chronic painful condition , but for on-going chronic pain that does not improve, you will need to see your private doctor or stage setting painter apprentice. We do not provide repeated medication management of chronic painful conditions. If you wish, we can provide the name of local pain management physicians. Take medications as prescribed for nausea and pain control. Be sure to check your sugars frequently and take your insulin. Be sure to check your blood pressure every day and take your blood pressure medications. Follow-up with a local medical doctor or the [facility] to help manage your diabetes and high blood pressure. RETURN TO THE EMERGENCY ROOM IF ANY NEW OR WORSENING SYMPTOMS. Prescriptions: Metoclopramide HCl [Reglan 10 mg Tablet] 1 - 2 tab PO ASDIR PRN #25 tablet PRN Reason: Tramadol HCl 50 mg PO Q6 PRN #20 tablet PRN Reason: Scribe Attestation: 11/05/17 21:26 I personally performed the services described in the documentation, reviewed and edited the documentation which was dictated to the scribe in my presence, and it accurately records my words and actions. (EDOUARD VERGARA) Scribe Documentation - Scribe Written by Jesus:: Jesus Parada 11/05/[id number] acting as scribe for :: Tracey <CHRSITIANO JOHNSON - Last Filed: 11/05/17 19:47>
[2017-11-05 19:24] LABS: ALANINE AMINOTRANSFERASE 35 U/L (21-72); ALBUMIN 3.1 g/dL (3.5-5.0); ALKALINE PHOSPHATASE 134 U/L (38-126); ANION GAP 11 (5-19); ASPARTATE AMINO TRANSFERASE 18 U/L (17-59); BILIRUBIN,DIRECT 0.3 mg/dL (0.0-0.4); BILIRUBIN,TOTAL 0.4 mg/dL (0.2-1.3); BLOOD UREA NITROGEN 51 mg/dL (7-20); CALCIUM 8.9 mg/dL (8.4-10.2); CARBON DIOXIDE 28 mmol/L (22-30); CHLORIDE 96 mmol/L (98-107); POTASSIUM 3.8 mmol/L (3.6-5.0); SODIUM 135.3 mmol/L (137-145); TOTAL PROTEIN 6.2 g/dL (6.3-8.2)
[2017-11-05] MEDS ORDERED: HYDRALAZINE HCL INJ/PF 20 MG/1 ML SDV IV ONE (19:26)
[2017-11-05] MEDS ORDERED: METOCLOPRAMIDE HCL INJ/PF 10 MG/2 ML SDV IV ONE (19:26)
[2017-11-05 19:30] LABS: ABSOLUTE LYMPHOCYTES# (MANUAL) 1.3 10^3/uL (0.5-4.7); ABSOLUTE MONOCYTES # (MANUAL) 0.4 10^3/uL (0.1-1.4); ABSOLUTE NEUTROPHILS# (MANUAL) 6.4 10^3/uL (1.7-8.2); BASOPHILS % (MANUAL) 1 % (0-2); EOSINOPHILS % (MANUAL) 8 % (0-6); LYMPHOCYTES % (MANUAL) 15 % (13-45); MONOCYTES % (MANUAL) 4 % (3-13); SEGMENTED NEUTROPHILS % (MAN) 72 % (42-78); TOTAL CELLS COUNTED 100
[2017-11-05 19:32] LABS: GLUCOSE 418 mg/dL (75-110); OVALOCYTES SLIGHT; PLATELET COMMENT ADEQUATE; POIKILOCYTOSIS SLIGHT
[2017-11-05 21:12] LABS: APPEARANCE,URINE CLEAR; BILIRUBIN,URINE NEGATIVE (NEGATIVE); COLOR,URINE YELLOW; GLUCOSE, URINE >=500 mg/dL (NEGATIVE); KETONES,URINE NEGATIVE (NEGATIVE); LEUKOCYTE ESTERASE,URINE NEGATIVE (NEGATIVE); NITRITE,URINE NEGATIVE (NEGATIVE); PROTEIN,URINE >=500 mg/dL (NEGATIVE); URINE SPECIFIC GRAVITY 1.016; UROBILINOGEN,URINE NEGATIVE mg/dL (<2.0)
[2017-11-05] MEDS ORDERED: INSULIN REG, HUMAN 100 UNIT/ML 3 ML VIAL (PYX) IV ONE (22:06)
[2017-11-05 22:28] VITALS: BP 178/98
--- NOTE | 2017-11-06 09:18 | EKG REPORT ---
SEVERITY:- ABNORMAL ECG - SINUS RHYTHM LEFT ATRIAL ABNORMALITY LEFT ANTERIOR FASCICULAR BLOCK LEFT VENTRICULAR HYPERTROPHY BORDERLINE PROLONGED QT INTERVAL : Confirmed by: Cindy Prater 06-Nov-2017 09:18:11
== END 2017-11-05 22:28 | disposition home or self-care (01) ==
LOC: ER 17:55
DX: R11.2 Nausea with vomiting, unspecified (principal); M54.9 Dorsalgia, unspecified; E11.65 Type 2 diabetes mellitus with hyperglycemia; I12.9 Hypertensive chronic kidney disease with stage 1 through stage 4 chronic kidney disease, or unspecified chronic kidney disease; E11.22 Type 2 diabetes mellitus with diabetic chronic kidney disease; N18.4 Chronic kidney disease, stage 4 (severe); Z87.891 Personal history of nicotine dependence
CPT/HCPCS: 93005; 99284; 36415; 83735; 85025; 80053; 81001; 83036; 93010; J0360; J2765; J1815

== ENCOUNTER 2018-02-28 06:30 | Day surgery (SDC) | payer SELFPAY ==
[~2018-02-28 06:30] MED LIST: CEFAZOLIN 1 GM/D5W RTU 1 GM/50 ML RTUPB IV PRN; DIAZEPAM 5 MG TABLET PO PRN; OXYCODONE-ACETAMINOPHEN 5-325 MG TABLET PO PRN
[2018-02-28 06:54] LABS: ABSOLUTE BASOPHILS # (AUTO) 0.1 10^3/uL (0.0-0.2); ABSOLUTE EOSINOPHILS # (AUTO) 0.3 10^3/uL (0.0-0.6); ABSOLUTE LYMPHOCYTES (AUTO) 1.2 10^3/uL (0.5-4.7); ABSOLUTE MONOCYTES (AUTO) 0.4 10^3/uL (0.1-1.4); ABSOLUTE NEUT (AUTO) 4.3 10^3/uL (1.7-8.2); BASOPHILS % (AUTO) 1.6 % (0-2); EOSINOPHILS % (AUTO) 5.5 % (0-6); HEMATOCRIT 26.6 % (37.9-51.0); HEMOGLOBIN 8.9 g/dL (13.5-17.0); LYMPHOCYTES % (AUTO) 19.2 % (13-45); MEAN CORPUSCULAR HEMOGLOBIN 26.7 pg (27.0-33.4); MEAN CORPUSCULAR HGB CONC 33.3 g/dL (32.0-36.0); MEAN CORPUSCULAR VOLUME 80 fl (80-97); MONOCYTES % (AUTO) 5.6 % (3-13); PLATELET COUNT 285 10^3/uL (150-450); RED BLOOD COUNT 3.32 10^6/uL (4.35-5.55); RED CELL DISTRIBUTION WIDTH 14.9 % (11.5-14.0); SEGMENTED NEUTROPHILS % (AUTO) 68.1 % (42-78); TOTAL CELLS COUNTED % (AUTO) 100 %; WHITE BLOOD COUNT 6.4 10^3/uL (4.0-10.5)
[2018-02-28 07:10] LABS: ANION GAP 13 (5-19); BLOOD UREA NITROGEN 79 mg/dL (7-20); CALCIUM 8.8 mg/dL (8.4-10.2); CARBON DIOXIDE 22 mmol/L (22-30); CHLORIDE 100 mmol/L (98-107); GLUCOSE 357 mg/dL (75-110); POTASSIUM 4.8 mmol/L (3.6-5.0); SODIUM 134.7 mmol/L (137-145)
--- NOTE | 2018-02-28 07:36 | RADIOLOGY REPORT (SQ) ---
EXAM DESCRIPTION: XR CHEST 1 VIEW COMPLETED DATE/TME: 02/28/2018 06:39 CLINICAL HISTORY: preop/surgery. COMPARISON: None. FINDINGS: Single frontal view of the chest. The cardiomediastinal silhouette has normal size and contour. No consolidation, pneumothorax, or pleural effusion. No displaced rib fractures identified. Upper abdominal soft tissues are unremarkable. IMPRESSION: 1. No acute pulmonary process identified.
[2018-02-28] MEDS ORDERED: LIDOCAINE 0.5% INJ-PF (5 MG/ML) 50 ML SDV ONE (07:58)
[2018-02-28] MEDS ORDERED: FENTANYL CITRATE INJ/PF 100 MCG/2 ML AMPUL ONE (08:03)
[2018-02-28] MEDS ORDERED: MIDAZOLAM 2 MG/2 ML INJ ONE (08:03)
[2018-02-28] MEDS ORDERED: BACITRACIN INJ 50,000 UNIT VIAL ONE (08:03)
--- NOTE | 2018-02-28 09:37 | Discharge Summary ---
Discharge Summary (SDC) - Discharge Final Diagnosis: #1 end-stage renal disease requiring hemodialysis. 2. Hypertension. 3. Diabetes mellitus. Date of Surgery: 02/28/18 Discharge Date: 02/28/18 Condition: Fair Treatment or Instructions: Discharge home [after recovery per ASU criteria]. Diet , [renal],as tolerated, when fully awake advance as tolerated. Activities within moderation encouraged. Follow up in my office by appointment in about [1 week]. Call for appointment. Leave wounds [covered], [keep clean and dry, until office visit in 1 week]. Hold of on school/work [until evaluation in office]. Meds per med rec. Especially important to stay seated positions. Flat for 48 hours. Start hemodialysis as soon as possible. Dr. Freedman aware of catheter in place. May shower [in 48 hrs], [try to keep operated area as dry as possible]. Discharge Diet: Other (Comments) - Renal. Respiratory Treatments at Home: Deep Breathing/Coughing Discharge Activity: Activity As Tolerated Report the Following to Your Physician Immediately: Shortness of Breath, Unusual Bleeding
--- NOTE | 2018-02-28 09:40 | Operative Report ---
Operative Report DATE OF SURGERY: 02/28/18 PREOPERATIVE DIAGNOSIS: #1 end-stage renal disease requiring hemodialysis. 2. Hypertension. 3. Diabetes mellitus. POSTOPERATIVE DIAGNOSIS: #1 end-stage renal disease requiring hemodialysis. 2. Hypertension. 3. Diabetes mellitus. OPERATION: 1. Ultrasound evaluation of right internal jugular vein. 2. Insertion of PermCath via right internal jugular vein under real-time ultrasound guidance. 3. Angiogram and interpretation. SURGEON: SANDY ROQUE CAD PROGRAMMER: None. ANESTHESIA: Moderate Sedation TISSUE REMOVED OR ALTERED: Not applicable. COMPLICATIONS: None. ESTIMATED BLOOD LOSS: 5 mL. INTRAOPERATIVE FINDINGS: Satisfactory right internal jugular vein to support permacatheter, estimated 1.5 cm in diameter. Easy egress of blood and ingress of heparinized solution through both ports. Satisfactory position. Satisfactory flow of contrast through the right atrium, the right atrium seems on the large side. Through the right ventricle and pulmonary outflow tract. PROCEDURE: After obtaining informed consent, the patient was taken to the [Laundry Marker Supervisor] and positioned supine. The [right neck] and chest were prepared with chlorhexidine and draped out with sterile linen. After the " universal timeout", in which it was verified that the patient continued to receive antibiotic, the procedure commenced. A steriley sheathed ultrasound probe was used to evaluate the [ right internal jugular] vein. Local anesthesia was infiltrated adjacent to the probe. Access into the [right internal jugular] vein was obtained using a micropuncture needle, followed by micropuncture wire and then a micropuncture catheter. This was followed by introduction of a 0.035 guidewire the tip of which was placed down into the inferior vena cava . A 27 cm long [perm catheter ] was now positioned over the chest and an exit site marked and locally anesthetized ,the catheter was placed between the 2 incisions. Proximally, the catheter was now positioned using a peel-away sheath, after dilation. Easy ingress of heparinized solution and egress of blood obtained through both ports. A completion angiogram was done by injecting contrast. The findings were as dictated. The neck incision was now closed using interrupted 3-0 PDS to the subcutaneous tissues, the catheter was anchored at the exit site using 3- 0 PDS. A Biopatch device was now placed adjacent to the catheter. Dressings were applied and the procedure concluded. Exposure time: [0.3 minutes]. Exposure: [18.1 Jesica hartley. Contrast amount: [5 mL] of [id number] low osmolality. Copies of the dictated operative report for Dr. Sandy Kwong MD.concluded. Copies of the dictated operative report for Dr. Sandy Kwong MD.
[2018-02-28 11:05] VITALS: BP 193/123
--- NOTE | 2018-02-28 12:50 | RADIOLOGY REPORT (SQ) ---
EXAM DESCRIPTION: TUNNELED CENTRAL LINE COMPLETED DATE/TIME: 02/28/2018 9:23 am REASON FOR STUDY: N18.5 CKD N18.5 CHRONIC KIDNEY DISEASE, STAGE 5 COMPARISON: None. FLUOROSCOPY TIME: 0.3 minute 18 images saved to PACS. TECHNIQUE: Intra-operative images acquired during surgical procedure to evaluate progress. NUMBER OF IMAGES: 18 LIMITATIONS: None. FINDINGS: Selected images from right Port-A-Cath placement. Tip overlies cavoatrial junction. IMPRESSION: IMAGE(S) OBTAINED DURING PROCEDURE. COMMENT: Quality ID [id number]: Final reports for procedures using fluoroscopy that document radiation exp osure indices, or exposure time and number of fluorographic images (if radiation exposure indices are not available) Please consult full operative report of the attending physician for description of the procedure. TECHNICAL DOCUMENTATION: JOB ID: [id number] [employer] All Rights Reserved Reading location - IP/workstation name: [email or web address]
== END 2018-02-28 10:55 | disposition home or self-care (01) ==
LOC: CCL 06:30
PROVIDERS: ATTEND Surgery
DX: I12.0 Hypertensive chronic kidney disease with stage 5 chronic kidney disease or end stage renal disease (principal); E11.9 Type 2 diabetes mellitus without complications; D63.1 Anemia in chronic kidney disease; N18.6 End stage renal disease; Z99.2 Dependence on renal dialysis; G89.29 Other chronic pain; R10.9 Unspecified abdominal pain; E11.43 Type 2 diabetes mellitus with diabetic autonomic (poly)neuropathy; E11.21 Type 2 diabetes mellitus with diabetic nephropathy; E11.319 Type 2 diabetes mellitus with unspecified diabetic retinopathy without macular edema; R31.29 Other microscopic hematuria; E55.9 Vitamin D deficiency, unspecified; R60.0 Localized edema; Z79.899 Other long term (current) drug therapy; Z79.4 Long term (current) use of insulin; H54.8 Legal blindness, as defined in USA
CPT/HCPCS: 36415; 85025; 80048; 36558; 76937; 77001; 71045; C1752; Q9967; J2250; J3490 ×2; J0690; J3010; J1644

== ENCOUNTER → 2018-03-01 | Outpatient (CLI) | payer SELFPAY ==
[2018-03-01 18:04] LABS: ALBUMIN 2.9 g/dL (3.5-5.0); PHOSPHORUS 6.3 mg/dL (2.5-4.5)
[2018-03-03 05:41] LABS: HEPATITIS C VIRUS AB <0.1 s/co ratio (0.0-0.9)
[2018-03-03 08:09] LABS: HEPATITIS B CORE AB TOT Negative (Negative); HEPATITIS B SURFACE AB QUANT <3.1 mIU/mL (Immunity>9)
== END ==
LOC: OD 17:01
PROVIDERS: ATTEND Internal Medicine Nephrology
DX: E11.22 Type 2 diabetes mellitus with diabetic chronic kidney disease (principal); N18.5 Chronic kidney disease, stage 5; E11.21 Type 2 diabetes mellitus with diabetic nephropathy; R80.9 Proteinuria, unspecified; E55.9 Vitamin D deficiency, unspecified
CPT/HCPCS: 36415; 82040; 82306; 83970; 84100; 86317; 86704; 86803; 86804

== ENCOUNTER 2018-03-14 12:21 | Observation (INO) | payer SELFPAY ==
[~2018-03-14 12:21] MED LIST changes: -CEFAZOLIN 1 GM/D5W RTU 1 GM/50 ML RTUPB IV PRN; -DIAZEPAM 5 MG TABLET PO PRN; +LIDOCAINE 0.5% INJ-PF (5 MG/ML) 50 ML SDV SUBCUT PRN; +NORMAL SALINE 1000 ML (RENAL PATIENTS) IV PRN; -OXYCODONE-ACETAMINOPHEN 5-325 MG TABLET PO PRN
[2018-03-14] MEDS ORDERED: LIDOCAINE 2% INJ-PF (20 MG/ML) 10 ML AMPUL ONE (14:08)
[2018-03-14] MEDS ORDERED: ONDANSETRON HCL INJ/PF 4 MG/2 ML SDV ONE (14:08)
[2018-03-14] MEDS ORDERED: MIDAZOLAM 2 MG/2 ML INJ ONE (14:08)
[2018-03-14] MEDS ORDERED: FENTANYL CITRATE INJ/PF 100 MCG/2 ML AMPUL ONE (14:08)
[2018-03-14] MEDS ORDERED: PROPOFOL INJ 200 MG/20 ML VIAL IV ONE (14:09)
[2018-03-14] MEDS ORDERED: BUPIVACAINE HCL 0.5 % INJ/PF 30 ML SDV ONE (14:10)
[2018-03-14] MEDS ORDERED: LIDOCAINE 1% INJ-PF (10 MG/ML) 30 ML SDV ONE (14:11)
[2018-03-14] MEDS ORDERED: LIDOCAINE 0.5% INJ-PF (5 MG/ML) 50 ML SDV ONE (14:11)
[2018-03-14] MEDS ORDERED: HEPARIN SOD (PORCINE) 1,000 UNIT/ML 10 ML VIAL ONE (14:11)
[2018-03-14] MEDS ORDERED: BACITRACIN INJ 50,000 UNIT VIAL ONE (14:11)
[2018-03-14 14:43] LABS: POTASSIUM 4.1 mmol/L (3.6-5.0)
[2018-03-14] MEDS ORDERED: INSULIN REG, HUMAN 100 UNIT/ML 3 ML VIAL (PYX) ONE (16:00)
--- NOTE | 2018-03-14 19:24 | EKG REPORT ---
SEVERITY:- ABNORMAL ECG - SINUS RHYTHM LEFT ANTERIOR FASCICULAR BLOCK NONSPECIFIC T ABNORMALITIES, LATERAL LEADS : Confirmed by: Frankie Gordon MD 14-Mar-2018 19:24:28
[2018-03-14 19:56] LABS: HEMATOCRIT 24.6 % (37.9-51.0); HEMOGLOBIN 8.5 g/dL (13.5-17.0); MEAN CORPUSCULAR HEMOGLOBIN 27.8 pg (27.0-33.4); MEAN CORPUSCULAR HGB CONC 34.3 g/dL (32.0-36.0); MEAN CORPUSCULAR VOLUME 81 fl (80-97); PLATELET COUNT 268 10^3/uL (150-450); RED BLOOD COUNT 3.04 10^6/uL (4.35-5.55); RED CELL DISTRIBUTION WIDTH 15.1 % (11.5-14.0); WHITE BLOOD COUNT 8.4 10^3/uL (4.0-10.5)
[2018-03-14 20:29] LABS: ANION GAP 7 (5-19); BLOOD UREA NITROGEN 39 mg/dL (7-20); CALCIUM 8.3 mg/dL (8.4-10.2); CARBON DIOXIDE 31 mmol/L (22-30); CHLORIDE 98 mmol/L (98-107); GLUCOSE 283 mg/dL (75-110); SODIUM 135.5 mmol/L (137-145)
[2018-03-14] MEDS: LOSARTAN POTASSIUM 50 MG TABLET PO ONE ×2 (20:34→22:13)
[2018-03-14] MEDS: METOPROLOL SUCCINATE 25 MG TAB.SR.24H PO ONE ×2 (20:34→22:14)
[2018-03-14] MEDS: HYDROCHLOROTHIAZIDE 12.5 MG TABLET PO ONE ×2 (20:34→22:13)
[2018-03-14] MEDS: BUMETANIDE 1 MG TABLET PO ONE ×2 (20:35→22:13)
[2018-03-14] MEDS ORDERED: DEXTROSE 50%-WATER 25 GM/50 ML DISP.SYRIN IV PRN ×2 (21:48)
[2018-03-14] MEDS ORDERED: DEXTROSE 40% GEL 15 GM TUBE PO PRN ×2 (21:48)
[2018-03-14] MEDS ORDERED: GLUCAGON,HUMAN RECOMB 1 MG INJ IM PRN (21:48)
[2018-03-14] MEDS ORDERED: INSULIN LISPRO 100 UNIT/ML 3 ML VIAL SUBCUT PRN (21:48)
[2018-03-14] MEDS ORDERED: HYDRALAZINE HCL INJ/PF 20 MG/1 ML SDV IV PRN (21:50)
[2018-03-15] MEDS ORDERED: TRAMADOL HCL 50 MG TABLET PO PRN (01:11)
[2018-03-15] MEDS ORDERED: INSULIN LISPRO 100 UNIT/ML 3 ML VIAL SUBCUT PRN (01:11)
[2018-03-15] MEDS ORDERED: ONDANSETRON 4 MG TAB.RAPDIS PO PRN ×2 (01:11→07:17)
[2018-03-15] MEDS ORDERED: [UNRECOGNIZED DRUG - OTHER] MC PRN (01:11)
[2018-03-15] MEDS ORDERED: LANCETS MC PRN (01:11)
[2018-03-15] MEDS ORDERED: [UNRECOGNIZED DRUG - OTHER] MC PRN (01:14)
--- NOTE | 2018-03-15 01:23 | PDOC CONSULTATION ---
Consultation Consult Date: 03/14/18 Attending physician:: Dr. Marshall Consult reason:: management of comorbidities History of Present Illness Admission Date/PCP: 03/14/18 17:55 Dr. Freedman Patient complains of: Uncontrolled hypertension History of Present Illness: CECILIO ALCAZAR JR is a 38 year old male ESRD on hemodialysis who came initially as an outpatient for an AV fistula done by Dr.Williams Marshall, unfortunately was found elevated blood pressure, 207/127 and the procedure was canceled. Patient was admitted to have under control his blood pressure and blood sugars and have the procedure done in the morning. Has fever, chills, nausea, vomiting, shortness of breath, abdominal pain. Complain of headache. Past Medical History Cardiac Medical History: Reports: Hypertension Denies: Myocardial Infarction Pulmonary Medical History: Denies: Asthma, Bronchitis, Chronic Obstructive Pulmonary Disease (COPD), Pneumonia Neurological Medical History: Denies: Seizures Endocrine Medical History: Reports: Diabetes Mellitus Type 2 Renal/ Medical History: Reports: End Stage Renal Disease Musculoskeltal Medical History: Reports: Arthritis Hematology: Reports: Anemia Past Surgical History Past Surgical History: Reports: Other - EGD and colonoscopy recently Permacath placement Social History Information Source: Patient Smoking Status: Former Smoker Frequency of Alcohol Use: Rare Hx Recreational Drug Use: No Drugs: None Family History Family History: CAD, DM Parental Family History Reviewed: No - as above Children Family History Reviewed: NA Sibling(s) Family History Reviewed.: NA Medication/Allergy Home Medications: Metoprolol Succinate [Toprol Xl 25 mg Tab.sr] 25 mg PO DAILY 07/30/17 Alcohol Antiseptic Pads [Alcohol Prep Pads] 1 each TP QID #100 med..pad Blood Sugar Diagnostic [Accu-Chek Guide Test Strip] 1 each MC QID #100 strip Blood-Glucose Meter [Accu-Chek Guide Monitor System] 1 each QID #1 each 08/04 Insulin Glargine,Hum.rec.anlog [Lantus Insulin 100 Unit/mL] 30 unit SUBCUT QHS # 3 insuln.pen 08/04/17 Insulin Lispro [Humalog Insulin (Lispro) 100 unit/mL] 0 - 12 unit SUBCUT ACHSP PRN #100 unit 08/04/17 Lancing Device/Lancets [Accu-Chek Softclix Lancet Kit] 1 kit ASDIR PRN #1 kit 08/04/17 Syring-Needl,Disp,Insul,0.3 ml [Insulin Syringe 0.3 mL] 1 syr MC QIDP PRN #100 syringe 08/04/17 Tramadol HCl [Ultram 50 mg Tablet] 50 mg PO Q8HP PRN #12 tablet 08/04/17 Losartan/Hydrochlorothiazide [Hyzaar 50-12.5 Tablet] 1 each PO DAILY #10 tablet 09/24/17 Ondansetron [Zofran Odt 4 mg Tablet] 1 - 2 tab PO Q4H PRN #15 tab.rapdis Bumetanide [Bumex 1 mg Tablet] 8 mg PO BID 02/28/18 Allergies/Adverse Reactions: clarithromycin [From Biaxin] Allergy (Verified 02/28/18 06:50) Review of Systems Review of Systems: As outlined in the HPI, others negative Physical Exam Vital Signs: Temp Pulse Resp BP Pulse Ox 99.5 F 94 16 207/127 H 98 03/14/18 14:00 03/14/18 14:00 03/14/18 14:00 03/14/18 14:00 03/14/18 14:00 Intake & Output 03/13/18 03/14/18 03/15/18 06:59 06:59 06:59 Intake Total 0 Balance 0 Weight 104.33 kg General appearance: PRESENT: no acute distress Head exam: PRESENT: atraumatic Eye exam: PRESENT: EOMI, PERRLA Mouth exam: PRESENT: moist, neck supple Respiratory exam: PRESENT: clear to auscultation juan pablo, unlabored Cardiovascular exam: PRESENT: RRR GI/Abdominal exam: PRESENT: normal bowel sounds, soft Extremities exam: PRESENT: +1 edema Musculoskeletal exam: PRESENT: ambulatory, normal inspection Neurological exam: PRESENT: alert, oriented to person, oriented to place, oriented to time, CN II-XII grossly intact Skin exam: PRESENT: intact Additional comments: Right permacath in place. Results Laboratory Results: 03/14/18 19:48 03/14/18 19:48 03/14/18 03/14/18 03/14/18 14:00 19:48 19:48 WBC 8.4 RBC 3.04 L Hgb 8.5 L Hct 24.6 L MCV 81 MCH 27.8 MCHC 34.3 RDW 15.1 H Plt Count 268 Sodium 135.5 L Potassium 4.1 4.0 Chloride 98 Carbon Dioxide 31 H Anion Gap 7 BUN 39 H Creatinine 5.23 H Est GFR ( Amer) 15 L Est GFR (Non-Af Amer) 12 L Glucose 303 H 283 H Calcium 8.3 L Assessment & Plan - Diagnosis (1) Hypertensive urgency Is this a current diagnosis for this admission?: Yes Plan: Home antihypertensive medication has been resumed with losartan, hydrochlorothiazide, metoprolol and Bumex. Hydralazine 10 mg IV every 6 hours as needed placed. Unknown compliance with his home medications. (2) Uncontrolled type 2 diabetes mellitus Is this a current diagnosis for this admission?: Yes Plan: Will resume his home Lantus. Accu-Cheks q. before meals and at bedtime, insulin lispro sliding scale and hypoglycemia protocol. (3) End stage renal disease Is this a current diagnosis for this admission?: Yes Plan: We will place a consult for Dr. Freedman - Time Time Spent: 30 to 50 Minutes
[2018-03-15] MEDS ORDERED: INSULIN LISPRO 100 UNIT/ML 3 ML VIAL SUBCUT ONE (07:00)
--- NOTE | 2018-03-15 09:17 | PDOC PROGRESS REPORT ---
Subjective Progress Note for:: 03/15/18 Subjective:: Patient appears comfortable, has no complaints except being hungry from n.p.o. order His blood pressure is fluctuating and anesthesia are okay with giving him his home p.o. medicines He is on hydralazine as needed as well His glucose levels are elevated but he actually thinks it is better than home readings Reason For Visit: CONTROL OF HYPERTENSION Physical Exam Vital Signs: Temp Pulse Resp BP Pulse Ox 98.0 F 81 16 196/110 H 98 03/15/18 08:05 03/15/18 08:05 03/15/18 08:05 03/15/18 08:05 03/15/18 08:05 Intake & Output 03/14/18 03/15/18 03/16/18 06:59 06:59 06:59 Intake Total 670 Balance 670 Weight 230 lb 0.13 oz General appearance: PRESENT: no acute distress, cooperative Head exam: PRESENT: atraumatic, normocephalic Eye exam: PRESENT: PERRLA. ABSENT: conjunctival injection Ear exam: ABSENT: bleeding, drainage Mouth exam: PRESENT: moist, neck supple Throat exam: ABSENT: post pharyngeal erythema Neck exam: ABSENT: meningismus, tenderness, thyromegaly Respiratory exam: PRESENT: clear to auscultation juan pablo, unlabored. ABSENT: accessory muscle use Cardiovascular exam: PRESENT: RRR, +S1, +S2. ABSENT: diastolic murmur, systolic murmur Pulses: PRESENT: normal radial pulses Vascular exam: PRESENT: normal capillary refill GI/Abdominal exam: PRESENT: normal bowel sounds, soft. ABSENT: mass, tenderness Rectal exam: PRESENT: deferred Extremities exam: PRESENT: pedal edema Musculoskeletal exam: ABSENT: deformity Neurological exam: PRESENT: alert, altered, awake, oriented to person, oriented to time, oriented to situation. ABSENT: motor sensory deficit Psychiatric exam: PRESENT: appropriate affect. ABSENT: homicidal ideation, suicidal ideation Results Laboratory Results: 03/14/18 19:48 03/14/18 19:48 03/14/18 03/14/18 03/14/18 14:00 19:48 19:48 WBC 8.4 RBC 3.04 L Hgb 8.5 L Hct 24.6 L MCV 81 MCH 27.8 MCHC 34.3 RDW 15.1 H Plt Count 268 Sodium 135.5 L Potassium 4.1 4.0 Chloride 98 Carbon Dioxide 31 H Anion Gap 7 BUN 39 H Creatinine 5.23 H Est GFR ( Amer) 15 L Est GFR (Non-Af Amer) 12 L Glucose 303 H 283 H Calcium 8.3 L Assessment & Plan - Diagnosis (1) Hypertensive urgency Is this a current diagnosis for this admission?: Yes (2) Anemia in chronic kidney disease (CKD) Qualifiers: Chronic kidney disease stage: stage 4 (severe) Qualified Code(s): N18.4 - Chronic kidney disease, stage 4 (severe); D63.1 - Anemia in chronic kidney disease; D63.1 - Anemia in chronic kidney disease Is this a current diagnosis for this admission?: Yes (3) End stage renal disease Is this a current diagnosis for this admission?: Yes (4) Hyperglycemia due to type 2 diabetes mellitus Qualifiers: 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 Monitor blood pressure. Anesthesia are okay with his p.o. medications. He is scheduled for AV fistula procedure later this afternoon. Uncontrolled diabetes: His A1c lost October was above 11. His glucose levels here in the hospital of significantly elevated but he thinks it is a lot better than home readings. Continue Lantus and NovoLog scale. Monitor blood glucose. End-stage renal disease on hemodialysis: He is scheduled for AV fistula procedure this afternoon. His usual dialysis days are Wednesday and Wednesday. He is scheduled dialysis today at 11 AM which he will miss it. He may need to have dialysis in the hospital.
[2018-03-15] MEDS ORDERED: METOPROLOL SUCCINATE 25 MG TAB.SR.24H PO SCH (10:00)
[2018-03-15] MEDS ORDERED: BLOOD GLUCOSE METER MC SCH (10:00)
[2018-03-15] MEDS ORDERED: (PENDING PHARMACY ID) (Losartan/Hydrochlorothiazide [Hyzaar 50-12.5 Tablet] 1 EACH) PO SCH (10:00)
[2018-03-15] MEDS ORDERED: ALCOHOL ANTISEPTIC PADS TP SCH (10:00)
[2018-03-15] MEDS ORDERED: HYDROCHLOROTHIAZIDE 12.5 MG TABLET PO SCH (10:00)
[2018-03-15] MEDS ORDERED: BLOOD SUGAR DIAGNOSTIC MC SCH (10:00)
[2018-03-15] MEDS ORDERED: LOSARTAN POTASSIUM 50 MG TABLET PO SCH (10:00)
[2018-03-15] MEDS ORDERED: BUMETANIDE 1 MG TABLET PO SCH (10:00)
[2018-03-15 10:32] LABS: ANION GAP 10 (5-19); BLOOD UREA NITROGEN 42 mg/dL (7-20); CALCIUM 8.4 mg/dL (8.4-10.2); CARBON DIOXIDE 27 mmol/L (22-30); CHLORIDE 100 mmol/L (98-107); GLUCOSE 283 mg/dL (75-110); SODIUM 137.2 mmol/L (137-145)
[2018-03-15] MEDS ORDERED: LIDOCAINE 1% INJ-PF (10 MG/ML) 30 ML SDV ONE (13:00)
[2018-03-15] MEDS ORDERED: BUPIVACAINE HCL 0.5 % INJ/PF 30 ML SDV ONE (13:00)
[2018-03-15] MEDS ORDERED: HEPARIN SOD (PORCINE) 1,000 UNIT/ML 10 ML VIAL ONE (13:01)
[2018-03-15] MEDS ORDERED: LIDOCAINE 0.5% INJ-PF (5 MG/ML) 50 ML SDV ONE (13:01)
[2018-03-15] MEDS ORDERED: BACITRACIN INJ 50,000 UNIT VIAL ONE (13:01)
[2018-03-15] MEDS ORDERED: NITROGLYCERIN/D5W 0 MG/0 ML RTUINJ IV ONE (13:03)
--- NOTE | 2018-03-15 13:50 | PDOC PROGRESS REPORT ---
Subjective Progress Note for:: 03/15/18 Subjective:: This patient was admitted for control of blood pressure so that surgery could be done. He has end-stage renal disease, he is on hemodialysis via a permacatheter is desirable to transition over to a fistula in order to avoid long-term complications of catheter use. He is familiar with these as are his and they are agreeable to proceeding. He has specifically requested that the right upper extremity be used. He understands the risks of the procedure to include infection, bleeding, heart, lung complications, injury to other structures, decreased hand function. It is to be noted that he does have muscle wasting in both hands but most prominently on the right in which there is thenar and hyperthenar wasting.. Also some Ape hand deformity consistent with neuropathy. Reason For Visit: CONTROL OF HYPERTENSION Physical Exam Vital Signs: Temp Pulse Resp BP Pulse Ox 98.5 F 75 16 158/97 H 100 03/15/18 12:30 03/15/18 12:30 03/15/18 12:30 03/15/18 12:30 03/15/18 12:30 Intake & Output 03/14/18 03/15/18 03/16/18 06:59 06:59 06:59 Intake Total 670 Balance 670 Weight 104.33 kg Results Laboratory Results: 03/14/18 19:48 03/15/18 09:57 03/14/18 03/14/18 03/14/18 14:00 19:48 19:48 WBC 8.4 RBC 3.04 L Hgb 8.5 L Hct 24.6 L MCV 81 MCH 27.8 MCHC 34.3 RDW 15.1 H Plt Count 268 Sodium 135.5 L Potassium 4.1 4.0 Chloride 98 Carbon Dioxide 31 H Anion Gap 7 BUN 39 H Creatinine 5.23 H Est GFR ( Amer) 15 L Est GFR (Non-Af Amer) 12 L Glucose 303 H 283 H Calcium 8.3 L 03/15/18 09:57 WBC RBC Hgb Hct MCV MCH MCHC RDW Plt Count Sodium 137.2 Potassium 4.0 Chloride 100 Carbon Dioxide 27 Anion Gap 10 BUN 42 H Creatinine 5.64 H Est GFR ( Amer) 14 L Est GFR (Non-Af Amer) 11 L Glucose 283 H Calcium 8.4 Assessment & Plan - Plan Summary Plan Summary: To proceed with arteriovenous fistula insertion. In either upper extremity, the right upper extremity has been selected. Based on vein mapping probably a brachiocephalic fistula would be the best first option.
[2018-03-15] MEDS ORDERED: MIDAZOLAM 2 MG/2 ML INJ ONE (13:56)
[2018-03-15] MEDS ORDERED: FENTANYL CITRATE INJ/PF 100 MCG/2 ML AMPUL ONE (13:56)
[2018-03-15] MEDS ORDERED: PROPOFOL INJ 200 MG/20 ML VIAL IV ONE (13:56)
[2018-03-15] MEDS ORDERED: CEFAZOLIN INJ 1 GM VIAL ONE (14:54)
[2018-03-15] MEDS ORDERED: MEPERIDINE HCL/PF INJ 25 MG/1 ML DISP.SYRIN IV PRN (15:17)
[2018-03-15] MEDS ORDERED: MORPHINE SULFATE 10 MG/ML INJ IV PRN (15:17)
[2018-03-15] MEDS ORDERED: FENTANYL CITRATE INJ/PF 100 MCG/2 ML AMPUL IV PRN ×3 (15:17)
[2018-03-15] MEDS ORDERED: ONDANSETRON HCL INJ/PF 4 MG/2 ML SDV IV PRN (15:17)
[2018-03-15] MEDS ORDERED: DIPHENHYDRAMINE HCL 50 MG/ML VIAL IV PRN (15:17)
[2018-03-15] MEDS ORDERED: PROMETHAZINE HCL INJ 25 MG/1 ML VIAL IV PRN ×2 (15:17)
--- NOTE | 2018-03-15 16:06 | Discharge Summary ---
Discharge Summary (SDC) - Discharge Final Diagnosis: #[address] 2. End-stage renal disease on hemodialysis. 3. Diabetes mellitus type 2. 4. Hypertension. Date of Surgery: 03/15/18 Discharge Date: 03/15/18 Condition: Fair Treatment or Instructions: Discharge home [after recovery per ASU criteria]. Diet , [renal],as tolerated, when fully awake advance as tolerated. Activities within moderation encouraged. Follow up in my office by appointment in about [1 week]. Call for appointment. Leave wounds [covered], [keep clean and dry, until office visit in 1 week]. Hold of on school/work [until evaluation in office]. Meds per med rec. Percocet. May shower [in 48 hrs], [try to keep operated area as dry as possible]. Discharge Diet: Other (Comments) - Renal. Respiratory Treatments at Home: Deep Breathing/Coughing Discharge Activity: Activity As Tolerated Report the Following to Your Physician Immediately: Shortness of Breath, Unusual Bleeding
--- NOTE | 2018-03-15 16:13 | Operative Report ---
Operative Report DATE OF SURGERY: 03/15/18 PREOPERATIVE DIAGNOSIS: #[address] 2. End-stage renal disease on hemodialysis. 3. Diabetes mellitus type 2. 4. Hypertension. POSTOPERATIVE DIAGNOSIS: #[address] 2. End-stage renal disease on hemodialysis. 3. Diabetes mellitus type 2. 4. Hypertension. OPERATION: Insertion of the transposed cephalic to radial arteriovenous fistula right forearm. 1ST CERTIFIED HYPERBARIC TECHNICIAN: SANDY BAE 2ND Veterans' Counselor: BRADLEY HENDERSON ANESTHESIA: LMAC TISSUE REMOVED OR ALTERED: Not applicable. COMPLICATIONS: None. ESTIMATED BLOOD LOSS: 5 mL. INTRAOPERATIVE FINDINGS: Of an extremely satisfactory cephalic vein easily accommodating of 3.5 and probably would have done up to 5 mm. The radial artery and the forearm was selected about nursing home up for maximal size versus accessibility. It turned out to be on the small size the internal diameter estimated to be about 2 mm. Was some spasm in the artery. Satisfactory anastomosis was constructed and the Doppler and palpable parameters were satisfactory. These did did require a fair amount of manipulation including removing subcutaneous tissues. Also the closure over the vein itself was done only in the subcuticular layer to allow for the expanded and dilated arteriovenous fistula. After the procedure a bruit was nicely auscultated table through the closed skin. Hopefully this should have at least 80% chance of long-term success. PROCEDURE: Operative Report PROCEDURE: After reviewing the procedure with the patient, he was taken to the operating room. The patient was sedated and the patient selected right upper extremity] prepared with chlorhexidine and draped out with sterile linen. After the "" universal timeout", in which it was verified that the patient [ received IV antibiotics] the procedure commenced. The sterilely sheathed ultrasound probe was used to evaluate the left venous and arterial systems, pertinent to the previously done vein mapping. Local anesthesia was infiltrated and a longitudinal incision made over the mid forearm , over the most distal reasonable looking radial artery. Dissection proceeded through the subcutaneous tissues down to the radial artery. This was dissected out proximally and distally for about 2 cm. . Rubber loops were placed on either end. A separate incision was now made over the cephalic vein the cephalic vein was now dissected out for a distance of about 6 cm. The patient was given 2500 units of heparin intravenously. The cephalic vein was transected and irrigated with heparinized solution. The distal branches were clipped Coronary dilators were accepted [up to 3.5 mm]. The artery was controlled proximally and distally with rubber loops. The vein was transposed into the arterial incision using a hemostat. An arteriotomy approximately 1.2 cm in length was made, the artery was irrigated proximally and distally with heparinized solution. The transected vein was now anastomosed end to end to side into the brachial artery. This was done using a continuous suture of 6-0 Prolene. Controls of the fistula were now released and it was analyzed using a Doppler probe. Hemostasis was secured once optimal function was assured, the wound was irrigated with antibiotic containing solution and closed. Closure was done using interrupted 3-0 PDS for the subcutaneous tissues. The skin was closed, in either wound, using a continuous subcutaneous suture of 4-0 Monocryl which was reinforced with Steri-Strips over benzoin. I then left the operative field and returned with a stethoscope covered with a sterile Tegaderm dressing. This allowed external auscultation of the fistula. Auscultation was [ satisfactory]. The procedure was concluded by applying a Kerlix dressing over the surgical site. DICTATING PHYSICIAN: SANDY BAE M.D.
[2018-03-15] MEDS ORDERED: DEXTROSE 50%-WATER 25 GM/50 ML DISP.SYRIN IV ONE (16:29)
[2018-03-15 20:15] VITALS: BP 150/80
[2018-03-15] MEDS ORDERED: OXYCODONE-ACETAMINOPHEN 5-325 MG TABLET PO ONE (21:30)
[2018-03-15] MEDS ORDERED: INSULIN GLARGINE,HUM.REC.ANLOG 300 UNIT/3 ML INSULN.PEN SUBCUT SCH (22:00)
== END 2018-03-15 22:50 | disposition home or self-care (01) ==
LOC: OROUT 12:21 → 5 17:55 → INOR 18:13 → 5 20:47
PROVIDERS: ADMIT Surgery; ATTEND Surgery
PROC: 031B09F Bypass Right Radial Artery to Lower Arm Vein with Autologous Venous Tissue, Open Approach (ICD-10-PCS; principal; 2018-03-14)
DX: E11.65 Type 2 diabetes mellitus with hyperglycemia (principal); E11.22 Type 2 diabetes mellitus with diabetic chronic kidney disease; E11.43 Type 2 diabetes mellitus with diabetic autonomic (poly)neuropathy; I16.0 Hypertensive urgency; I12.0 Hypertensive chronic kidney disease with stage 5 chronic kidney disease or end stage renal disease; N18.6 End stage renal disease; D63.1 Anemia in chronic kidney disease; Z99.2 Dependence on renal dialysis; R60.0 Localized edema; M62.542 Muscle wasting and atrophy, not elsewhere classified, left hand; M62.541 Muscle wasting and atrophy, not elsewhere classified, right hand; E11.319 Type 2 diabetes mellitus with unspecified diabetic retinopathy without macular edema; E11.21 Type 2 diabetes mellitus with diabetic nephropathy; Z87.891 Personal history of nicotine dependence; Z82.49 Family history of ischemic heart disease and other diseases of the circulatory system; Z79.899 Other long term (current) drug therapy; Z79.4 Long term (current) use of insulin
CPT/HCPCS: 36415 ×2; 82962 ×2; 82947; 84132; 85027; 80048 ×2; 83036; 93005; 93010; 36818; G0378 ×2; G0379; J2250; J3490 ×6; J0690; J3010; J1644; J0360; J1815 ×2; J2704; 1844; J2405

== ENCOUNTER → 2018-05-11 | Outpatient (CLI) | payer SELFPAY ==
--- NOTE | 2018-05-11 15:32 | RADIOLOGY REPORT (SQ) ---
EXAM DESCRIPTION: TIBIA FIBULA RIGHT COMPLETED DATE/TIME: 05/11/2018 3:13 pm REASON FOR STUDY: A M79.89 OTHER SPECIFIED SOFT TISSUE DISORDERS W19.XXXA UNSPECIFIED FALL, INITIA L ENCOUNTER fell 6 days ago, continued proximal fibular pain COMPARISON: None. NUMBER OF VIEWS: Two views. TECHNIQUE: Two radiographic images acquired of the right tibia and fibula to include the knee and an kle in at least one projection. LIMITATIONS: None. FINDINGS: MINERALIZATION: Normal. BONES: Acute comminuted nondisplaced nonangulated proximal right fibular metaphysis fracture marked w ith a [place] on the AP view SOFT TISSUES: No obvious swelling or foreign body. OTHER: No other significant finding. IMPRESSION: Acute comminuted nondisplaced nonangulated proximal right fibular metaphysis fracture TECHNICAL DOCUMENTATION: JOB ID: [id number] [employer]- All Rights Reserved Reading location - IP/workstation name: [email or web address]
--- NOTE | 2018-05-11 15:34 | RADIOLOGY REPORT (SQ) ---
EXAM DESCRIPTION: ANKLE RIGHT COMPLETE COMPLETED DATE/TIME: 05/11/2018 3:13 pm REASON FOR STUDY: FELL M79.89 OTHER SPECIFIED SOFT TISSUE DISORDERS W19.XXXA UNSPECIFIED FALL, INI TIAL ENCOUNTER fell 6 days ago, continued right ankle pain COMPARISON: None. NUMBER OF VIEWS: Three views. TECHNIQUE: AP, lateral, and oblique radiographic images acquired of the right ankle. LIMITATIONS: None. FINDINGS: MINERALIZATION: Normal. BONES: Old remote prior medial malleolar fracture with well corticated avulsion fragment. No acute d istal tibia or fibula fracture. Talus, calcaneus intact. JOINTS: No ankle joint effusion. No disruption of the ankle mortise SOFT TISSUES: Mild diffuse soft tissue swelling is present OTHER: No other significant finding. IMPRESSION: Soft tissue swelling. No acute fracture. Old medial malleolar avulsion fragment TECHNICAL DOCUMENTATION: JOB ID: [id number] [employer]- All Rights Reserved Reading location - IP/workstation name: [email or web address]
== END ==
LOC: OD 14:28
PROVIDERS: ATTEND Surgery
DX: S82.831A Other fracture of upper and lower end of right fibula, initial encounter for closed fracture (principal); W19.XXXA Unspecified fall, initial encounter; M79.89 Other specified soft tissue disorders

== ENCOUNTER 2018-05-12 16:20 | Emergency (ER) | payer MEDICARE ==
--- NOTE | 2018-05-12 17:18 | ER Document Report ---
ED General - General Chief Complaint: Leg Injury Stated Complaint: LEG PAIN Time Seen by Provider: 05/12/18 17:15 TRAVEL OUTSIDE OF THE [place] IN LAST 30 DAYS: No - HPI Patient complains to provider of: Right leg pain Notes: Patient coming in for lower leg pain. Patient is on hemodialysis was at his vascular access rn or vascular surgeon stated that he had pain and outpatient x-ray was performed showing a fracture and was referred to the ER for further evaluation. Patient states he is climbing stairs fell down one stair landing on his right side has been walking on it for 1 week pain on the lateral portion of the right leg underneath the knee and also pain in the middle of the ankle. Patient denies any other injuries loss of consciousness. - Related Data Allergies/Adverse Reactions: clarithromycin [From Biaxin] Allergy (Verified 05/12/18 16:57) Past Medical History - Social History Smoking Status: Former Smoker Frequency of alcohol use: Occasional Drug Abuse: None Family History: CAD, DM Patient has suicidal ideation: No Patient has homicidal ideation: No - Past Medical History Cardiac Medical History: Reports: Hx Hypertension Denies: Hx Heart Attack Pulmonary Medical History: Denies: Hx Asthma, Hx Bronchitis, Hx COPD, Hx Pneumonia Neurological Medical History: Denies: Hx Cerebrovascular Accident, Hx Seizures Endocrine Medical History: Reports: Hx Diabetes Mellitus Type 2 Renal/ Medical History: Reports: Hx End Stage Renal Disease, Hx Peritoneal Dialysis - WEDNESDAY/WEDNESDAY/WED Musculoskeletal Medical History: Reports Hx Arthritis Past Surgical History: Reports: Other - EGD and colonoscopy recently Permacath placement - Immunizations Hx Diphtheria, Pertussis, Tetanus Vaccination: Yes Review of Systems - Review of Systems Constitutional: No symptoms reported EENT: No symptoms reported Cardiovascular: No symptoms reported Respiratory: No symptoms reported Gastrointestinal: No symptoms reported Genitourinary: No symptoms reported Male Genitourinary: No symptoms reported Musculoskeletal: Other - Leg pain Skin: No symptoms reported Hematologic/Lymphatic: No symptoms reported Neurological/Psychological: No symptoms reported -: Yes All other systems reviewed and negative Physical Exam - Vital signs Vitals: Temp Pulse Resp BP Pulse Ox 98.2 F 87 16 177/88 H 96 05/12/18 16:41 05/12/18 16:41 05/12/18 16:41 05/12/18 16:41 05/12/18 16:41 Interpretation: Normal - General General appearance: Appears well, Alert - HEENT Head: Normocephalic, Atraumatic Eyes: Normal Pupils: PERRL - Respiratory Respiratory status: No respiratory distress Chest status: Nontender Breath sounds: Normal Chest palpation: Normal - Cardiovascular Rhythm: Regular Heart sounds: Normal auscultation Murmur: No - Abdominal Inspection: Normal Distension: No distension Bowel sounds: Normal Tenderness: Nontender Organomegaly: No organomegaly - Back Back: Normal, Nontender - Extremities General upper extremity: Normal inspection, Nontender, Normal color, Normal ROM , Normal temperature General lower extremity: Normal inspection, Edema - 2+ edema bilaterally, Normal color, Normal temperature. No: Nontender - Tenderness to palpation of the lateral malleolus medial malleolus and on the top of the mortise along with tenderness palpation of the proximal fibula, Narda's sign - Neurological Neuro grossly intact: Yes Cognition: Normal Orientation: AAOx4 Patti Coma Scale Eye Opening: Spontaneous [place] Coma Scale Verbal: Oriented [place] Coma Scale Motor: Obeys Commands Patti Coma Scale Total: 15 Speech: Normal Motor strength normal: LUE, RUE, LLE, RLE Sensory: Normal - Psychological Associated symptoms: Normal affect, Normal mood - Skin Skin Temperature: Warm Skin Moisture: Dry Skin Color: Normal Course - Re-evaluation Re-evalutation: 05/12/18 21:34 X-rays were reviewed on PACS showing a proximal fibular fracture. Patient was placed in a short leg splint patient states he cannot use crutches therefore he has a wheelchair at home that he will use. Patient was given orthopedic referral along with pain medication patient will be discharged home. - Vital Signs Vital signs: Temp Pulse Resp BP Pulse Ox 98.4 F 90 20 176/81 H 97 05/12/18 17:37 05/12/18 17:37 05/12/18 17:37 05/12/18 17:37 05/12/18 17:37 Discharge - Discharge Clinical Impression: Fibula fracture Qualifiers: Encounter type: initial encounter Fibula location: proximal Fracture type: closed Fracture morphology: unspecified fracture morphology Laterality: right Qualified Code(s): S82.831A - Other fracture of upper and lower end of right fibula, initial encounter for closed fracture Condition: Good Disposition: HOME, SELF-CARE Instructions: Fibular Shaft Fracture ([facility]), Ice & Elevation ([facility]), Warm Packs ( [facility]) Additional Instructions: Please follow-up with orthopedic physician Take Tylenol Motrin for pain control Morphine for severe pain May also place warm packs ice pack on your leg to aid in pain control. Elevate your leg Return to ER symptoms worsen Prescriptions: Morphine Sulfate [Morphine Ir 15 Mg Tablet] 15 mg PO Q6 #20 tablet Referrals: YOMAIRA MATHEW MD [ACTIVE STAFF] - Follow up as needed
[2018-05-12 18:13] VITALS: BP 176/81
== END 2018-05-12 17:40 | disposition home or self-care (01) ==
LOC: ER 16:20
PROC: 2W3QX1Z Immobilization of Right Lower Leg using Splint (ICD-10-PCS; principal; 2018-05-12)
DX: S82.831A Other fracture of upper and lower end of right fibula, initial encounter for closed fracture (principal); R40.2412 Glasgow coma scale score 13-15, at arrival to emergency department; I12.0 Hypertensive chronic kidney disease with stage 5 chronic kidney disease or end stage renal disease; E11.22 Type 2 diabetes mellitus with diabetic chronic kidney disease; N18.6 End stage renal disease; Z99.2 Dependence on renal dialysis; Z88.1 Allergy status to other antibiotic agents; Z87.891 Personal history of nicotine dependence; M19.90 Unspecified osteoarthritis, unspecified site
CPT/HCPCS: 99283

== ENCOUNTER 2018-06-30 10:29 | Day surgery (SDC) | payer MEDICARE, MEDICAID ==
[~2018-06-30 10:29] MED LIST changes: +DIAZEPAM 5 MG TABLET PO PRN; -LIDOCAINE 0.5% INJ-PF (5 MG/ML) 50 ML SDV SUBCUT PRN; -NORMAL SALINE 1000 ML (RENAL PATIENTS) IV PRN; +OXYCODONE-ACETAMINOPHEN 5-325 MG TABLET PO PRN
[2018-06-30] MEDS ORDERED: MIDAZOLAM 2 MG/2 ML INJ ONE (12:02)
[2018-06-30] MEDS ORDERED: LIDOCAINE 0.5% INJ-PF (5 MG/ML) 50 ML SDV ONE (12:02)
[2018-06-30] MEDS ORDERED: FENTANYL CITRATE INJ/PF 100 MCG/2 ML AMPUL ONE (12:02)
[2018-06-30] MEDS ORDERED: HEPARIN SOD (PORCINE) 5,000 UNIT/ML 1 ML SYRINGE ONE (12:02)
[2018-06-30 12:22] LABS: HEMATOCRIT 33.8 % (37.9-51.0); HEMOGLOBIN 11.6 g/dL (13.5-17.0); MEAN CORPUSCULAR HEMOGLOBIN 27.8 pg (27.0-33.4); MEAN CORPUSCULAR HGB CONC 34.3 g/dL (32.0-36.0); MEAN CORPUSCULAR VOLUME 81 fl (80-97); PLATELET COUNT 256 10^3/uL (150-450); RED BLOOD COUNT 4.17 10^6/uL (4.35-5.55); RED CELL DISTRIBUTION WIDTH 14.8 % (11.5-14.0); WHITE BLOOD COUNT 7.6 10^3/uL (4.0-10.5)
[2018-06-30 12:57] LABS: ANION GAP 14 (5-19); BLOOD UREA NITROGEN 36 mg/dL (7-20); CARBON DIOXIDE 28 mmol/L (22-30); CHLORIDE 93 mmol/L (98-107); GLUCOSE 357 mg/dL (75-110); POTASSIUM 4.2 mmol/L (3.6-5.0)
--- NOTE | 2018-06-30 13:56 | PDOC H&P ---
General Chief Complaint: The patient was referred across from the dialysis unit because of inadequate - Current Medications/Allergies Home Medications: Bumetanide [Bumex 2 mg Tablet] 8 mg PO DAILY 03/15/18 Gabapentin [Neurontin 300 mg Capsule] 300 mg PO Q12 03/15/18 Insulin Glargine,Hum.rec.anlog [Lantus Insulin 100 Unit/mL] 0 unit SUBCUT .CLARIFY 03/15/18 Insulin Lispro [Humalog Insulin (Lispro) 100 unit/mL] See Protocol SUBCUT .SLD SCALE 03/15/18 Metoprolol Succinate [Toprol Xl] 50 mg PO DAILY 03/15/18 Ondansetron [Zofran Odt 4 mg Tablet] 4 mg PO Q4HP PRN 03/15/18 Amlodipine Besylate [Norvasc 5 mg Tablet] 10 mg PO Q12 06/30/18 B Complex W-C No.20/Folic Acid [Virt-Caps Softgel] 1 mg PO DAILY 06/30/18 Clonidine HCl [Catapres] 0.2 mg PO BID 06/30/18 Metolazone 10 mg PO PRN PRN 06/30/18 Sevelamer HCl [Renagel] 800 mg PO TID 06/30/18 Allergies/Adverse Reactions: clarithromycin [From Biaxin] Allergy (Verified 05/12/18 16:57) Past Medical History Cardiac Medical History: Reports: Hypertension Denies: Coronary Artery Disease, Myocardial Infarction Pulmonary Medical History: Denies: Asthma, Bronchitis, Chronic Obstructive Pulmonary Disease (COPD), Pneumonia Neurological Medical History: Denies: Seizures Endocrine Medical History: Reports: Diabetes Mellitus Type 2 Renal/ Medical History: Reports: End Stage Renal Disease Musculoskeltal Medical History: Reports: Arthritis Hematology: Denies: Anemia Past Surgical History Past Surgical History: Reports: Other - EGD and colonoscopy recently Permacath placement Family History Family History: CAD, DM Parental Family History Reviewed: No Children Family History Reviewed: No Sibling(s) Family History Reviewed.: No Social History Smoking Status: Former Smoker Frequency of Alcohol Use: Rare Hx Recreational Drug Use: No Drugs: None Physical Exam Vital Signs: Temp Pulse Resp BP Pulse Ox 97.7 F 91 20 173/92 H 99 06/30/18 10:40 06/30/18 10:40 06/30/18 10:40 06/30/18 10:40 06/30/18 10:40 Intake & Output 06/29/18 06/30/18 07/01/18 06:59 06:59 06:59 Weight 105.8 kg Additional comments: Constitutional: Well-developed well-nourished gentleman. No apparent acute distress. Eyes: Mucous membranes pink and moist, pupils equal and reactive to light. Conjunctiva normal. Cornea normal. Cardiac: Heart sounds normal. Respiratory breath sounds are present bilaterally, normal. Normal respiratory effort. Psychiatric: Judgment, memory, insight seem normal. Mood is pleasant and appropriate. Extremities: Upper extremities show normal range of movement. Pulses present noted to the radial arteries. Capillary refill normal. No cyanosis noted. No muscle wasting noted. Right radiocephalic fistula in place, palpable but somewhat softer than would be expected. Impression/Plan Plan: In this patient doing fairly well on hemodialysis, angioplasty recommended for evaluation of the fistula. Flows have been suboptimal. The procedure, its risks, benefits, expected outcome and alternatives are understood by the patient. He wishes to proceed.
--- NOTE | 2018-06-30 13:59 | Discharge Summary ---
Discharge Summary (SDC) - Discharge Final Diagnosis: #1 malfunctioning AV fistula, right radiocephalic. 2. End-stage renal disease on hemodialysis. 3. Diabetes mellitus type 2. 4. Hypertension. Date of Surgery: 06/30/18 Discharge Date: 06/30/18 Condition: Good Treatment or Instructions: Discharge home [after recovery per ASU criteria]. Diet , [renal],as tolerated, when fully awake advance as tolerated. Activities within moderation encouraged. Follow up in my office by appointment if needed. Leave wounds [covered], [keep clean and dry, until hemodialysis. Meds per med rec. May shower [in 48 hrs], [try to keep operated area as dry as possible]. Discharge Diet: Other (Comments) - Renal, diabetic. Respiratory Treatments at Home: Deep Breathing/Coughing Discharge Activity: Activity As Tolerated Report the Following to Your Physician Immediately: Shortness of Breath, Unusual Bleeding
--- NOTE | 2018-06-30 14:04 | Operative Report ---
Operative Report DATE OF SURGERY: 06/30/18 PREOPERATIVE DIAGNOSIS: #1 malfunctioning AV fistula, right radiocephalic. 2. End-stage renal disease on hemodialysis. 3. Diabetes mellitus type 2. 4. Hypertension. POSTOPERATIVE DIAGNOSIS: #1 malfunctioning AV fistula, right radiocephalic. 2. End-stage renal disease on hemodialysis. 3. Diabetes mellitus type 2. 4. Hypertension. OPERATION: 1. Ultrasound-guided access into arteriovenous fistula. 2. Angioplasty. 3. Angiogram and interpretation. SURGEON: SANDY ROQUE PYROGLAZER: None. ANESTHESIA: Moderate Sedation TISSUE REMOVED OR ALTERED: Not applicable. COMPLICATIONS: None. ESTIMATED BLOOD LOSS: 2 mL. INTRAOPERATIVE FINDINGS: Of a well founded right forearm radiocephalic fistula. Somewhat softer than would be appreciable. Ultrasound demonstrated to be a very adequate caliber about 8 mm, in aggregate, up to the elbow. The area around the anastomosis not well visualized mild edema. To palpation the fistula is somewhat softer than would be expected. Angiogram demonstrates an area of stenosis in the perianastomotic region estimated to be about 60% of the adjacent lumen. Corrected by angioplasty. Postangioplasty of the fistula much more appropriately firmer suggesting that the lesion addressed was in fact hemodynamically significant and was improved or eliminated. PROCEDURE: PROCEDURE: After verifying the procedure and having obtained informed consent, the patient's right arm and forearm were prepared with Chlorhexidine and draped out with sterile linen. Local anesthesia infiltrated. Percutaneous access into the fistula ,[retrograde], obtained about [20 cm] from the arteriovenous anastomosis using a micro puncture needle followed by micro puncture wire and then a micro puncture catheter. This was done on ultrasound guidance using real-time access into the vein. Ultrasound was also used to size the vein. A 6 mm introducer was no placed. Angiogram demonstrated the aforementioned findings. Angioplasty was elected. A 0.035 [place] wire was inserted, and over this, a 6 Turkmen short introducer was placed, this was followed by a Kumpe catheter which was used to obtain appropriate angiogram. A 5 mm angioplasty balloon was now introduced. Angioplasty was now done just before the anastomosis and over the anastomotic and perianastomotic segment. This was done very carefully sustained with a 3 mils syringe for 2 minutes. Angiogram demonstrated successful outcome. T. Completion angiogram demonstrated [satisfactory result]. The instrumentation was now withdrawn over hand pressure for 10 minutes . Dressings applied, procedure concluded. Exposure time: 0.7 minutes Radiation: 4.48 Quin Reynaga. Contrast: 25 mL of Isovue-M 300 low osmolality. DICTATING PHYSICIAN: SANDY BAE M.D. cc: SANDY BAE M.D. ([id number]) >>
[2018-06-30 15:35] VITALS: BP 151/87
== END 2018-06-30 14:55 | disposition home or self-care (01) ==
LOC: CCL 10:29
PROVIDERS: ATTEND Surgery
DX: T82.858A Stenosis of other vascular prosthetic devices, implants and grafts, initial encounter (principal); Y83.2 Surgical operation with anastomosis, bypass or graft as the cause of abnormal reaction of the patient, or of later complication, without mention of misadventure at the time of the procedure; I12.0 Hypertensive chronic kidney disease with stage 5 chronic kidney disease or end stage renal disease; E11.22 Type 2 diabetes mellitus with diabetic chronic kidney disease; N18.6 End stage renal disease; Z99.2 Dependence on renal dialysis; Z79.4 Long term (current) use of insulin; Z79.899 Other long term (current) drug therapy; Z88.1 Allergy status to other antibiotic agents; M19.90 Unspecified osteoarthritis, unspecified site
CPT/HCPCS: 36415; 82962; 85027; 80048; 36902; 76937; C1752; C1725; C1887; C1769; J2250; J1644 ×2; A9270 ×2; J3010; J3490

== ENCOUNTER 2018-07-02 22:15 | Emergency (ER) | payer MEDICARE, MEDICAID ==
[2018-07-02] MEDS ORDERED: OXYCODONE-ACETAMINOPHEN 5-325 MG TABLET PO ONE (22:29)
--- NOTE | 2018-07-02 22:30 | ER Document Report ---
ED Fall - General TRAVEL OUTSIDE OF THE [place] IN LAST 30 DAYS: No - General Chief Complaint: Fall Injury Stated Complaint: FALL,LEFT SIDE RIB PAIN Time Seen by Provider: 07/02/18 22:24 Notes: Patient is a 38-year-old male that comes to the emergency department for chief complaint of pain in his left ribs going around the left side towards the left back in the lower ribs after a fall in the shower. He states he fell 2 days ago , he slipped, fell backwards, hit his side on the edge of the tub, he did hit his head. He denies pain down his back, headache, vomiting, syncope with the injury, numbness, incontinence. He is a dialysis patient, had dialysis earlier today. He states he is not taking a blood thinner. (JOE DOYLE) - Related data Allergies/Adverse Reactions: clarithromycin [From Biaxin] Allergy (Verified 05/12/18 16:57) Past Medical History - General Information source: Patient - Social History Smoking Status: Never Smoker Frequency of alcohol use: Occasional Drug Abuse: None Lives with: Family Family History: CAD, DM - Past Medical History Cardiac Medical History: Reports: Hx Hypertension Denies: Hx Coronary Artery Disease, Hx Heart Attack Pulmonary Medical History: Denies: Hx Asthma, Hx Bronchitis, Hx COPD, Hx Pneumonia Neurological Medical History: Denies: Hx Cerebrovascular Accident, Hx Seizures Endocrine Medical History: Reports: Hx Diabetes Mellitus Type 2 Renal/ Medical History: Reports: Hx End Stage Renal Disease, Hx Peritoneal Dialysis - WEDNESDAY/WEDNESDAY/WED Musculoskeletal Medical History: Reports Hx Arthritis Past Surgical History: Reports: Other - EGD and colonoscopy recently Permacath placement - Immunizations Hx Diphtheria, Pertussis, Tetanus Vaccination: Yes Review of Systems - Review of Systems Constitutional: No symptoms reported EENT: No symptoms reported Cardiovascular: No symptoms reported Respiratory: No symptoms reported Gastrointestinal: No symptoms reported Genitourinary: No symptoms reported Male Genitourinary: No symptoms reported Musculoskeletal: See HPI Skin: No symptoms reported Hematologic/Lymphatic: No symptoms reported Neurological/Psychological: See HPI Physical Exam - Vital signs Vitals: Temp Pulse Resp BP Pulse Ox 98.8 F 83 17 152/81 H 96 07/02/18 22:18 07/02/18 22:18 07/02/18 22:18 07/02/18 22:18 07/02/18 22:18 - Notes Notes: GENERAL: Alert, interacts well. Patient stiff and moves uncomfortably. HEAD: Normocephalic, atraumatic. EYES: Pupils equal, round, and reactive to light. Extraocular movements intact. ENT: Oral mucosa moist, tongue midline. Oropharynx unremarkable. Airway patent. Nares patent, no nasal septal hematoma, TM's intact. NECK: Full range of motion. Supple. Trachea midline. LUNGS: Clear to auscultation bilaterally, no wheezes, rales, or rhonchi. No respiratory distress. There is marked tenderness with palpation over the mid to lower lateral ribs extending towards the back, there is no bruising or swelling, there is no crepitus. HEART: Regular rate and rhythm. No murmur ABDOMEN: Soft, non-tender. Non-distended. Bowel sounds present in all 4 quadrants. No signs of trauma. GENITOURINARY: Deferred EXTREMITIES: Moves all 4 extremities spontaneously. No edema, normal radial and dorsalis pedis pulses bilaterally. No cyanosis. BACK: no cervical, thoracic, lumbar midline tenderness. No saddle anesthesia, normal distal neurovascular exam. No signs of trauma. NEUROLOGICAL: Alert and oriented x3. Normal speech. [cranial nerves II through XII grossly intact]. PSYCH: Normal affect, normal mood. SKIN: Warm, dry, normal turgor. No rashes or lesions noted. (JOE DOYLE) Course - Re-evaluation Re-evalutation: Patient with tenderness over the ribs, back unremarkable, abdomen unremarkable, neurological examination unremarkable. He has had 2 days duration since his head injury and fall injury. Low suspicion of intracranial hemorrhage or spinal cord injury based on his evaluation. He does not have a headache. X-ray shows nondisplaced fracture of the left lateral/posterior rib, no acute findings otherwise. Vital signs unremarkable. No signs of respiratory distress. Discussed with patient. I did provide him with pain medication, incentive spirometry, discussed expectations, follow-up, and return precautions in detail. Patient states understanding and agreement. (JOE DOYLE) - Vital Signs Vital signs: Temp Pulse Resp BP Pulse Ox 99.2 F 82 20 148/83 H 97 07/02/18 23:54 07/02/18 23:54 07/02/18 23:54 07/02/18 23:54 07/02/18 23:54 Discharge - Discharge Clinical Impression: Side pain Left rib fracture Qualifiers: Encounter type: initial encounter Rib fracture type: single rib Fracture type: closed Qualified Code(s): S22.32XA - Fracture of one rib, left side, initial encounter for closed fracture Condition: Stable Disposition: HOME, SELF-CARE Additional Instructions: You have been diagnosed as having a broken rib. It will usually take four to six weeks for these injured ribs to heal. Take the pain medication if needed, you can take ibuprofen as well as you are already doing, use the incentive spirometry to avoid developing pneumonia, use this at least several times a day. You should not engage in any strenuous physical activity until released by your physician. The usual rule is "if it hurts, don't do it." Rib fractures can lead to serious lung complications including lung collapse, hemorrhage, and pneumonia. You should call the physician or return at once if any of the following occur: (1) Fever or chills. (2) Persistent cough, coughing up blood, or shortness of breath. (3) Increasing pain. (4) Weakness, lightheadedness, or fainting. Prescriptions: Oxycodone HCl/Acetaminophen [Percocet 5-325 mg Tablet] 1 - 2 tab PO Q6H PRN #15 tablet PRN Reason: Oxycodone HCl/Acetaminophen [Percocet 5-325 mg Tablet] 1 - 2 tab PO Q6H PRN #15 tablet PRN Reason:
--- NOTE | 2018-07-02 23:12 | RADIOLOGY REPORT (SQ) ---
EXAM DESCRIPTION: XR RIBS UNILATERAL WITH CHEST COMPLETED DATE/TME: 07/02/2018 22:29 CLINICAL HISTORY: 38 years, Male, fall, pain COMPARISON: None. NUMBER OF VIEWS: 5 TECHNIQUE: Frontal view the chest and 4 views of the left ribs LIMITATIONS: None. FINDINGS: Heart size is normal. Lungs are clear. No pneumothorax. Nondisplaced fracture of the posterior lateral seventh rib. No other left rib fractures. Soft tissues are unremarkable IMPRESSION: Nondisplaced posterior lateral left rib fracture copyright 2010 [employer]- All Rights Reserved
[2018-07-03 00:03] VITALS: BP 148/83
--- NOTE | 2018-07-03 17:38 | ER Document Report ---
Doctor's Note Notes: 07/03/18 17:37 Patient's returned with the prescription prescribed to her last night and stated that the provider who wrote the prescription was not enrolled in Medicare which made the pharmacy turn down the prescription. I did rewrite the prescription as written last night. Percocet 5 mg every 6 #15.
== END 2018-07-03 00:03 | disposition home or self-care (01) ==
LOC: ER 22:15
DX: S22.32XA Fracture of one rib, left side, initial encounter for closed fracture (principal); R07.81 Pleurodynia; M54.9 Dorsalgia, unspecified; W18.2XXA Fall in (into) shower or empty bathtub, initial encounter; I10 Essential (primary) hypertension; E11.9 Type 2 diabetes mellitus without complications
CPT/HCPCS: 99283; 71101; A9270

== ENCOUNTER 2018-07-26 20:59 | Emergency (ER) | payer MEDICARE, MEDICAID ==
--- NOTE | 2018-07-26 23:24 | RADIOLOGY REPORT (SQ) ---
EXAM DESCRIPTION: XR RIBS UNILATERAL WITH CHEST COMPLETED DATE/TME: 07/26/2018 22:54 CLINICAL HISTORY: 38 years, Male, pain COMPARISON: 07/02/2018 left rib series NUMBER OF VIEWS: 3 TECHNIQUE: Frontal view the chest and 2 views of the left ribs LIMITATIONS: None. FINDINGS: The heart size is normal. Lungs are clear. No pneumothorax. Partial bony healing of the previously described left 7th rib fracture. No new left rib fractures. Soft tissues are unremarkable IMPRESSION: Partial bony healing of the previously described left seventh rib fracture. copyright 2010 [employer]- All Rights Reserved
[2018-07-26] MEDS ORDERED: HYDROCODONE/ACETAMINOPHEN 5-325 MG (6 TAB/ER DISP) PO PRN (23:45)
--- NOTE | 2018-07-26 23:46 | ER Document Report ---
ED General - General Chief Complaint: Rib Pain Stated Complaint: RIB PAIN Time Seen by Provider: 07/26/18 22:48 Notes: Patient is a 38-year-old male who presents with complaint of rib pain. Patient fell approximately 3 weeks ago and broke his rib. He says he still has pain whenever he coughs or sneezes. He also has pain when he moves or lays onto his back. He says is concerned it may be the rib could be displaced now being that he still has pain. He requests reevaluation. He has no other complaints at this time. Denies any new injuries. No fevers. No difficulty breathing. Patient does have end-stage renal disease and is on dialysis. TRAVEL OUTSIDE OF THE [place] IN LAST 30 DAYS: No - Related Data Allergies/Adverse Reactions: clarithromycin [From [employer]] Allergy (Verified 05/12/18 16:57) Past Medical History - Social History Smoking Status: Unknown if Ever Smoked Frequency of alcohol use: None Drug Abuse: None Family History: CAD, DM Patient has suicidal ideation: No Patient has homicidal ideation: No - Past Medical History Cardiac Medical History: Reports: Hx Hypertension Denies: Hx Coronary Artery Disease, Hx Heart Attack Pulmonary Medical History: Denies: Hx Asthma, Hx Bronchitis, Hx COPD, Hx Pneumonia Neurological Medical History: Denies: Hx Cerebrovascular Accident, Hx Seizures Endocrine Medical History: Reports: Hx Diabetes Mellitus Type 2 Renal/ Medical History: Reports: Hx End Stage Renal Disease. Denies: Hx Peritoneal Dialysis Musculoskeletal Medical History: Reports Hx Arthritis Past Surgical History: Reports: Other - EGD and colonoscopy recently Permacath placement - Immunizations Hx Diphtheria, Pertussis, Tetanus Vaccination: Yes Review of Systems - Review of Systems Notes: My Normal Review Basic REVIEW OF SYSTEMS: CONSTITUTIONAL : Denies fever, chills, or sweats. Denies recent illness. RESPIRATORY: Denies cough, cold, or chest congestion. Denies shortness of breath, difficulty breathing, or wheezing. GASTROINTESTINAL: Denies abdominal pain. Denies nausea, vomiting, or diarrhea. MUSCULOSKELETAL: Rib pain SKIN: Denies rash or skin lesions. NEUROLOGICAL: Denies altered mental status or loss of consciousness. Denies headache. Denies weakness or paralysis or loss of use of either side. Denies problems with gait or speech. Denies sensory or motor loss. Physical Exam - Vital signs Vitals: Temp Pulse Resp BP Pulse Ox 98.3 F 67 16 143/83 H 95 07/26/18 21:19 07/26/18 21:19 07/26/18 21:19 07/26/18 21:19 07/26/18 21:19 - Notes Notes: General Appearance: Well nourished, alert, cooperative, no acute distress, mild obvious discomfort. Vitals: reviewed, See vital signs table. Head: no swelling or tenderness to the head Eyes: PERRL, EOMI, Conjuctiva clear Mouth: No decreasd moisture Chest wall: Focal pain to palpation over the straight angle of ribs on the left lower side. Lungs: No wheezing, No rales, No rhonci, No accessory muscle use, good air exchange bilaterally. Heart: Normal rate, Regular rythm, No murmur, no rub Skin: warm, dry, appropriate color, no rash Neuro: speech clear, oriented x 3, normal affect, responds appropriately to questions. Course - Re-evaluation Re-evalutation: 07/27/18 05:45 The patient is safe to be discharged home. He looks well. Lung bronson are clear. Repeat x-ray shows that his rib is starting to heal. I talked at length about this. I informed him to return to ER if he has fevers, difficulty breathing, or feels unwell. He says they are he has incentive spirometer at home and has been using it. Patient has no other complaints at this time. Dictation of this chart was performed using voice recognition software; therefore, there may be some unintended grammatical errors. - Vital Signs Vital signs: Temp Pulse Resp BP Pulse Ox 98.1 F 76 19 134/81 H 97 07/26/18 23:52 07/26/18 23:52 07/26/18 23:52 07/26/18 23:52 07/26/18 23:52 Discharge - Discharge Clinical Impression: Rib fracture Qualifiers: Encounter type: subsequent encounter Rib fracture type: single rib Fracture type: closed Laterality: left Fracture healing: with routine healing Qualified Code(s): S22.32XD - Fracture of one rib, left side, subsequent encounter for fracture with routine healing Condition: Good Disposition: HOME, SELF-CARE Additional Instructions: Rib Injuries and Fractures You have been diagnosed as having either bruised or broken ribs. These two injuries are treated in the same way. It will usually take four to six weeks for these injured ribs to heal. Sometimes, rib belts or anesthetic injections of the chest wall help reduce the pain. If you are using a rib belt, you should cough or take a deep breath at least every hour or two to prevent lung complications. You should not engage in any strenuous physical activity until released by your physician. The usual rule is "if it hurts, don't do it." Rib fractures can lead to serious lung complications including lung collapse, hemorrhage, and pneumonia. You should call the physician or return at once if any of the following occur: (1) Fever or chills. (2) Persistent cough, coughing up blood, or shortness of breath. (3) Increasing pain. (4) Weakness, lightheadedness, or fainting. Please be aware that [employer] does have Tylenol (acetaminophen) in it. Please make sure you do not take more than 4000 mg of acetaminophen a day. Do not drive or care for children after you have taken this medication they will make you sleepy and sometimes impair judgment.
[2018-07-26 23:53] VITALS: BP 134/81
== END 2018-07-26 23:53 | disposition home or self-care (01) ==
LOC: ER 20:59
DX: S22.32XD Fracture of one rib, left side, subsequent encounter for fracture with routine healing (principal); W19.XXXD Unspecified fall, subsequent encounter; E11.22 Type 2 diabetes mellitus with diabetic chronic kidney disease; I12.0 Hypertensive chronic kidney disease with stage 5 chronic kidney disease or end stage renal disease; N18.6 End stage renal disease; Z99.2 Dependence on renal dialysis; Z88.8 Allergy status to other drugs, medicaments and biological substances
CPT/HCPCS: 99283; 71101; A9270

== ENCOUNTER 2018-12-19 09:58 | Day surgery (SDC) | payer MEDICARE, OTHER ==
[2018-12-19] MEDS ORDERED: OXYCODONE-ACETAMINOPHEN 5-325 MG TABLET ONE (10:33)
[2018-12-19] MEDS ORDERED: DIAZEPAM 5 MG TABLET ONE (10:33)
[2018-12-19 11:04] LABS: ABSOLUTE BASOPHILS # (AUTO) 0.1 10^3/uL (0.0-0.2); ABSOLUTE EOSINOPHILS # (AUTO) 0.6 10^3/uL (0.0-0.6); ABSOLUTE LYMPHOCYTES (AUTO) 1.4 10^3/uL (0.5-4.7); ABSOLUTE MONOCYTES (AUTO) 0.8 10^3/uL (0.1-1.4); ABSOLUTE NEUT (AUTO) 5.9 10^3/uL (1.7-8.2); BASOPHILS % (AUTO) 0.6 % (0-2); EOSINOPHILS % (AUTO) 7.2 % (0-6); HEMATOCRIT 31.1 % (37.9-51.0); HEMOGLOBIN 10.6 g/dL (13.5-17.0); LYMPHOCYTES % (AUTO) 16.3 % (13-45); MEAN CORPUSCULAR HEMOGLOBIN 29.7 pg (27.0-33.4); MEAN CORPUSCULAR HGB CONC 34.1 g/dL (32.0-36.0); MEAN CORPUSCULAR VOLUME 87 fl (80-97); MONOCYTES % (AUTO) 8.8 % (3-13); PLATELET COUNT 301 10^3/uL (150-450); RED BLOOD COUNT 3.57 10^6/uL (4.35-5.55); RED CELL DISTRIBUTION WIDTH 14.1 % (11.5-14.0); SEGMENTED NEUTROPHILS % (AUTO) 67.1 % (42-78); TOTAL CELLS COUNTED % (AUTO) 100 %; WHITE BLOOD COUNT 8.8 10^3/uL (4.0-10.5)
[2018-12-19 11:39] LABS: ANION GAP 18 (5-19); BLOOD UREA NITROGEN 67 mg/dL (7-20); CALCIUM 9.1 mg/dL (8.4-10.2); CARBON DIOXIDE 24 mmol/L (22-30); CHLORIDE 96 mmol/L (98-107); GLUCOSE 126 mg/dL (75-110); POTASSIUM 5.9 mmol/L (3.6-5.0); SODIUM 137.5 mmol/L (137-145)
[2018-12-19] MEDS ORDERED: MIDAZOLAM 2 MG/2 ML INJ ONE (11:56)
[2018-12-19] MEDS ORDERED: LIDOCAINE 0.5% INJ-PF (5 MG/ML) 50 ML SDV ONE (11:56)
[2018-12-19] MEDS ORDERED: FENTANYL CITRATE INJ/PF 100 MCG/2 ML AMPUL ONE (11:56)
[2018-12-19] MEDS ORDERED: HEPARIN SOD (PORCINE) 5,000 UNIT/ML 1 ML SYRINGE ONE (11:56)
[2018-12-19] MEDS ORDERED: CALCIUM GLUCONATE 1000 MG/10 ML INJ IV ONE ×2 (11:57→12:15)
[2018-12-19] MEDS ORDERED: SODIUM POLYSTYRENE SULFONATE 15 GM/60 ML PO ONE (12:30)
--- NOTE | 2018-12-19 13:23 | PDOC H&P ---
General Chief Complaint: This patient is referred across for investigation of his right arm arteriovenous fistula which is malfunctioning. - Diagnosis (1) Dialysis AV fistula malfunction Is this a Current Diagnosis?: Yes (2) Diabetes mellitus type 2 in nonobese Is this a Current Diagnosis?: Yes (3) End-stage renal disease on hemodialysis Is this a Current Diagnosis?: Yes (4) Hypertension Is this a Current Diagnosis?: Yes - Current Medications/Allergies Home Medications: Bumetanide [Bumex 2 mg Tablet] 4 mg PO BID 03/15/18 Gabapentin [Neurontin 300 mg Capsule] 300 mg PO Q12 03/15/18 Metoprolol Succinate [Toprol Xl] 50 mg PO DAILY 03/15/18 Amlodipine Besylate [Norvasc 5 mg Tablet] 10 mg PO Q12 06/30/18 Calcium Acetate [Phoslo 667 mg Capsule] 3 cap PO TID 12/13/18 Folic Acid/Vit B Complex and C [Dialyvite 800 Tablet] 1 tab PO DAILY 12/13/18 Hum Insulin NPH/Reg Insulin Hm [Insulin 70-30 (NPH/Reg) 100 unit/mL] 20 units SQ QHS 12/13/18 Hum Insulin NPH/Reg Insulin Hm [Insulin 70-30 (NPH/Reg) 100 unit/mL] 24 units SQ DAILY 12/13/18 Allergies/Adverse Reactions: clarithromycin [From Biaxin] Allergy (Verified 12/13/18 12:43) Past Medical History Cardiac Medical History: Reports: Hypertension Denies: Coronary Artery Disease, Myocardial Infarction Pulmonary Medical History: Denies: Asthma, Bronchitis, Chronic Obstructive Pulmonary Disease (COPD), Pneumonia Neurological Medical History: Denies: Seizures Endocrine Medical History: Reports: Diabetes Mellitus Type 2 Renal/ Medical History: Reports: End Stage Renal Disease Musculoskeltal Medical History: Reports: Arthritis - SPINE & HANDS Hematology: Reports: Anemia - 08/05 Past Surgical History Past Surgical History: Reports: Other - EGD and colonoscopy recently Permacath placement Family History Family History: CAD, DM Parental Family History Reviewed: No Children Family History Reviewed: No Sibling(s) Family History Reviewed.: No Social History Smoking Status: Former Smoker Frequency of Alcohol Use: Rare Hx Recreational Drug Use: No Drugs: None Physical Exam Vital Signs: Temp Pulse Resp BP Pulse Ox 97.8 F 74 18 147/87 H 96 12/19/18 11:29 12/19/18 11:29 12/19/18 11:29 12/19/18 11:29 12/19/18 11:29 Intake & Output 12/18/18 12/19/18 12/20/18 06:59 06:59 06:59 Weight 113.398 kg Additional comments: Constitutional: Well-developed well-nourished gentleman. No apparent acute distress. Eyes: Mucous membranes pink and moist, pupils equal and reactive to light. Conjunctiva normal. Cornea normal. ENT: Hearing grossly normal. External pinna normal to inspection. Teeth intact. Tongue normal to inspection. Cardiac: Heart sounds normal. Respiratory: Normal respiratory effort. Psychiatric: Judgment, memory, insight seem normal. Mood is pleasant and appropriate. Extremities: Upper extremities show normal range of movement. Pulses present noted to the radial arteries. Capillary refill normal. No cyanosis noted. No muscle wasting noted. Right forearm radiocephalic fistula in place somewhat soft, suggesting inflow stenosis. L Impression/Plan Plan: Angiogram and possibly angioplasty. The goal is improvement in fistula function. The procedure, its risks, benefits, expected outcomes alternatives are acceptable to the patient.
--- NOTE | 2018-12-19 13:25 | Discharge Summary ---
Discharge Summary (SDC) - Discharge Final Diagnosis: #1 malfunctioning radiocephalic fistula, right forearm. 2. End-stage renal disease on hemodialysis. 3. Diabetes mellitus type 2. 4. Hypertension. Date of Surgery: 12/19/18 Discharge Date: 12/19/18 Condition: Good Treatment or Instructions: Discharge home [after recovery per ASU criteria]. Diet , [renal],as tolerated, when fully awake advance as tolerated. Activities within moderation encouraged. Follow up in my office by appointment in about [1 week]. Call for appointment. Leave wounds [covered], [keep clean and dry, until hemodialysis. Hold of on school/work [until evaluation in office]. Meds per med rec. May shower [in 48 hrs], [try to keep operated area as dry as possible]. Referrals: BRYAN SAGE PA [Primary Care Provider] - Discharge Diet: Other (Comments) - Renal, diabetic. Respiratory Treatments at Home: Deep Breathing/Coughing Discharge Activity: Activity As Tolerated
--- NOTE | 2018-12-19 13:30 | Operative Report ---
Operative Report DATE OF SURGERY: 12/19/18 PREOPERATIVE DIAGNOSIS: #1 malfunctioning radiocephalic fistula, right forearm. 2. End-stage renal disease on hemodialysis. 3. Diabetes mellitus type 2. 4. Hypertension. POSTOPERATIVE DIAGNOSIS: #1 malfunctioning radiocephalic fistula, right forearm. 2. End-stage renal disease on hemodialysis. 3. Diabetes mellitus type 2. 4. Hypertension. OPERATION: 1. Ultrasound evaluation and real-time needle access into arteri ovenous fistula. 2. Angioplasty. 3. Angiogram and interpretation. SURGEON: SANDY ROQUE SENIOR ELECTRICAL PROJECT MANAGER: None. ANESTHESIA: Moderate Sedation TISSUE REMOVED OR ALTERED: Not applicable. COMPLICATIONS: None. ESTIMATED BLOOD LOSS: 2 mL. INTRAOPERATIVE FINDINGS: Of a well founded mildly ectatic right forearm radiocephalic fistula. Somewhat softer than expected. Concordant with the finding of a approximately 50% stenosis right at the anastomosis. This was completely eliminated by angioplasty. Using a 5 mm angioplasty balloon. The fistula was much improved to palpation and anticipated improvement in dialysis. PROCEDURE: PROCEDURE: After verifying the procedure and having obtained informed consent, the patient's right arm and forearm were prepared with Chlorhexidine and draped out with sterile linen. Local anesthesia infiltrated. Percutaneous access into the fistula ,[retrograde], obtained about [20 cm] from the arteriovenous anastomosis using a micro puncture needle followed by micro puncture wire and then a micro puncture catheter. This was done on ultrasound guidance using real-time access into the vein. Ultrasound was also used to size the vein. A A 0.035 [place] wire was inserted, and over this, a 6 Pashto short introducer was placed. Angiogram demonstrated the aforementioned. This was followed by a 5 mm angioplasty balloon . Angioplasty was now done at the distal radial artery anastomotic segment. This was done very carefully and using a 3 mils balloon for 1 minute. Angiogram demonstrated successful outcome. The instrumentation was now withdrawn over a short piece of catheter and Hand pressure for 10 minutes. Dressings applied, procedure concluded. Exposure time: 1.7 minutes Radiation: To Ashleigh hartley. Contrast: 25 mL of Isovue-M 300 low osmolality. DICTATING PHYSICIAN: SANDY BAE M.D. cc: ASNDY BAE M.D. ([id number]) >>
--- NOTE | 2018-12-19 14:11 | RADIOLOGY REPORT (SQ) ---
EXAM DESCRIPTION: FISTULAGRAM W/PLASTY COMPLETED DATE/TIME: 12/19/2018 1:12 pm REASON FOR STUDY: T82.858A T82.858A STENOSIS OF OTHER VASCULAR PROSTH DEV/GRFT, INIT COMPARISON: None. FLUOROSCOPY TIME: 1.7 minutes 95 images saved to PACS. TECHNIQUE: Intra-operative images acquired during surgical procedure to evaluate progress. NUMBER OF IMAGES: 95 LIMITATIONS: None. FINDINGS: Selected images from upper extremity intervention dialysis graft. IMPRESSION: IMAGE(S) OBTAINED DURING PROCEDURE. COMMENT: Quality ID [id number]: Final reports for procedures using fluoroscopy that document radiation exp osure indices, or exposure time and number of fluorographic images (if radiation exposure indices are not available) Please consult full operative report of the attending physician for description of the procedure. TECHNICAL DOCUMENTATION: JOB ID: [id number] [employer]- All Rights Reserved Reading location - IP/workstation name: [email or web address]
[2018-12-19 14:34] VITALS: BP 138/84
== END 2018-12-19 14:30 | disposition home or self-care (01) ==
LOC: CCL 09:58
PROVIDERS: ATTEND Surgery
DX: T82.858A Stenosis of other vascular prosthetic devices, implants and grafts, initial encounter (principal); Y83.2 Surgical operation with anastomosis, bypass or graft as the cause of abnormal reaction of the patient, or of later complication, without mention of misadventure at the time of the procedure; I12.0 Hypertensive chronic kidney disease with stage 5 chronic kidney disease or end stage renal disease; E11.22 Type 2 diabetes mellitus with diabetic chronic kidney disease; N18.6 End stage renal disease; Z99.2 Dependence on renal dialysis; Z79.899 Other long term (current) drug therapy; Z79.4 Long term (current) use of insulin
CPT/HCPCS: 36415; 85025; 80048; 36902; 76937; C1752; C1725; C1887; Q9967; C1769; J2250; J0610; J1644 ×2; A9270 ×2; J3010; J3490

== ENCOUNTER 2019-02-23 08:00 | Day surgery (SDC) | payer MEDICARE, OTHER ==
[~2019-02-23 08:00] MED LIST changes: -DIAZEPAM 5 MG TABLET PO PRN; +KETOROLAC TROMETHAMINE 0.45% 4 DROP/0.4 ML DROPERETTE OD PRN; -OXYCODONE-ACETAMINOPHEN 5-325 MG TABLET PO PRN
[2019-02-23] MEDS: TROPICAMIDE 1% OPH SOLN 3 ML OD PRN ×3 (08:35→09:07)
[2019-02-23] MEDS: CYCLOPENTOLATE 0.2%/PHENYLEPHRINE 1% OPH SOLN 2 ML OD PRN ×3 (08:35→09:07)
[2019-02-23] MEDS: BESIFLOXACIN HCL 0.6% OPH SUSP 5 ML BOTTLE OD PRN ×4 (08:36→09:36)
[2019-02-23] MEDS: TETRACAINE HCL 0.5% OPH SOLN 4 ML OD PRN ×4 (08:37→09:15)
[2019-02-23] MEDS ORDERED: MIDAZOLAM 2 MG/2 ML INJ ONE (09:18)
[2019-02-23] MEDS: LIDOCAINE 1%/PHENYLEPHRINE 1.5% 1 ML VIAL ONE ×2 (09:25)
[2019-02-23] MEDS: CHONDR SU A NA/HYALUR INTRAOC KIT (SURGICARE) ONE ×2 (09:25)
[2019-02-23] MEDS: EPINEPHRINE INJ/PF 1 MG/1 ML AMPULE ONE ×2 (09:25)
[2019-02-23] MEDS: DORZOLAMIDE HCL 2%/TIMOLOL MALEAT 0.5% OPH SOLN 10 ML OD PRN ×2 (09:36)
--- NOTE | 2019-02-23 17:40 | [facility] DISCHARGE SUMMARY E ---
[facility] Discharge Summary NAME: CECILIO ALCAZAR JR AGE: 38Y ADMITTED: 02/23/2019 DISCHARGED: 02/23/2019 HOSPITAL COURSE: This is a 38-year-old male who underwent cataract extraction of the right eye. DIAGNOSIS: CATARACT, RIGHT EYE. He underwent surgery because he was having difficulty seeing small print on the television and trouble seeing words on the television. DISCHARGE INSTRUCTIONS: He should be on a regular diet. No bending at his waist, no heavy lifting. He should use his Predforte, Ketorolac, and Vigamox at 3 p.m. and 8 p.m. and sleep with a rigid shield. I will see him for his 1 day postoperative tomorrow. DICTATING PHYSICIAN: KITTY LANGFORD M.D. [id number] PHY#: [id number] ID: [id number] JOB#: [id number] ACCT: [id number] cc:KITTY LANGFORD M.D. >
--- NOTE | 2019-02-23 17:40 | [facility] OPERATIVE REPORT E ---
[facility] Operative Report NAME: CECILIO ALCAZAR JR AGE: 38Y DATE OF SURGERY: 02/23/2019 ROOM: PREOPERATIVE DIAGNOSIS: CATARACT, RIGHT EYE. POSTOPERATIVE DIAGNOSIS: CATARACT, RIGHT EYE. OPERATION: Cataract extraction with insertion of an IOL of the right eye. SURGEON: KITTY LANGFORD M.D. ANESTHESIA: Topical. PROCEDURE: After obtaining appropriate consent, the patient's right eye was prepped and draped in sterile fashion as well as the surgeon in a sterile manner and cataract surgery was started. First a paracentesis blade was used to make a side-port incision. Viscoelastic was used to inflate the anterior chamber. Next a 2.4 mm incision was made with a 2.4 mm blade, clear corneal temporally. A continuous capsulorrhexis was made using a cystotome and Utrata forceps. Following this hydrodissection was carried out to make the lens fully loose and mobile and it was rotated 90 degrees. Following this, a wsmyke-iha-jblojmk technique was used to phacoemulsify the lens with a CDE of 3.78. The remaining cortex was removed with irrigation/aspiration. Provisc was instilled into the capsular bag to inflate the bag. A SN60WF, 22.5 diopter lens was placed. The remaining viscoelastic material was removed with irrigation/aspiration. Following this, the incision was found to be watertight. Besivance was instilled into the eye and a protective shield was placed over the eye. The patient returned to the postoperative recovery in stable condition. DICTATING PHYSICIAN: KITTY LANGFORD M.D. [id number] PHY#: [id number] ID: [id number] JOB#: [id number] ACCT: [id number] cc:KITTY LANGFORD M.D. >
== END 2019-02-23 10:07 | disposition home or self-care (01) ==
LOC: SC 08:00
PROVIDERS: ATTEND Internal Medicine
DX: H25.811 Combined forms of age-related cataract, right eye (principal); Z96.1 Presence of intraocular lens; E11.9 Type 2 diabetes mellitus without complications; Z79.4 Long term (current) use of insulin; Z87.891 Personal history of nicotine dependence
CPT/HCPCS: 66984; 82962; V2632; J2250; J3490 ×2; J0171; J2370; 142

== ENCOUNTER 2019-03-27 08:48 | Day surgery (SDC) | payer MEDICARE, OTHER ==
[~2019-03-27 08:48] MED LIST changes: +DIAZEPAM 5 MG TABLET PO PRN; -KETOROLAC TROMETHAMINE 0.45% 4 DROP/0.4 ML DROPERETTE OD PRN; +OXYCODONE-ACETAMINOPHEN 5-325 MG TABLET PO PRN
[2019-03-27 09:28] LABS: HEMATOCRIT 31.8 % (37.9-51.0); HEMOGLOBIN 10.9 g/dL (13.5-17.0); MEAN CORPUSCULAR HGB CONC 34.2 g/dL (32.0-36.0); MEAN CORPUSCULAR VOLUME 85 fl (80-97); PLATELET COUNT 243 10^3/uL (150-450); RED BLOOD COUNT 3.75 10^6/uL (4.35-5.55); RED CELL DISTRIBUTION WIDTH 14.3 % (11.5-14.0); WHITE BLOOD COUNT 7.8 10^3/uL (4.0-10.5)
[2019-03-27] MEDS ORDERED: LIDOCAINE 0.5% INJ-PF (5 MG/ML) 50 ML SDV ONE (09:49)
[2019-03-27 09:55] LABS: ANION GAP 11 (5-19); BLOOD UREA NITROGEN 68 mg/dL (7-20); CARBON DIOXIDE 28 mmol/L (22-30); CHLORIDE 98 mmol/L (98-107); GLUCOSE 147 mg/dL (75-110); POTASSIUM 5.2 mmol/L (3.6-5.0)
[2019-03-27] MEDS ORDERED: MIDAZOLAM 2 MG/2 ML INJ ONE (10:01)
[2019-03-27] MEDS ORDERED: FENTANYL CITRATE INJ/PF 100 MCG/2 ML AMPUL ONE (10:01)
[2019-03-27] MEDS ORDERED: HEPARIN SOD (PORCINE) 5,000 UNIT/ML 1 ML VIAL ONE (10:02)
[2019-03-27] MEDS ORDERED: DIAZEPAM 5 MG TABLET ONE (10:24)
[2019-03-27] MEDS ORDERED: OXYCODONE-ACETAMINOPHEN 5-325 MG TABLET ONE (10:24)
--- NOTE | 2019-03-27 11:44 | PDOC H&P ---
General Chief Complaint: The patient referred across for dialysis for angiogram of the fistula. It is "a "pulling clots. - Diagnosis (1) Diabetes mellitus type 2 in nonobese Is this a Current Diagnosis?: Yes (2) Dialysis AV fistula malfunction Is this a Current Diagnosis?: Yes (3) End-stage renal disease on hemodialysis Is this a Current Diagnosis?: Yes (4) Hypertension Is this a Current Diagnosis?: Yes - Current Medications/Allergies Home Medications: Bumetanide [Bumex 2 mg Tablet] 4 mg PO BID 03/15/18 Gabapentin [Neurontin 300 mg Capsule] 300 mg PO Q12 03/15/18 Carvedilol [Coreg] 1 tab PO Q12 02/03/19 Doxazosin Mesylate [Cardura] 4 mg PO BID 02/03/19 Folic Acid/Vit B Complex and C [Dialyvite 800 Tablet] 0.8 mg PO DAILY 02/03/19 Insulin Aspart Prot/Insuln Asp [Novolog Mix 70-30 Flexpen Syrn] 26 unit SQ .AM 02/03/19 Insulin Aspart Prot/Insuln Asp [Novolog Mix 70-30 Flexpen Syrn] 26 unit SQ .HS 02/03/19 Ketorolac Tromethamine 0.45% [Acuvail 0.45% Oph Soln 0.4 ml/Dropperette] 1 drop OP ASDIR 02/03/19 Moxifloxacin HCl [Vigamox 0.5% Oph Soln 3 ml] 1 drop OP ASDIR 02/03/19 Prednisolone Acetate [Pred Forte] 1 drop OP ASDIR 02/03/19 Sevelamer Carbonate 2,400 mg PO .WITH MEALS 02/03/19 Allergies/Adverse Reactions: adhesive Allergy (Verified 02/03/19 10:23) clarithromycin [From Biaxin] Allergy (Verified 12/13/18 12:43) Past Medical History Cardiac Medical History: Reports: Hypertension - MEDICATED Denies: Coronary Artery Disease, Myocardial Infarction - AT [place] FOR POSS TRANSPLANT Pulmonary Medical History: Denies: Asthma, Bronchitis, Chronic Obstructive Pulmonary Disease (COPD), Pneumonia Neurological Medical History: Denies: Seizures Endocrine Medical History: Reports: Diabetes Mellitus Type 2 Renal/ Medical History: Reports: End Stage Renal Disease GI Medical History: Denies: Hepatitis, Hiatal Hernia Musculoskeltal Medical History: Reports: Arthritis - SPINE & HANDS Hematology: Denies: Anemia - NOT SURE, Sickle Cell Disease Past Surgical History Past Surgical History: Reports: Other - EGD and colonoscopy recently Permacath placement Denies: Pacemaker Family History Family History: CAD, DM Parental Family History Reviewed: No Children Family History Reviewed: No Sibling(s) Family History Reviewed.: No Social History Smoking Status: Never Smoker Frequency of Alcohol Use: Rare Hx Recreational Drug Use: No Drugs: None Physical Exam Vital Signs: Temp Pulse Resp BP Pulse Ox 98.0 F 82 18 183/101 H 95 03/27/19 10:08 03/27/19 10:08 03/27/19 10:08 03/27/19 10:08 03/27/19 10:08 Intake & Output 03/26/19 03/27/19 03/28/19 06:59 06:59 06:59 Weight 117.934 kg Additional comments: Constitutional: Well-developed well-nourished gentleman. No apparent acute distress. Eyes: Mucous membranes pink and moist, pupils equal and reactive to light. Conjunctiva normal. Cornea normal. ENT: Hearing grossly normal. External pinna normal to inspection. Teeth mostly intact. Tongue normal to inspection. Cardiac: Heart sounds normal. Respiratory: breath sounds are present bilaterally, normal. Normal respiratory effort. Skin: Normal to inspection. No ulcers, normal turgor. Psychiatric: Judgment, memory, insight seem normal. Mood is pleasant and appropriate. Extremities: Upper extremities show normal range of movement. Pulses present noted to the radial arteries. Capillary refill normal. No cyanosis noted. No muscle wasting noted. Right-sided radiocephalic fistula in place, somewhat soft, suggesting possible inflow problems. Impression/Plan Impression: #1 malfunctioning AV fistula, right radiocephalic. 2. End-stage renal disease on hemodialysis. 3. Diabetes mellitus type 2. 4. Hypertension. Plan: Fistula angiogram gram and possible angioplasty propose. The patient is agreeable. The risks, benefits, expected outcome and alternatives are understood by him and he wishes to proceed.
--- NOTE | 2019-03-27 11:48 | Discharge Summary ---
Discharge Summary (SDC) - Discharge Final Diagnosis: #1 malfunctioning AV fistula, right radiocephalic. 2. End-stage renal disease on hemodialysis. 3. Diabetes mellitus type 2. 4. Hypertension. Date of Surgery: 03/27/19 Discharge Date: 03/27/19 Condition: Fair Treatment or Instructions: Discharge home [after recovery per ASU criteria]. Diet , [renal],as tolerated, when fully awake advance as tolerated. Activities within moderation encouraged. Follow up in my office by appointment in about [1 week]. Call for appointment. Leave wounds [covered], [keep clean and dry, until hemodialysis. Follow-up in office by appointment in about 1 month. May shower [in 48 hrs], [try to keep operated area as dry as possible]. Referrals: BRYAN SAGE PA [Primary Care Provider] - Discharge Diet: Other (Comments) - Renal. Respiratory Treatments at Home: Deep Breathing/Coughing Discharge Activity: Activity As Tolerated Report the Following to Your Physician Immediately: Shortness of Breath, Unusual Bleeding
--- NOTE | 2019-03-27 11:54 | Operative Report ---
Operative Report DATE OF SURGERY: 03/27/19 PREOPERATIVE DIAGNOSIS: #1 malfunctioning AV fistula, right radiocephalic. 2. End-stage renal disease on hemodialysis. 3. Diabetes mellitus type 2. 4. Hypertension. POSTOPERATIVE DIAGNOSIS: #1 malfunctioning AV fistula, right radiocephalic. 2. End-stage renal disease on hemodialysis. 3. Diabetes mellitus type 2. 4. Hypertension. OPERATION: 1. Needle access into the fistula. 2. Fistula angioplasty. 3. Angiogram and interpretation. SURGEON: SANDY ROQUE LEAN MANUFACTURING ENGINEER: None. ANESTHESIA: Moderate Sedation TISSUE REMOVED OR ALTERED: Not applicable. COMPLICATIONS: None. ESTIMATED BLOOD LOSS: 2 mL. INTRAOPERATIVE FINDINGS: Of a well founded right radiocephalic fistula, lower forearm. Appropriate dilatation and thrill. Angiogram demonstrates excellent outflow with no stenosis noted. The inflow is from a comparatively small radial artery. Slightly tight area of stenosis is appreciated at the arteriovenous anastomosis. This was addressed with a 4mm balloon with good functional outcome. PROCEDURE: PROCEDURE: After verifying the procedure and having obtained informed consent, the patient's right arm and forearm were prepared with Chlorhexidine and draped out with sterile linen. Local anesthesia infiltrated. Percutaneous access into the fistula ,[retrograde], obtained about [20 cm] from the arteriovenous anastomosis using a micro puncture needle followed by micro puncture wire and then a micro puncture catheter. A preliminary antegrade angiogram done. a 6 Welsh short introducer was placed, this was followed by a [place] catheter which was manipulated into the artery. Angioplasty was now done at the distal radial artery just over the anastomotic and perianastomotic segment. This was done very carefully and using a 3 mils syringe for 1 minute. Angiogram demonstrated successful outcome. Completion angiogram demonstrated [satisfactory result]. The instrumentation was now withdrawn over hand pressure for 10 minutes Exposure time: 1.4 minutes Radiation: 4.25 Ashleigh hartley Contrast: 25 mL of Isovue-M 300 low osmolality. DICTATING PHYSICIAN: SANDY BAE M.D. cc: SANDY BAE M.D. ([id number]) >>
[2019-03-27 13:04] VITALS: BP 175/101
--- NOTE | 2019-03-27 13:49 | RADIOLOGY REPORT (SQ) ---
EXAM DESCRIPTION: FISTULAGRAM W/PLASTY COMPLETED DATE/TIME: 03/27/2019 11:27 am REASON FOR STUDY: T82.858A T82.858A STENOSIS OF OTHER VASCULAR PROSTH DEV/GRFT, INIT COMPARISON: 12/19/2018 FLUOROSCOPY TIME: 1.4 minutes 6 series of digital fluoroscopic images saved to PACS. TECHNIQUE: Intra-operative images acquired during surgical procedure to evaluate progress. NUMBER OF IMAGES: 6 series of digital fluoroscopic images LIMITATIONS: None. FINDINGS: Intra procedural imaging and fluoro during evaluation of right upper extremity dialysis ac cess by Dr. Kwong. Please see the operative report for further details IMPRESSION: IMAGE(S) OBTAINED DURING PROCEDURE. COMMENT: Quality ID [id number]: Final reports for procedures using fluoroscopy that document radiation exp osure indices, or exposure time and number of fluorographic images (if radiation exposure indices are not available) Please consult full operative report of the attending physician for description of the procedure. TECHNICAL DOCUMENTATION: JOB ID: [id number] [employer]- All Rights Reserved Reading location - IP/workstation name: [email or web address]
--- NOTE | 2019-03-27 14:44 | EKG REPORT ---
SEVERITY:- ABNORMAL ECG - SINUS RHYTHM PROBABLE LEFT ATRIAL ABNORMALITY INCOMPLETE RBBB AND LAFB BORDERLINE PROLONGED QT INTERVAL : Confirmed by: Etelvina Sewell MD 27-Mar-2019 14:43:13
== END 2019-03-27 12:52 | disposition home or self-care (01) ==
LOC: CCL 08:48
PROVIDERS: ATTEND Surgery
DX: T82.858A Stenosis of other vascular prosthetic devices, implants and grafts, initial encounter (principal); Y83.2 Surgical operation with anastomosis, bypass or graft as the cause of abnormal reaction of the patient, or of later complication, without mention of misadventure at the time of the procedure; E11.22 Type 2 diabetes mellitus with diabetic chronic kidney disease; I12.0 Hypertensive chronic kidney disease with stage 5 chronic kidney disease or end stage renal disease; N18.6 End stage renal disease; Z99.2 Dependence on renal dialysis; I89.0 Lymphedema, not elsewhere classified; E11.43 Type 2 diabetes mellitus with diabetic autonomic (poly)neuropathy; Z79.899 Other long term (current) drug therapy; Z79.4 Long term (current) use of insulin; Z01.818 Encounter for other preprocedural examination
CPT/HCPCS: 36415; 85027; 80048; 36902; 93005; 93010; C1752; C1887; Q9967; C1769; J2250; J1644 ×2; A9270 ×2; J3010; J3490

== ENCOUNTER 2019-03-27 19:05 | Observation (INO) | payer MEDICARE, OTHER ==
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
[2019-03-27 20:19] LABS: ABSOLUTE BASOPHILS # (AUTO) 0.1 10^3/uL (0.0-0.2); ABSOLUTE EOSINOPHILS # (AUTO) 0.4 10^3/uL (0.0-0.6); ABSOLUTE LYMPHOCYTES (AUTO) 1.3 10^3/uL (0.5-4.7); ABSOLUTE MONOCYTES (AUTO) 0.5 10^3/uL (0.1-1.4); BASOPHILS % (AUTO) 1.4 % (0-2); EOSINOPHILS % (AUTO) 5.4 % (0-6); HEMATOCRIT 30.9 % (37.9-51.0); HEMOGLOBIN 10.5 g/dL (13.5-17.0); LYMPHOCYTES % (AUTO) 17.5 % (13-45); MEAN CORPUSCULAR HEMOGLOBIN 28.7 pg (27.0-33.4); MEAN CORPUSCULAR HGB CONC 33.9 g/dL (32.0-36.0); MEAN CORPUSCULAR VOLUME 84 fl (80-97); MONOCYTES % (AUTO) 7.2 % (3-13); PLATELET COUNT 248 10^3/uL (150-450); RED BLOOD COUNT 3.66 10^6/uL (4.35-5.55); RED CELL DISTRIBUTION WIDTH 14.5 % (11.5-14.0); SEGMENTED NEUTROPHILS % (AUTO) 68.5 % (42-78); TOTAL CELLS COUNTED % (AUTO) 100 %; WHITE BLOOD COUNT 7.3 10^3/uL (4.0-10.5)
[2019-03-27 20:35] LABS: ALBUMIN 3.9 g/dL (3.5-5.0); ALKALINE PHOSPHATASE 186 U/L (38-126); ANION GAP 12 (5-19); ASPARTATE AMINO TRANSFERASE 17 U/L (17-59); BILIRUBIN,DIRECT 0.3 mg/dL (0.0-0.4); BILIRUBIN,TOTAL 0.4 mg/dL (0.2-1.3); BLOOD UREA NITROGEN 72 mg/dL (7-20); CALCIUM 8.7 mg/dL (8.4-10.2); CARBON DIOXIDE 27 mmol/L (22-30); CHLORIDE 97 mmol/L (98-107); CREATINE KINASE 286 U/L (55-170); GLUCOSE 304 mg/dL (75-110); TOTAL PROTEIN 7.1 g/dL (6.3-8.2)
[2019-03-27 20:57] LABS: POTASSIUM 6.3 mmol/L (3.6-5.0)
--- NOTE | 2019-03-27 21:14 | RADIOLOGY REPORT (SQ) ---
XR CHEST 2 VIEWS EXAM DATE: 03/27/2019 7:32 PM CDT HISTORY: Short of breath crackles. COMPARISON: None. FINDINGS: The heart size is within normal limits. No consolidation, pleural effusion, or pneumothorax is seen. The bony thorax is intact. IMPRESSION: No evidence of acute cardiopulmonary disease.
[2019-03-27] MEDS ORDERED: SODIUM POLYSTYRENE SULFONATE 15 GM/60 ML PO ONE (21:47)
[2019-03-27] MEDS ORDERED: CALCIUM GLUCONATE 1000 MG/10 ML INJ IV ONE (21:48)
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
[2019-03-28] MEDS ORDERED: MAG HYDROX/AL HYDROX/SIMETH SUSP 30 ML UDCUP PO PRN (02:24)
[2019-03-28] MEDS ORDERED: MAGNESIUM HYDROXIDE SUSP 30 ML UDCUP PO PRN (02:24)
[2019-03-28] MEDS ORDERED: ONDANSETRON HCL INJ/PF 4 MG/2 ML SDV IV PRN (02:24)
[2019-03-28] MEDS ORDERED: ONDANSETRON 4 MG TAB.RAPDIS PO PRN (02:24)
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
[2019-03-28] MEDS ORDERED: DEXTROSE 40% GEL 15 GM TUBE PO PRN ×2 (02:32)
[2019-03-28] MEDS ORDERED: DEXTROSE 50%-WATER 25 GM/50 ML DISP.SYRIN IV PRN ×2 (02:32)
[2019-03-28] MEDS ORDERED: GLUCAGON,HUMAN RECOMB 1 MG INJ IM PRN (02:32)
[2019-03-28] MEDS ORDERED: NALBUPHINE HCL INJ 10 MG/1 ML AMPULE IV PRN ×4 (02:35→03:00)
[2019-03-28 03:47] LABS: ANION GAP 15 (5-19); BLOOD UREA NITROGEN 75 mg/dL (7-20); CALCIUM 8.6 mg/dL (8.4-10.2); CARBON DIOXIDE 25 mmol/L (22-30); CHLORIDE 99 mmol/L (98-107); GLUCOSE 120 mg/dL (75-110); POTASSIUM 5.6 mmol/L (3.6-5.0)
[2019-03-28] MEDS ORDERED: HEPARIN SOD (PORCINE) 5,000 UNIT/ML 1 ML VIAL SUBCUT SCH (06:00)
[2019-03-28] MEDS ORDERED: SEVELAMER HCL 800 MG TABLET PO SCH (08:00)
[2019-03-28] MEDS ORDERED: HUM INSULIN NPH/REG INSULIN HM 100 UNIT/1 ML 3 ML SUBCUT SCH (08:00)
[2019-03-28] MEDS ORDERED: INSULIN REG, HUMAN 100 UNIT/ML 3 ML VIAL (PYX) SUBCUT SCH (08:00)
--- NOTE | 2019-03-28 08:12 | EKG REPORT ---
SEVERITY:- ABNORMAL ECG - SINUS RHYTHM PROBABLE LEFT ATRIAL ABNORMALITY LEFT ANTERIOR FASCICULAR BLOCK : Confirmed by: Etelvina Sewell MD 28-Mar-2019 08:12:13
[2019-03-28] MEDS ORDERED: LOPERAMIDE HCL 2 MG CAPSULE PO ONE (08:59)
[2019-03-28 09:20] VITALS: BP 142/64
[2019-03-28] MEDS ORDERED: DOXAZOSIN MESYLATE 4 MG TABLET PO SCH (10:00)
[2019-03-28] MEDS ORDERED: CARVEDILOL 6.25 MG TABLET PO SCH (10:00)
[2019-03-28] MEDS ORDERED: FAMOTIDINE 20 MG TABLET PO SCH (10:00)
[2019-03-28] MEDS ORDERED: GABAPENTIN 300 MG CAPSULE PO SCH (10:00)
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
== END 2019-03-28 09:30 | disposition home or self-care (01) ==
LOC: ER 19:05 → EH 03-28 00:04 → 4N 03-28 02:16
PROVIDERS: ADMIT Emergency Medicine; ATTEND Emergency Medicine
DX: E87.5 Hyperkalemia (principal); E11.22 Type 2 diabetes mellitus with diabetic chronic kidney disease; I12.0 Hypertensive chronic kidney disease with stage 5 chronic kidney disease or end stage renal disease; N18.6 End stage renal disease; R05 Cough; E66.9 Obesity, unspecified; M47.9 Spondylosis, unspecified; R19.7 Diarrhea, unspecified; Z99.2 Dependence on renal dialysis
CPT/HCPCS: 93005; 99285; 96374; 36415; 82962; 82550; 83735; 87070; 71046; 93010; G0378 ×2; J0610; A9270 ×3

== ENCOUNTER → 2019-07-07 | Outpatient (CLI) | payer MEDICARE, OTHER ==
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
== END ==
LOC: OD 16:42
PROVIDERS: ATTEND Physician Assistant Medical
DX: M25.561 Pain in right knee (principal)

== ENCOUNTER 2019-07-14 10:12 | Emergency (ER) | payer MEDICARE, OTHER ==
[2019-07-14] MEDS ORDERED: ONDANSETRON HCL INJ/PF 4 MG/2 ML SDV IV ONE (11:46)
--- NOTE | 2019-07-14 11:47 | ER Document Report ---
ED Medical Screen (RME) - General Chief Complaint: Nausea/Vomiting/Diarrhea Stated Complaint: VOMITING,DIARRHEA Time Seen by Provider: 07/14/19 11:42 Primary Care Provider: JESSENIA MARIA PA-C [Primary Care Provider] - Follow up as needed Mode of Arrival: Wheelchair Information source: Patient Notes: 39-year-old male patient presented to the emergency department with nausea, vomiting and diarrhea that began 2 days ago. Patient reports he is a dialysis patient and states he missed dialysis today because he is sick and came to the emergency department. He denies any fever or abdominal pain. Exam: Abdomen mildly tender but without guarding or rebound. I have greeted and performed a rapid initial assessment of this patient. A comprehensive ED assessment and evaluation of the patient, analysis of test results and completion of the medical decision making process will be conducted by additional ED providers. I have specifically instructed the patient or family members with the patient to immediately return to any nursing staff should anything change in the patient's condition or with their chief complaint. TRAVEL OUTSIDE OF THE [place] IN LAST 30 DAYS: No - Related Data Allergies/Adverse Reactions: adhesive Allergy (Verified 07/14/19 11:41) clarithromycin [From Biaxin] Allergy (Verified 07/14/19 11:41) Home Medications: BP meds Past Medical History - Social History Chew tobacco use (# tins/day): No Frequency of alcohol use: None Drug Abuse: None - Past Medical History Cardiac Medical History: Reports: Hx Hypertension - MEDICATED Denies: Hx Coronary Artery Disease, Hx Heart Attack - AT [facility] [employer] Pulmonary Medical History: Denies: Hx Asthma, Hx Bronchitis, Hx COPD, Hx Pneumonia Neurological Medical History: Denies: Hx Cerebrovascular Accident, Hx Seizures Endocrine Medical History: Reports: Hx Diabetes Mellitus Type 2. Denies: Hx Diabetes Mellitus Type 1, Hx Hyperthyroidism, Hx Hypothyroidism Renal/ Medical History: Reports: Hx End Stage Renal Disease. 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 Denies: Hx Open Heart Surgery, Hx Pacemaker - Immunizations Hx Diphtheria, Pertussis, Tetanus Vaccination: No Physical Exam - Vital signs Vitals: Temp Pulse Resp BP Pulse Ox 97.8 F 79 20 162/106 H 97 07/14/19 10:57 07/14/19 10:57 07/14/19 10:57 07/14/19 10:57 07/14/19 10:57 Course - Vital Signs Vital signs: Temp Pulse Resp BP Pulse Ox 97.8 F 79 20 162/106 H 97 07/14/19 10:57 07/14/19 10:57 07/14/19 10:57 07/14/19 10:57 07/14/19 10:57 Doctor's Discharge - Discharge Referrals: JESSENIA MARIA PA-C [Primary Care Provider] - Follow up as needed
[2019-07-14 12:28] LABS: ABSOLUTE BASOPHILS # (AUTO) 0.1 10^3/uL (0.0-0.2); ABSOLUTE EOSINOPHILS # (AUTO) 0.3 10^3/uL (0.0-0.6); ABSOLUTE LYMPHOCYTES (AUTO) 1.2 10^3/uL (0.5-4.7); ABSOLUTE MONOCYTES (AUTO) 0.6 10^3/uL (0.1-1.4); ABSOLUTE NEUT (AUTO) 5.8 10^3/uL (1.7-8.2); BASOPHILS % (AUTO) 1.5 % (0-2); EOSINOPHILS % (AUTO) 4.1 % (0-6); HEMATOCRIT 39.8 % (37.9-51.0); HEMOGLOBIN 13.7 g/dL (13.5-17.0); LYMPHOCYTES % (AUTO) 14.6 % (13-45); MEAN CORPUSCULAR HEMOGLOBIN 29.9 pg (27.0-33.4); MEAN CORPUSCULAR HGB CONC 34.4 g/dL (32.0-36.0); MEAN CORPUSCULAR VOLUME 87 fl (80-97); MONOCYTES % (AUTO) 7.7 % (3-13); PLATELET COUNT 248 10^3/uL (150-450); RED BLOOD COUNT 4.58 10^6/uL (4.35-5.55); SEGMENTED NEUTROPHILS % (AUTO) 72.1 % (42-78); TOTAL CELLS COUNTED % (AUTO) 100 %
[2019-07-14 12:45] LABS: ALBUMIN 4.5 g/dL (3.5-5.0); ALKALINE PHOSPHATASE 215 U/L (38-126); ASPARTATE AMINO TRANSFERASE 20 U/L (17-59); BILIRUBIN,DIRECT 0.5 mg/dL (0.0-0.4); BILIRUBIN,TOTAL 0.6 mg/dL (0.2-1.3); BLOOD UREA NITROGEN 72 mg/dL (7-20); CALCIUM 8.9 mg/dL (8.4-10.2); CARBON DIOXIDE 23 mmol/L (22-30); CHLORIDE 94 mmol/L (98-107); POTASSIUM 5.6 mmol/L (3.6-5.0); TOTAL PROTEIN 8.2 g/dL (6.3-8.2)
[2019-07-14 12:55] LABS: ANION GAP 20 (5-19)
[2019-07-14 13:00] LABS: GLUCOSE 421 mg/dL (75-110)
--- NOTE | 2019-07-14 13:23 | ER Document Report ---
ED General - General Chief Complaint: Nausea/Vomiting/Diarrhea Stated Complaint: VOMITING,DIARRHEA Time Seen by Provider: 07/14/19 11:42 Primary Care Provider: JESSENIA MARIA PA-C [ALLIED HEALTH PROFESSIONAL] - Follow up as needed Mode of Arrival: Wheelchair TRAVEL OUTSIDE OF THE [place] IN LAST 30 DAYS: No - HPI Notes: 39 y/o dialysis patient presenting to ED for evaluation of nausea/vomiting x3 days he has chronic diarrhea and notes that that is unchanged from previous diarrhea - no blood in it, unrelieved by imodium. has seen GI for this w/o clear source nausea/vomiting is new and is having LLQ abdominal pain. no blood in emesis. states he has LLQ abd pain intermittently he is also a diabetic and has not been taking insulin due to not feeling well he was last dialyzed Jorge L Zamarripa and states that he is under his dry weight currently denies SOB dialyzes from RUE fistula - Related Data Allergies/Adverse Reactions: adhesive Allergy (Verified 07/14/19 11:41) clarithromycin [From Biaxin] Allergy (Verified 07/14/19 11:41) Home Medications: BP meds Past Medical History - General Information source: Patient - Social History Smoking Status: Unknown if Ever Smoked Chew tobacco use (# tins/day): No Frequency of alcohol use: None Drug Abuse: None Family History: DM, Hypertension, Other - Renal disease. denies: CAD, Malignancy Patient has suicidal ideation: No Patient has homicidal ideation: No - Past Medical History Cardiac Medical History: Reports: Hx Hypertension - MEDICATED Denies: Hx Coronary Artery Disease, Hx Heart Attack - AT [place] FOR [employer] Pulmonary Medical History: Denies: Hx Asthma, Hx Bronchitis, Hx COPD, Hx Pneumonia Neurological Medical History: Denies: Hx Cerebrovascular Accident, Hx Seizures Endocrine Medical History: Reports: Hx Diabetes Mellitus Type 2. Denies: Hx Diabetes Mellitus Type 1, Hx Hyperthyroidism, Hx Hypothyroidism Renal/ Medical History: Reports: Hx End Stage Renal Disease. 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 Denies: Hx Open Heart Surgery, Hx Pacemaker - Immunizations Hx Diphtheria, Pertussis, Tetanus Vaccination: No Review of Systems - Review of Systems Constitutional: No symptoms reported EENT: No symptoms reported Cardiovascular: No symptoms reported Respiratory: No symptoms reported Gastrointestinal: Abdominal pain, Diarrhea, Nausea, Vomiting Genitourinary: No symptoms reported Male Genitourinary: No symptoms reported Musculoskeletal: No symptoms reported Skin: No symptoms reported Hematologic/Lymphatic: No symptoms reported Neurological/Psychological: No symptoms reported Physical Exam - Vital signs Vitals: Temp Pulse Resp BP Pulse Ox 97.8 F 79 20 162/106 H 97 07/14/19 10:57 07/14/19 10:57 07/14/19 10:57 07/14/19 10:57 07/14/19 10:57 Interpretation: Normal - General General appearance: Appears well, Alert - HEENT Head: Normocephalic, Atraumatic Eyes: Normal Pupils: PERRL - Respiratory Respiratory status: No respiratory distress Chest status: Nontender Breath sounds: Normal Chest palpation: Normal - Cardiovascular Rhythm: Regular Heart sounds: Normal auscultation Murmur: No Notes: RUE fistula - Abdominal Inspection: Normal Distension: No distension Bowel sounds: Normal Tenderness: Tender - LLQ no rebound/guarding Organomegaly: No organomegaly - Back Back: Normal, Nontender - Extremities General upper extremity: Normal inspection, Nontender, Normal color, Normal ROM, Normal temperature General lower extremity: Normal inspection, Nontender, Normal color, Normal ROM, Normal temperature, Normal weight bearing. No: Narda's sign - Neurological Neuro grossly intact: Yes Cognition: Normal Orientation: AAOx4 Patti Coma Scale Eye Opening: Spontaneous Patti Coma Scale Verbal: Oriented Patti Coma Scale Motor: Obeys Commands Ramsey Coma Scale Total: 15 Speech: Normal Motor strength normal: LUE, RUE, LLE, RLE Sensory: Normal - Psychological Associated symptoms: Normal affect, Normal mood - Skin Skin Temperature: Warm Skin Moisture: Dry Skin Color: Normal Course - Re-evaluation Re-evalutation: 07/14/19 14:08 hyperlgycemic w/ hyponatremia and mild hyperkalemia check EKG for changes associated w/ K check CT due to abd pain and nausea/vomiting zofran for symptoms insulin to correct sugar check CXR to eval for pulmonary edema will contact nephrology regarding dialysis 07/14/19 14:59 CT non-acute CXR w/o significant edema EKG w/ LVH but w/o QRS widening and discrete P waves are present -> doubt symptomatic hyperkalemia he is tolerating PO well here will discuss w/ nephrology business continuity analyst (Calling) to determine plan - Vital Signs Vital signs: Temp Pulse Resp BP Pulse Ox 97.8 F 79 20 162/106 H 97 07/14/19 10:57 07/14/19 10:57 07/14/19 10:57 07/14/19 10:57 07/14/19 10:57 - Laboratory Result Diagrams: 07/14/19 12:10 07/14/19 12:10 Laboratory results interpreted by me: 07/14/19 12:10 Sodium 136.8 L Potassium 5.6 H Chloride 94 L Anion Gap 20 H BUN 72 H Creatinine 10.72 H Est GFR ( Amer) 7 L Est GFR (MDRD) Non-Af 5 L Glucose 421 H* Direct Bilirubin 0.5 H Alkaline Phosphatase 215 H - EKG Interpretation by Me EKG shows normal: Sinus rhythm Rate: Normal Rhythm: NSR [place]/QRS: RBBB, LAHB/LAFB Additional EKG results interpreted by me: 07/14/19 15:04 prolonged QT, lateral infarct old Discharge - Discharge Clinical Impression: End stage renal disease, Hyperkalemia, Hyperglycemia, Elevated blood pressure reading Vomiting Qualifiers: Vomiting type: unspecified Vomiting Intractability: non-intractable Nausea presence: with nausea Qualified Code(s): R11.2 - Nausea with vomiting, unspecified Condition: Stable Disposition: HOME, SELF-CARE Instructions: Vomiting ([facility]) Additional Instructions: follow up with primary doctor as an outpatient return to the ED with worsening take all home medicines as directed Forms: Elevated Blood Pressure Referrals: JESSENIA MARIA PA-C [ALLIED HEALTH PROFESSIONAL] - Follow up as needed
[2019-07-14] MEDS ORDERED: INSULIN REG, HUMAN 100 UNIT/ML 3 ML VIAL (PYX) IV ONE (13:44)
[2019-07-14] MEDS ORDERED: HYDRALAZINE HCL INJ/PF 20 MG/1 ML SDV IV ONE (14:05)
--- NOTE | 2019-07-14 14:40 | RADIOLOGY REPORT (SQ) ---
EXAM DESCRIPTION: CT ABD/PELVIS NO ORAL OR IV COMPLETED DATE/TIME: 07/14/2019 2:15 pm REASON FOR STUDY: abdominal pain COMPARISON: CT of the abdomen pelvis without contrast from 09/24/2017. TECHNIQUE: CT scan of the abdomen and pelvis performed without intravenous or oral contrast. Images reviewed with lung, soft tissue, and bone windows. Reconstructed coronal and sagittal MPR images revi ewed. All images stored on PACS. All CT scanners at this facility use dose modulation, iterative reconstruction, and/or weight based d osing when appropriate to reduce radiation dose to as low as reasonably achievable (ALARA). [facility]: Dose Right [facility]: CareDose [facility]: Dose Right [facility]: Teradose 4D [facility]: Smart dotCloud RADIATION DOSE: CT Rad equipment meets quality standard of care and radiation dose reduction techniq ues were employed. CTDIvol: 18.1 mGy. DLP: 1094 mGy-cm.mGy. LIMITATIONS: None. FINDINGS: LOWER CHEST: No acute findings. NON-CONTRASTED LIVER, SPLEEN, ADRENALS: Evaluation is limited due to the absence of intravenous contr ast. There is no CT evidence of hepatic steatosis. The spleen is borderline enlarged and it measure s 13.9 cm in AP diameter. There is a 15 x 14 mm accessory splenium near the splenic hilum. There is no abnormality of the adrenal glands. PANCREAS: No acute gross abnormality of the pancreas. GALLBLADDER: No abnormality that is apparent on CT. RIGHT KIDNEY AND URETER: Evaluation is limited due to the absence of intravenous contrast. There is no hydronephrosis, nephrolithiasis, hydroureter or ureterolithiasis. LEFT KIDNEY AND URETER: Evaluation is limited due to the absence of intravenous contrast. There is n o hydronephrosis, nephrolithiasis, hydroureter or ureterolithiasis. AORTA AND RETROPERITONEUM: No aneurysm of the abdominal aorta. No retroperitoneal adenopathy, hemorr elida or mass. BOWEL AND PERITONEAL CAVITY: No bowel obstruction, bowel wall thickening, or pericolonic/perienteric inflammation. No mesenteric adenopathy free intraperitoneal fluid, or mesenteric/ omental inflammati on. APPENDIX: Normal. PELVIS, BLADDER, AND ABDOMINAL WALL: The urinary bladder is partially distended. The prostate gland is enlarged and it measures 4.8 cm in transverse diameter. BONES: No acute findings. OTHER: No other finding. IMPRESSION: No acute intra-abdominal abnormality. COMMENT: Quality ID # [id number]: Final reports with documentation of one or more dose reduction techniques (e.g., Automated exposure control, adjustment of the mA and/or kV according to patient size, use of iterative reconstruction technique) TECHNICAL DOCUMENTATION: JOB ID: [id number] [employer]- All Rights Reserved Reading location - IP/workstation name: [email or web address]
--- NOTE | 2019-07-14 14:57 | RADIOLOGY REPORT (SQ) ---
EXAM DESCRIPTION: CHEST 2 VIEWS COMPLETED DATE/TIME: 07/14/2019 2:46 pm REASON FOR STUDY: end stage renal disease COMPARISON: PA and lateral views of the chest from 03/27/2019. EXAM PARAMETERS: NUMBER OF VIEWS: two views TECHNIQUE: PA and lateral views of the chest were obtained. RADIATION DOSE: NA LIMITATIONS: none FINDINGS: LUNGS AND PLEURA: No consolidation, pleural effusion or pneumothorax. MEDIASTINUM AND HILAR STRUCTURES: No mediastinal or hilar contour abnormality. HEART AND VASCULAR STRUCTURES: The cardiac silhouette and pulmonary vasculature are within normal tinajero its. BONES: No acute findings. HARDWARE: None in the chest. OTHER: No other finding. IMPRESSION: No acute cardiopulmonary process. TECHNICAL DOCUMENTATION: JOB ID: [id number] [employer]- All Rights Reserved Reading location - IP/workstation name: [email or web address]
[2019-07-14] MEDS ORDERED: NORMAL SALINE 1000 ML 1,000 ML IV PRN (15:15)
--- NOTE | 2019-07-14 19:26 | EKG REPORT ---
SEVERITY:- ABNORMAL ECG - SINUS RHYTHM LEFT ATRIAL ABNORMALITY INCOMPLETE RBBB AND LAFB CONSIDER LEFT VENTRICULAR HYPERTROPHY LATERAL INFARCT, AGE INDETERMINATE BORDERLINE PROLONGED QT INTERVAL : Confirmed by: Etelvina Sewell MD 14-Jul-2019 19:25:08
[2019-07-14 19:48] VITALS: BP 175/93
--- NOTE | 2019-07-14 20:33 | PDOC CONSULTATION ---
Consultation Consult Date: 07/14/19 Provider Consulted: KANDI MARTINEZ Consult reason:: I was asked to see the patient to do hemodialysis in a patient with ESRD presenting with some hyperkalemia and missing dialysis treatment today. History of Present Illness Admission Date/PCP: AVELINA MCDANIELS History of Present Illness: CECILIO ALCAZAR JR is a 39 year old male known to me with history of ESRD on maintenance hemodialysis on MWF, diabetes mellitus type 2, and hypertension presenting to the emergency room with vomiting and diarrhea. Patient relates that since July 10 he has been nauseated, vomiting and has continuous diarrhea. He denies any blood in the stool. He also complains of left upper quadrant abdominal pain. He has not been eating because of the above symptoms for the last few days so he has not been giving himself insulin. Upon presentation he has hyperkalemia with potassium of 5.6. He also has hyperglycemia with blood sugar of 421. In the emergency room he was given IV Zofran and insulin. 10 units IV. He felt better with treatment. He had a chest x-ray done which was negative for any acute pathology. He also had a CT scan of the abdomen to evaluate his abdominal pain but this did not show any acute intra-abdominal process. Both kidneys has no hydronephrosis, nephrolithiasis, nor hydroureter. A note of enlarged prostate measuring 4.8 cm was reported. Patient's last hemodialysis was on July 11. He is due for dialysis today. I arranged for dialysis and is currently seeing the patient during dialysis treatment. He is under his dry weight because he has not been eating for the last few days due to his GI symptoms. When I saw him he seems to be comfortable and denies any more diarrhea and has not been vomiting. He states that he he has been having his usual diarrhea and Imodium does not help. His blood pressure is initially elevated but it readily went down after initiation of dialysis. He is tolerating dialysis well without much issues so far. 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 Hematology Medical History: Reports Anemia of Chronic Kidney Disease Past Surgical History Past Surgical History: Reports: Dialysis Access Surgery AVF, Other - EGD and colonoscopy recently Permacath placement Social History Information Source: Patient Occupation: Unemployed Lives with: Spouse/Significant other Smoking Status: Former Smoker Electronic Cigarette use?: No Frequency of Alcohol Use: Rare Hx Recreational Drug Use: No Drugs: None Hx Prescription Drug Abuse: No Family History Family History: CAD - Father, DM - Maternal grandmother and mother, Hypertension - Parents Parental Family History Reviewed: Yes Children Family History Reviewed: NA Sibling(s) Family History Reviewed.: Yes Medication/Allergy Home Medications: Bumetanide [Bumex 2 mg Tablet] 4 mg PO BID 03/28/19 Calcium Acetate [Phoslo 667 mg Capsule] 2,001 mg PO MEALS 03/28/19 Calcium Acetate [Phoslo 667 mg Capsule] 667 mg PO .SNACKS 03/28/19 Carvedilol [Coreg 6.25 mg Tablet] 6.25 mg PO BID 03/28/19 Doxazosin Mesylate [Cardura 2 mg Tablet] 2 mg PO BID 03/28/19 Folic Acid/Vit B Complex and C [Dialyvite 800 Tablet] 0.8 mg PO DAILY 03/28/19 Gabapentin [Neurontin 300 mg Capsule] 300 mg PO Q12 03/28/19 Insulin Aspart Prot/Insuln Asp [Novolog Mix 70-30 Flexpen Syrn] 20 units SQ ACSUPPER 03/28/19 Insulin Aspart Prot/Insuln Asp [Novolog Mix 70-30 Flexpen Syrn] 24 units SQ ACBRKFST 03/28/19 Ketorolac Tromethamine [Acular] 1 drop OD BID 03/28/19 Moxifloxacin HCl [Vigamox 0.5% Oph Soln 3 ml] 1 drop OD TID 03/28/19 Prednisolone Acetate [Pred Forte] 1 drop OD TID 03/28/19 Allergies/Adverse Reactions: adhesive Allergy (Verified 07/14/19 11:41) clarithromycin [From Biaxin] Allergy (Verified 07/14/19 11:41) Review of Systems All systems: reviewed and no additional remarkable complaints except as stated Review of Systems: Constitutional: ABSENT: chills, fatigue, fever(s), headache(s), weight gain, weight loss Eyes: ABSENT: visual disturbances Ears: ABSENT: hearing changes Cardiovascular: ABSENT: chest pain, dyspnea on exertion, edema, orthropnea, palpitations Respiratory: ABSENT: cough, dyspnea, hemoptysis Gastrointestinal: ABSENT: Constipation, hematemesis, hematochezia; reports nausea, vomiting, diarrhea and upper quadrant abdominal pain Genitourinary: ABSENT: dysuria, hematuria Musculoskeletal: ABSENT: joint swelling Integumentary: ABSENT: rash, wounds Neurological: ABSENT: abnormal gait, abnormal speech, confusion, dizziness, focal weakness, numbness, syncope Psychiatric: ABSENT: anxiety, depression Endocrine: ABSENT: cold intolerance, heat intolerance, polydipsia, polyuria Hematologic/Lymphatic: ABSENT: easy bleeding, easy bruising, lymphadenopathy Physical Exam Vital Signs: Temp Pulse Resp BP Pulse Ox 97.8 F 79 20 162/106 H 97 07/14/19 10:57 07/14/19 10:57 07/14/19 10:57 07/14/19 10:57 07/14/19 10:57 Intake & Output 07/13/19 07/14/19 07/15/19 06:59 06:59 06:59 Weight 119.1 kg Vitals during dialysis: Initial blood pressure was 185/100 which after few minutes on dialysis went down to 126/84, heart rate of 84, blood flow rate of 450 mL/min and dialysate flow rate of 800 mL/min. Exam: General appearance: No acute distress, cooperative, well-developed, well- nourished Head exam: PRESENT: atraumatic, normocephalic Eye exam: PRESENT: Conjunctiva [place], EOMI, PERRLA. ABSENT: conjunctival injection, scleral icterus Mouth exam: PRESENT: moist, neck supple, tongue midline Neck exam: PRESENT: full ROM. ABSENT: carotid bruit, JVD, lymphadenopathy, thyromegaly Respiratory exam: PRESENT: clear to auscultation bilaterally. ABSENT: rales, rhonchi, stridor, wheezes Cardiovascular exam: PRESENT: RRR, +S1, +S2. ABSENT: systolic murmur Pulses: PRESENT: normal radial pulses, normal dorsalis pedis pulses GI/Abdominal exam: PRESENT: normal bowel sounds, soft. Mild left upper quadrant tenderness. ABSENT: guarding, mass Rectal exam: Deferred Extremities exam: PRESENT: full ROM. ABSENT: calf tenderness, pedal edema Musculoskeletal: PRESENT: full ROM. ABSENT: deformity Neurological exam: PRESENT: alert, Awake, Oriented to person, Oriented to place, Oriented to time, reflexes normal, CN II-XII grossly intact. ABSENT: motor sensory deficit Psychiatric exam: PRESENT: appropriate affect, normal mood. ABSENT: homicidal ideation, suicidal ideation Skin exam: PRESENT: intact, dry, warm. ABSENT: rash Results Laboratory Results: 07/14/19 12:10 07/14/19 12:10 07/14/19 07/14/19 12:10 12:10 WBC 8.0 RBC 4.58 Hgb 13.7 Hct 39.8 MCV 87 MCH 29.9 MCHC 34.4 RDW 13.0 Plt Count 248 Seg Neutrophils % 72.1 Sodium 136.8 L Potassium 5.6 H Chloride 94 L Carbon Dioxide 23 Anion Gap 20 H BUN 72 H Creatinine 10.72 H Est GFR ( Amer) 7 L Glucose 421 H* Calcium 8.9 Total Bilirubin 0.6 AST 20 Alkaline Phosphatase 215 H Total Protein 8.2 Albumin 4.5 Lipase 39.9 Impressions: Chest X-Ray 07/14/19 00:00 IMPRESSION: No acute cardiopulmonary process. Abdomen/Pelvis CT 07/14/19 13:44 IMPRESSION: No acute intra-abdominal abnormality. Assessment & Plan - Diagnosis (1) End-stage renal disease on hemodialysis Is this a current diagnosis for this admission?: Yes Plan: We will do dialysis today for 3 hours, using the patient's AV fistula, with 2 potassium bath, blood flow rate of 450 mL per minute, dialysate flow rate of 800 mL per minute, ultrafiltration 1 to 1.5 L as tolerated, no heparin and no Procrit patient will be monitored throughout dialysis treatment. (2) Hyperkalemia Is this a current diagnosis for this admission?: Yes Plan: Needs dialysis as above. (3) Vomiting Qualifiers: Vomiting type: unspecified Vomiting Intractability: non-intractable Nausea presence: with nausea Qualified Code(s): R11.2 - Nausea with vomiting, unspecified Is this a current diagnosis for this admission?: Yes Plan: I suspect the patient has developed diabetic gastroparesis as he has had this symptom in the past intermittently. Symptoms is currently resolved with IV Zofran alone. (4) Chronic diarrhea Is this a current diagnosis for this admission?: Yes Plan: Patient has intermittent diarrhea even as an outpatient. Suspect the patient has also developed gastropathy. (5) Intermittent left upper quadrant abdominal pain Is this a current diagnosis for this admission?: Yes Plan: CT scan of the abdomen did not show any specific etiology. 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 The patient is currently clinically stable and symptoms is resolved. From nephrology standpoint I think the patient can be safely discharged home after dialysis today. Patient to continue with his usual dialysis schedule at [facility] as an outpatient after discharge. - Time Time Spent: 50 to 70 Minutes
== END 2019-07-14 19:53 | disposition home or self-care (01) ==
LOC: ER 10:12
DX: I13.11 Hypertensive heart and chronic kidney disease without heart failure, with stage 5 chronic kidney disease, or end stage renal disease (principal); E11.22 Type 2 diabetes mellitus with diabetic chronic kidney disease; E11.65 Type 2 diabetes mellitus with hyperglycemia; T38.3X6A Underdosing of insulin and oral hypoglycemic [antidiabetic] drugs, initial encounter; Z91.128 Patient's intentional underdosing of medication regimen for other reason; Z91.14 Patient's other noncompliance with medication regimen; N18.6 End stage renal disease; Z99.2 Dependence on renal dialysis; E87.5 Hyperkalemia; E87.1 Hypo-osmolality and hyponatremia; K52.9 Noninfective gastroenteritis and colitis, unspecified; R11.2 Nausea with vomiting, unspecified; R10.32 Left lower quadrant pain; R10.814 Left lower quadrant abdominal tenderness; I45.2 Bifascicular block; Z79.899 Other long term (current) drug therapy; Z79.1 Long term (current) use of non-steroidal anti-inflammatories (NSAID); Z79.52 Long term (current) use of systemic steroids; Z91.048 Other nonmedicinal substance allergy status; Z88.1 Allergy status to other antibiotic agents
CPT/HCPCS: 93005; 99284; 96374; 36415; 83690; 85025; 80053; 71046; 74176; 93010; A9270; J2405; G0257; J1815

== ENCOUNTER → 2020-01-02 | Outpatient (CLI) | payer MEDICARE, OTHER ==
--- NOTE | 2020-01-02 12:53 | RADIOLOGY REPORT (SQ) ---
EXAM DESCRIPTION: KNEE LEFT 3 VIEWS IMAGES COMPLETED DATE/TIME: 01/02/2020 10:41 am REASON FOR STUDY: PAIN IN LEFT KNEE,EFFUSION, UNSPECIFIED KNEE M25.562 PAIN IN LEFT KNEE M25.469 E FFUSION, UNSPECIFIED KNEE COMPARISON: None. NUMBER OF VIEWS: Three views. TECHNIQUE: AP, lateral, and sunrise patella radiographic images acquired of the left knee. LIMITATIONS: None. FINDINGS: MINERALIZATION: Normal. BONES: No acute fracture or dislocation. No worrisome bone lesions. JOINT: No effusion. SOFT TISSUES: No soft tissue swelling. No radio-opaque foreign body. OTHER: No other significant finding. IMPRESSION: NEGATIVE STUDY OF THE LEFT KNEE. NO RADIOGRAPHIC EVIDENCE OF ACUTE INJURY. TECHNICAL DOCUMENTATION: JOB ID: [id number] 2010 [employer]- All Rights Reserved Reading location - IP/workstation name: [email or web address]
== END ==
LOC: OD 10:24
PROVIDERS: ATTEND Physician Assistant Medical
DX: M25.562 Pain in left knee (principal)

== ENCOUNTER → 2020-01-16 | Outpatient (CLI) | payer MEDICARE, OTHER ==
[2020-01-16 16:38] VITALS: BP 194/86
--- NOTE | 2020-01-16 16:38 | ER RDC ASSESSMENT REPORT ---
Intake - In the Last 14 days Have you traveled outside [place]?: No Have you been in close contact with someone CONFIRMED: No Worked in Healthcare?: No - Symptoms Subjective Fever([place] feverish): No Chills: No Muscule Aches: No Runny Nose: No Sore Throat: No Cough (New or worsening chronic cough): No Shortness of breath: No Nausea or Vomiting: No Headache: No Abdominal Pain: No Diarrhea(3 or more loose stools in last 24 hours): No - Do you have any of the following Chronic lung disease: Asthma or emphysema or COPD: No Cystic Fibrosis: No Diabetes: Yes Diabetes Comment: History of diabetes type II High Blood Pressure: Yes Cardiovascular Disease: Yes Chronic Kidney Disease: Yes Chronic Kidney Disease Comment: End-stage renal disease stage V Chronic Liver Disease: No Chronic blood disorder like Sickle Cell Disease: No Weak immune system due to disease or medication: No Neurologic condition that limits movement: Yes Neurological Condition Comment: Neuropathy Developmental delay - Moderate to Severe: No Recent (within past 2 weeks) or current : No Morbid Obesity (>100 pounds over ideal weight): No Obesity Comment: Height 6 feet 2 inches weight 112.5 kg - Objective Temperature: 98.4 F Pulse Rate: 67 Respiratory Rate: 20 Blood Pressure: 194/86 O2 Sat by Pulse Oximetry: 97 Objective: Given above, testing performed: If Testing Performed: Test Specimen Type Sent to General - General Information source: Patient Notes: Patient here at [facility] for COVID testing reports his not having any symptoms and has not been exposed to anybody known for COVID states is just here for COVID only and has dialysis scheduled in [place] on Wednesday which is requiring COVID testing to be done before he can have dialysis. Patient plans to travel to [place] on . Patient sees [facility] for PCP care - Related Data Allergies/Adverse Reactions: adhesive Allergy (Verified 07/14/19 11:41) clarithromycin [From Biaxin] Allergy (Verified 07/14/19 11:41) Past Medical History - General Information source: Patient - Quit smoking 2011 - Social History Smoking Status: Former Smoker Family History: DM, Hypertension, Other - Renal disease. denies: CAD, Malignancy - Past Medical History Cardiac Medical History: Reports: Hx Hypertension - MEDICATED Denies: Hx Coronary Artery Disease Comment Only: Hx Heart Attack - AT [facility] FOR [employer] Pulmonary Medical History: Denies: Hx Asthma, Hx Bronchitis, Hx COPD, Hx Pneumonia Neurological Medical History: Denies: Hx Cerebrovascular Accident, Hx Seizures Endocrine Medical History: Reports: Hx Diabetes Mellitus Type 2. Denies: Hx Diabetes Mellitus Type 1, Hx Hyperthyroidism, Hx Hypothyroidism Renal/ Medical History: Reports: Hx End Stage Renal Disease. 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 Denies: Hx Open Heart Surgery, Hx Pacemaker Physical Exam - General General appearance: Appears well, Alert In distress: None Notes: PHYSICAL EXAMINATION: GENERAL: Well-appearing and in no acute distress. HEAD: Atraumatic, normocephalic. EYES: sclera anicteric, conjunctiva are normal. ENT: nares patent. Moist mucous membranes. NECK: Normal range of motion, supple without lymphadenopathy LUNGS: CTAB and equal. No wheezes rales or rhonchi. Resp even and unlabored. Lung sounds clear. HEART: Regular rate and rhythm without murmurs ABDOMEN: Soft, nontender, normal bowel sounds, no guarding. EXTREMITIES: No cyanosis. NEUROLOGICAL: Normal speech. PSYCH: Normal mood, normal affect. SKIN: Warm, Dry, normal turgor, Diagnostic Results Laboratory Results: Pending COVID testing results. Provided instructions regarding COVID to include: As a person under investigation for Covid 19, the [place] department of Health and Human Services, division of public health advises you to adhere to the following guidance until your test results are reported to you. If your test result is positive, you will receive additional information from your provider and your local health department at that time. Remain at home until you are cleared by the health provider or public health authorities. Keep a log of visitors to your home, notify any visitors to your home of your isolation status. If you plan to move to a new address or leave the [facility], notify the local health department in your County. Call your doctor or seek care if you have an urgent medical need. Before seeking medical care, call ahead to get instructions from the provider before arriving at the medical office clinic or hospital. Notify them that you are being tested for the virus that causes Covid 19 so that arrangements can be made, as necessary, to prevent transmission to others in the healthcare setting. Next, notify the local health department in your county. If a medical emergency arises and you need to call 911, inform the first responders that you are being tested for the virus that causes Covid 19. Next, notify the local health department in your county. Patient Education/Counseling Counseling/Education: Patient presents with upper respiratory symptoms worrisome for possible Covid 19. Patient does not have emergency worring symptoms such as difficulty breathing, shortness of breath, chest pain, pressure, confusion or cyanosis. Patient appears suitable for discharge. Patient to follow up with PCP at as needed. Patient's vital signs are stable and patient is nontoxic in appearance. Good return precautions have been discussed with patient, patient verbalized understanding and is agreeable with discharge plan of care at this time. C Discharge - Discharge Clinical Impression: COVID - 19 SCREENING Condition: Stable Disposition: Home; Selfcare
== END ==
LOC: RDC 13:33
PROVIDERS: ATTEND Nurse Practitioner Family
DX: Z20.828 Contact with and (suspected) exposure to other viral communicable diseases (principal); I12.0 Hypertensive chronic kidney disease with stage 5 chronic kidney disease or end stage renal disease; N18.6 End stage renal disease; E11.22 Type 2 diabetes mellitus with diabetic chronic kidney disease; G62.9 Polyneuropathy, unspecified; M47.899 Other spondylosis, site unspecified; E03.9 Hypothyroidism, unspecified; Z88.1 Allergy status to other antibiotic agents; Z91.048 Other nonmedicinal substance allergy status; Z87.891 Personal history of nicotine dependence
CPT/HCPCS: U0003; C9803; 87635; 99201; 99211